=== PATIENT | female | born 1960 | race Caucasian/White ===

== ENCOUNTER 2019-06-04 10:34 | Outpatient (RCR) | payer OTHER, SELFPAY ==
--- NOTE | 2019-06-03 15:18 | PCCPR ---
Patient has NOT traveled outside of the [place] or had not had contact with someone who is ill that has traveled outside of the [place] in the past 21 days. She or anyone close to her has NOT traveled to an area of the [place] that is experiencing known transmission of the coronavirus.
[2019-06-04 11:59] VITALS: PULSE 84
--- NOTE | 2019-06-12 09:59 | PCCPR ---
Program is temporarily suspended due to COVID outbreak.
--- NOTE | 2019-06-26 11:55 | PCCPR ---
Left voicemail-checking in with patient.
--- NOTE | 2019-07-03 14:39 | PCCPR ---
Called to check in with patient. voicemail left. will follow weekly.
--- NOTE | 2019-07-10 13:45 | PCCPR ---
Weekly update call-Left message.
--- NOTE | 2019-07-17 15:24 | PCCPR ---
Weekly update call-informed patient of continued closure through the month of July due to the extension of the [facility] order. No questions at this time.
--- NOTE | 2019-09-13 13:46 | PCCPR ---
Francine notified two weeks ago regarding opening of Cardiac rehab on September 22. Left message to return our call if she would like to resume the program. No call back received, Francine discharged from program.
== END 2019-06-04 23:59 | disposition home or self-care (01) ==
LOC: ANHCPREHAB 10:34
PROVIDERS: PCP Family Medicine; Visit Provider Internal Medicine Cardiovascular Disease
DX: Z95.5 Presence of coronary angioplasty implant and graft (principal)
CPT/HCPCS: 93798

== ENCOUNTER 2019-12-06 15:21 | Emergency (ER) | payer OTHER, SELFPAY ==
--- NOTE | 2019-12-06 15:29 | ED.SKABFB ---
HPI - Skin/Abscess/Foreign Bdy General Chief complaint: Burn/Smoke Inhalation Stated complaint: BURN TO L HAND Source: patient and RN notes reviewed Limitations: no limitations History of Present Illness HPI narrative: The right-handed right hand patient, on several meds, presents with wound check of burn. The patient presents with about 1% or palmar sized, sunburn-like on the extensor aspect of her right hand --that occurred with coffee 3 days ago , on Monday. There was no blistering, but pain worsened today when she scuffed it against a folder, resulting in some minimal skin loss. Symptoms are mild, worse with palpation, only temporarily relieved with her use of aloe, skin creams. Her immunizations are reported up-to-date, and reports tetanus allergy. Related Data Home Medications Medication Instructions Recorded Confirmed albuterol sulfate 90 mcg/actuation 1 puff INHALATION Q4H PRN 03/14/19 09/25/19 aerosol inhaler metoprolol tartrate [Lopressor] 50 mg PO Q12H 04/04/19 09/25/19 rosuvastatin [Crestor] 20 mg PO DAILY 04/04/19 09/25/19 budesonide-formoterol [Symbicort] 2 puff INHALATION Q12H 06/04/19 09/25/19 lisinopril 40 mg PO DAILY 06/04/19 09/25/19 nitroglycerin [Nitrostat] 0.4 mg SUBLINGUAL ONCE PRN 06/04/19 09/25/19 topiramate [Topamax] 50 mg PO DAILY 06/04/19 09/25/19 Allergies Allergy/AdvReac Type Severity Reaction Status Date / Time carbamazepine Allergy Unknown Unknown Verified 05/21/19 17:20 Tetanus Vaccines and Toxoid Allergy Unknown Unknown Verified 05/21/19 17:20 tuberculin, purified protein Allergy Unknown Unknown Verified 05/21/19 17:20 deriva TETANUS TOXOID,FLUID Allergy Unknown Unknown Uncoded 05/21/19 17:20 Review of Systems Review of Systems: Narrative: General/Constitutional: No weight loss,fever Eyes: N0: Redness,discharge Ears/Nose/Throat: No: Epistaxis,ear discharge Respiratory: Denies: Hemoptysis Gastrointestinal: No Vomiting, Bleeding-rectal Skin: No Lumps, eruption Neurologic: No Focal Weakness,Sz Hematologic: Denies: Petechiae/Purpura Psychiatric: No: Suicida ideationl All Other Systems: Reviewed and Negative [facility] Past Medical History Medical History (Updated 12/06/19 @ 16:51 by Greg Khalil MD) CAD (coronary artery disease) Chest pain Essential hypertension Hyperlipemia RUQ pain Type 2 diabetes mellitus with hyperglycemia Wellness examination Surgical History Surgical History (Updated 09/25/19 @ 10:38 by Jennifer Park, PA-C) S/P arterial stent S/P cholecystectomy Family History Family History (Updated 06/04/19 @ 11:03 by Oliva Rene, SONDRA) Sibling Patient's sister is in good health Family history of type 2 diabetes mellitus Acute myocardial infarction Sibling Family history of type 2 diabetes mellitus Sibling Family history of type 2 diabetes mellitus Sibling Family history of type 2 diabetes mellitus Sibling Family history of type 2 diabetes mellitus Coronary artery disease involving coronary bypass graft Mother Family history of type 2 diabetes mellitus Acute myocardial infarction Coronary artery disease involving coronary bypass graft Cerebrovascular accident Hypertension Father Liver cancer Lupus Hypertension Social History Social History Smoking packs per day: 1 Smoking cigarettes per day: 20.0 Years smoked: 39 Smoking pack-years: 39.00 Smoking status: Current every day smoker Tobacco type: cigarettes Second hand tobacco smoke exposure: No Alcohol intake: never Substance use: never Substance use type: does not use Gender identity (if verbalized by the patient): Female Comments At time of signature, agree with nursing past medical, surgical, social and family history. There is no relevant family history pertinent to the presenting complaint Exam Narrative: Exam Narrative: General Appearance: Well appearing,, Conjunctiva cl
[2019-12-06 15:31] VITALS: BP 146/79; PULSE 99; RESP 20; TEMP 36.6; O2SAT 99
== END 2019-12-06 15:46 | disposition home or self-care (01) ==
PROVIDERS: Emergency Provider Emergency Medicine; PCP Family Medicine
DX: T23.162A Burn of first degree of back of left hand, initial encounter (principal); X10.0XXA Contact with hot drinks, initial encounter; F17.210 Nicotine dependence, cigarettes, uncomplicated; I25.10 Atherosclerotic heart disease of native coronary artery without angina pectoris; I10 Essential (primary) hypertension; E78.5 Hyperlipidemia, unspecified; E11.9 Type 2 diabetes mellitus without complications; Z95.5 Presence of coronary angioplasty implant and graft
CPT/HCPCS: 99213; G0463

== ENCOUNTER → 2019-12-31 15:08 | Outpatient (CLI) | payer OTHER, SELFPAY ==
--- NOTE | ~2019-12-31 | XR_ITS ---
EXAMINATION: [id number] INDICATION: Bilateral rib pain, pleurodynia TECHNIQUE: A frontal view of the chest and 3 views of the bilateral ribs were obtained. COMPARISON: 05/23/2017 FINDINGS: The lungs are free of acute opacities. There is no pleural effusion or pneumothorax. The ca rdiomediastinal silhouette is normal. No displaced rib fracture is identified. There is mild osteoart hritis of the shoulders. IMPRESSION: 1. No acute cardiopulmonary abnormality or evidence of displaced rib fracture. Reviewed, dictated and finalized at location A.
== END ==
PROVIDERS: PCP Family Medicine; Visit Provider Physician Assistant
DX: R07.81 Pleurodynia (principal)
CPT/HCPCS: 71111

== ENCOUNTER 2020-01-28 14:09 | Outpatient (CLI) | payer OTHER, SELFPAY ==
--- NOTE | ~2020-01-28 | US_ITS ---
EXAMINATION: US carotid duplex BI DATE: 01/28/2020 14:49 INDICATION: Right carotid bruit. TECHNIQUE: Grayscale, color Doppler, and pulsed Doppler images of the cervical carotid arteries were obtained. The degree of vessel stenosis is placed in one of the following categories: normal, <50%, 5 0-69%, >=70% but less than near-occlusion, near-occlusion, or total occlusion. Note that percent sten osis relative to normal distal artery lumen diameter is indirectly measured from velocity measurement s as described by Nic, et al. Radiology 2003; 229:340-346. COMPARISON: None. FINDINGS: RIGHT: The right common carotid artery (CCA) peak systolic velocity (PSV) is 81 cm/s. The right internal car otid artery (ICA) PSV is 78 cm/s. The right ICA end-diastolic velocity (EDV) is 35 cm/s. The right IC A/CCA PSV ratio is 1.0. Grayscale and color Doppler images yield an estimate of <50% diameter reducti on from plaque in the ICA. There is antegrade flow in the right vertebral artery. LEFT: The left CCA PSV is 96 cm/s. The left ICA PSV is 109 cm/s. The left ICA EDV is 46 cm/s. The left ICA/ CCA PSV ratio is 1.1. Grayscale and color Doppler images yield an estimate of <50% diameter reduction from plaque in the ICA. There is antegrade flow in the left vertebral artery. IMPRESSION: 1. <50% stenosis in the right internal carotid artery. 2. <50% stenosis in the left internal carotid artery. Reviewed, dictated and finalized at location B. MAN
== END 2020-01-28 14:10 | disposition home or self-care (01) ==
PROVIDERS: PCP Family Medicine; Visit Provider Internal Medicine Cardiovascular Disease
DX: I65.23 Occlusion and stenosis of bilateral carotid arteries (principal)
CPT/HCPCS: 93880

== ENCOUNTER 2020-02-28 08:07 | Outpatient (CLI) | payer OTHER, SELFPAY ==
--- NOTE | 2020-03-16 12:34 | WPDHOMESLEEP ---
Sleep Study - Home Unattended Date of Study: 02/28/20 Ordering Provider: Greg Nichols MD Interpreting Physician: Ritika Desouza MD Home Sleep Study Type: Apnea Link Air Height: 1.73 m Weight: 101.151 kg Body Mass Index: 33.9 Neck Circumference (inches): 14.5 Morse: 6 Reason for Sleep Study Tired all day, poor sleep Sleep History Francine Carson is a 59 year old female with no history of snoring however she does frequently have trouble sleeping with a cold. She occasionally awakens at night with heartburn, belching or coughing. She does not awaken from sleep feeling short of breath. She does not gasp for breath at night and does not have breathing problems at night reported to her by others. She occasionally sweats excessively at night. She frequently notices her heart pounding or beating irregularly at night. She does not fall asleep during the day, involuntarily, while driving, or during physical effort. She does not have loss of muscle tone was strong emotion. She rarely has daytime difficulties due to excessive sleepiness. She is a school nurse. She does not feel paralyzed on waking or falling asleep and does not have vivid dreamlike scenes upon awakening or falling asleep. She is not afraid to go to sleep. She does not wake up remembering having dreams. She denies having racing thoughts. She rarely feels sad or depressed, rarely has anxiety. She occasionally has muscular tension. She does not notice part her body jerking, she does not kick at night does not have crawling aching feelings in her legs. She occasionally has leg pain at night. She does not have morning jaw pain and does not grind her teeth during sleep. She occasionally is bothered by pain during the day and occasionally is awakened by pain at night. She rarely wakes up feeling stiff in the morning. She does not wake up with sore or achy muscles. She denies waking up with pain in the neck and spine. She has dizziness, fatigue, headaches, and palpitations. Normal bedtime is 8:30 p.m. falling asleep within 15-20 minutes. She typically wakes up 2 times at night long enough to urinate and then goes back to sleep. Sometimes she has leg cramps. If she has leg cramps she is awake for 20 minutes. She wakes the morning at 5:00 a.m.. On weekends she stays awake later until 10:00 p.m. and wakes in the morning at 8:00 a.m.. She estimates 7 hours of sleep at night. She denies taking naps. A short nap is not refreshing. Rarely does she wake up feeling refreshed in the morning. Habits: She smokes cigarettes 1/2 pack per day. Caffeine 2 cups of coffee per day. No alcohol or recreational drugs. [facility] Past Medical History Medical History (Updated 03/16/20 @ 12:46 by Ritika Desouza MD) CAD (coronary artery disease) Chest pain Diastolic heart failure Essential hypertension Hyperlipemia Hypothyroidism PAF (paroxysmal atrial fibrillation) RUQ pain Tobacco use disorder Type 2 diabetes mellitus with hyperglycemia Wellness examination Surgical History Surgical History (Updated 03/16/20 @ 12:43 by Ritika Desouza MD) S/P arterial stent S/P cholecystectomy Status post hysterectomy Status post rotator cuff repair Family History Family History Sibling Patient's sister is in good health Family history of type 2 diabetes mellitus Acute myocardial infarction Sibling Family history of type 2 diabetes mellitus Sibling Family history of type 2 diabetes mellitus Sibling Family history of type 2 diabetes mellitus Sibling Family history of type 2 diabetes mellitus Coronary artery disease involving coronary bypass graft Mother Family history of type 2 diabetes mellitus Acute myocardial infarction Coronary artery disease involving coronary bypass graft Cerebrovascular accident Hypertension Father Liver cancer Lupus Hypertension Social History Social History (Reviewed 03/16/20 @ 12:41
[2020-03-16 12:50] VITALS: BMI 33.9
== END 2020-02-28 08:08 | disposition home or self-care (01) ==
LOC: ANHCSM 08:07
PROVIDERS: PCP Family Medicine; Visit Provider Internal Medicine Cardiovascular Disease
DX: G47.10 Hypersomnia, unspecified (principal); G47.33 Obstructive sleep apnea (adult) (pediatric)
CPT/HCPCS: 95806

== ENCOUNTER 2020-03-24 06:55 | Outpatient (NON) | payer OTHER, SELFPAY ==
[2020-03-24 19:42] LABS: SARS-CoV-2 RNA PCR Negative
== END 2020-03-24 06:56 ==
LOC: ANHCOVIDDT 06:56
PROVIDERS: PCP Family Medicine; Visit Provider Nurse Practitioner Family
DX: R05 Cough (principal); Z20.822 Contact with and (suspected) exposure to COVID-19
CPT/HCPCS: C9803; U0003

== ENCOUNTER → 2020-06-24 07:13 | Outpatient (CLI) | payer OTHER, SELFPAY ==
--- NOTE | ~2020-06-24 | MR_ITS ---
EXAMINATION: MR hip LT wo con DATE: 06/24/2020 08:02 INDICATION: Left hip pain TECHNIQUE: Magnetic resonance imaging (MRI) of the left hip was performed without intravenous contra st. Sequences included full-field axial PD-weighted FS FSE and T1-weighted FSE, coronal of the pelvis with PD-weighted FS FSE, small field of view of the left hip with axial PD-weighted FS FSE, sagitta l PD-weighted FS FSE and coronal PD weighted FS FSE. Additional radial T1-weighted FGR oriented ortho gonal to the acetabular rim were obtained for evaluation of the labrum. COMPARISON: None FINDINGS: Bones/labrum/cartilage: Alignment is normal. No fracture, avascular necrosis or pathologic marrow replacing process. Mild os teoarthritis the left hip with nonuniform joint space narrowing resulting from mild partial-thickness cartilage loss with smooth chondral surface and without degenerative subchondral changes. There is a tear at the base of the superior glenoid labrum extending from the 1:00 position anteriorly to the 1 0:30 position posteriorly. Moderate lower lumbar spondylosis. Fluid: Symmetric physiologic amount of fluid within both hip joints. Soft tissues: Normal and symmetric muscle bulk and signal in the pelvis and visualized proximal thighs. Mild tendin opathy at without discrete tears at the ischial tuberosity origins of the bilateral hamstring tendons . Small amount fluid consistent with mild left and minimal right ischial bursitis. Bilateral iliopsoa s tendons are normal. Small to moderate-sized fluid collection overlying the left greater trochanter consistent with modera te trochanteric bursitis. There is heterotopic ossification along the anterior and lateral margins of the greater trochanter along the footplates of the left gluteus minimus and gluteus medius tendons. There is moderate tendinopathy of both the gluteus medius and minimus tendons. Partial tear involving the posterior aspect of the gluteus minimus tendon with additional heterotopic ossification along th e tear margin which is retracted approximately 1.5 similar proximally from the footplate. The tear ex tends to involve the anterior two thirds of the lateral facet footplate of the gluteus medias tendon which appears attenuated. There is no well-defined gluteus medius tear plane however a portion of the torn tendon is retracted approximately 2.5 cm in the footplate. The posterior portion of the gluteus medias tendon attached to the posterior superior facet of the greater tuberosity remains intact with mild tendinopathy. Similar though less severe findings are seen at the right greater trochanter with more limited evalua tion due to the larger field of view of imaging. This includes similar heterotopic ossification at th e anterior facet of the right greater trochanter with mild gluteus minimus bursitis and moderate tend inopathy and likely mild partial tear of the right gluteus minimus tendon. Mild tendinopathy but with out discrete tear of the right gluteus medias tendon. The uterus is not identified and has likely bee n surgically resected. Limited evaluation of visceral organs of the pelvis is otherwise unremarkable including a normal appendix. No pathologically enlarged pelvic/inguinal lymphadenopathy. IMPRESSION: 1. Moderate left trochanteric bursitis with moderate tendinopathy and partial tears of the left glute us medius medius and minimus tendons with heterotopic ossicles along the greater trochanter pre-exist ing chronic enthesopathy. 2. Similar though significantly less advanced findings at the right hip which is not diagnostically e valuated on the larger field of view images. 3. Mild left hip osteoarthritis with tear of the superior glenoid labrum. Reviewed, dictated and finalized at location B.
== END ==
PROVIDERS: PCP Family Medicine; Visit Provider Physician Assistant
DX: M16.12 Unilateral primary osteoarthritis, left hip (principal); M70.62 Trochanteric bursitis, left hip
CPT/HCPCS: 73721

== ENCOUNTER 2020-10-06 15:14 | Outpatient (CLI) | payer OTHER, SELFPAY ==
--- NOTE | ~2020-10-06 | MM_ITS ---
EXAMINATION: MM screening елена BI w erika HISTORY: Screening TECHNIQUE: Craniocaudal and mediolateral oblique 3-D tomosynthesis images were obtained and synthetic 2-D images were generated. CAD analysis was submitted and interpreted. COMPARISON: No prior mammogram is available for comparison at this institution. BREAST PARENCHYMAL COMPOSITION: The breasts are almost entirely fatty. FINDINGS: There is no evidence of suspicious mass, calcification, or architectural distortion to sugg est malignancy in either breast. There has been no suspicious interval change. IMPRESSION: 1. No mammographic evidence of malignancy. 2. Recommend routine screening mammography in one year. BI-RADS Category 1: Negative Reviewed, dictated and finalized at location A.
== END 2020-10-06 15:15 | disposition home or self-care (01) ==
LOC: ANHIMG 15:17
PROVIDERS: PCP Family Medicine; Visit Provider Family Medicine
DX: Z12.31 Encounter for screening mammogram for malignant neoplasm of breast (principal)
CPT/HCPCS: 77063; 77067

== ENCOUNTER 2020-12-31 02:12 | Day surgery (SDC) | payer OTHER, SELFPAY ==
[2020-12-30 14:27] VITALS: BMI 33.8
[2020-12-31] VITALS (9 sets, daily range): BP systolic 130–157; BP diastolic 56–97; PULSE 75–86; RESP 13–22; TEMP 36.1; O2SAT 94–97; BMI 33.8
[2020-12-31 08:00] LABS: Basophils Percent Auto 0.6 % (0.2-1.2); Eosinophils Absolute Auto 0.4 K/mm3 (0-0.3); Eosinophils Percent Auto 5.2 % (0-4.4); Hemoglobin 13.7 g/dL (12.0-15.0); Immature Granulocyte Absolute 0.01 K/mm3 (0.00-0.031); Immature Granulocyte Percent A 0.1 % (0-0.5); Lymphocytes Absolute Auto 2.64 K/mm3 (0.9-3.2); Lymphocytes Percent Auto 37.1 % (18.3-44.2); Mean Corpuscular HGB Conc 32.6 g/dl (32-36); Mean Corpuscular Hemoglobin 31.1 pg (26-34); Mean Corpuscular Volume 95.2 fl (80-100); Mean Platelet Volume 10.3 fl (7.4-10.4); Monocytes Absolute Auto 0.3 K/mm3 (0.1-0.6); Monocytes Percent Auto 4.4 % (2.6-8.5); Neutrophils Absolute Auto 3.7 K/mm3 (1.3-6.7); Neutrophils Percent Auto 52.6 % (45.5-73.1); Platelet Count Result 178 k/mm3 (150-375); Red Blood Count 4.41 M/mm3 (4.2-5.4); Red Cell Distribution Width 14.5 % (11.5-14.5); White Blood Count 7.1 K/mm3 (4.5-10.0)
[2020-12-31 08:09] LABS: Anion Gap 9 mmol/L (8-16); Blood Urea Nitrogen 9 mg/dL (7-17); Calcium 9.7 mg/dL (8.4-10.2); Carbon Dioxide 28 mmol/L (22-30); Chloride 107 mmol/L (98-107); Estimated CRCL calculation 66 ml/min; Estimated Glomerular Filt Rate 57; Glucose 122 mg/dL (65-110); Potassium 4.5 mmol/L (3.4-5.0); Sodium 144 mmol/L (137-145)
[2020-12-31 08:11] LABS: INR 0.9; Prothrombin Time 12.1 Seconds (11.1-14.7)
--- NOTE | 2020-12-31 09:34 | WPDHPUPDATE1 ---
History and Physical Update Update Date/Time: 12/31/20 09:34 History and Physical has been reviewed, including an updated exam of the patient. There are NO changes in the patient's condition. Risks, benefits, and alternatives have been discussed and questions answered. Patient agrees to proceed with procedure.
--- NOTE | 2020-12-31 09:34 | WPDMODSED ---
Moderate Sedation Note-Pt Data Patient Data Allergies Allergy/AdvReac Type Severity Reaction Status Date / Time carbamazepine Allergy Unknown Unknown Verified 12/30/20 14:10 Tetanus Vaccines and Toxoid Allergy Unknown Unknown Verified 12/30/20 14:10 tuberculin, purified protein Allergy Unknown Unknown Verified 12/30/20 14:10 deriva TETANUS TOXOID,FLUID Allergy Unknown Unknown Uncoded 12/30/20 14:10 Home Medications Medication Instructions Recorded Confirmed Type albuterol sulfate 90 mcg/actuation 1 puff INHALATION Q4H PRN 03/14/19 12/30/20 History aerosol inhaler metoprolol tartrate [Lopressor] 50 mg PO Q12H 04/04/19 12/30/20 History rosuvastatin [Crestor] 20 mg PO DAILY 04/04/19 12/30/20 History Xarelto 20 mg PO DAILY #0 tablet 04/05/19 12/30/20 Rx clopidogrel 75 mg tablet 75 mg PO DAILY #30 tablet 04/18/19 12/30/20 Rx budesonide-formoterol [Symbicort] 2 puff INHALATION Q12H 06/04/19 12/30/20 History lisinopril 40 mg PO DAILY 06/04/19 12/30/20 History nitroglycerin [Nitrostat] 0.4 mg SUBLINGUAL ONCE PRN 06/04/19 12/30/20 History topiramate [Topamax] 50 mg PO DAILY 06/04/19 12/30/20 History ranolazine 1,000 mg 1,000 mg PO Q12H 05/19/20 12/30/20 History tablet,extended release,12 hr hydrocodone 5 mg-acetaminophen 325 1 tablet PO Q8H PRN #30 tablet 06/05/20 12/30/20 Rx mg tablet dulaglutide 3 mg/0.5 mL 3 mg SUBCUT WEEKLY #2 ml 09/22/20 12/30/20 Rx subcutaneous pen injector metformin 500 mg tablet 500 mg PO BID #60 tablet 11/30/20 12/30/20 Rx Current Medications: Active Medications Sodium Chloride (Normal Saline Iv) 500 mls @ 100 mls/hr IV CONT .Q5H SERJIO Sedation/Anesthesia: No previous sedation/anesthesia problems (including family history). [facility] Past Medical History Medical History CAD (coronary artery disease) Chest pain Diastolic heart failure Essential hypertension Hyperlipemia Hypertension with heart disease Hypothyroidism PAF (paroxysmal atrial fibrillation) RUQ pain Tobacco use disorder Type 2 diabetes mellitus with hyperglycemia Wellness examination Surgical History Surgical History S/P arterial stent S/P cholecystectomy Status post hysterectomy Status post rotator cuff repair Family History Family History Sibling Patient's sister is in good health Family history of type 2 diabetes mellitus Acute myocardial infarction Sibling Family history of type 2 diabetes mellitus Sibling Family history of type 2 diabetes mellitus Sibling Family history of type 2 diabetes mellitus Sibling Family history of type 2 diabetes mellitus Coronary artery disease involving coronary bypass graft Mother Family history of type 2 diabetes mellitus Acute myocardial infarction Coronary artery disease involving coronary bypass graft Cerebrovascular accident Hypertension Father Liver cancer Lupus Hypertension Social History Social History Smoking packs per day: 0.5 Smoking cigarettes per day: 10.0 Years smoked: 39 Smoking pack-years: 19.50 Smoking status: Current every day smoker Tobacco type: cigarettes Second hand tobacco smoke exposure: No Alcohol intake: never Substance use: never Substance use type: does not use Living arrangements: alone Additional living arrangements comments: significant other Gender identity (if verbalized by the patient): Female Sexual Orientation (if Verbalized by the Patient): Straight or Heterosexual Spiritual care concerns: No Mod Sed Physical Exam Physical Exam Pre Procedural Exam: Normal: Appearance, Eyes, Ears, Nose, Neck, Throat, Airway, Lungs, Heart Size, Heart Rate, Heart Rhythm, Neuro Exam, Abdomen, Liver, Kidneys, Spleen, Breasts, Genitalia, Extremities and Skin Hours since solid foods: 8 Hours si
--- NOTE | 2020-12-31 09:34 | WPDCARDPROC ---
Cardiac Cath Procedure Note Date of procedure:: 12/31/20 Performing physician:: Dulce Santos MD Date of service 12/31/2020 Indication:: recurrent chest pain despite negative stress test Brief clinical history:: this 60-year-old female with past history of COPD, hypertension, diabetes, hyperlipidemia and previous stent to the RCA 2020. She was referred to catheterization today by Dr. myrick due to recurrent episodes of chest pain. She underwent stress test that was negative for ischemia. Procedure Procedure performed:: 1-Moderate sedation that started at 9:11 a.m.and ended at 9:27 a.m. total duration 16 minutes using 2mg of Versed and 50mcg fentanyl. The registered nurse was Jamia Lund. 2-Selective left and right coronary angiogram. 3-Left heart catheterization with measurement of LVEDP and measurement of gradient across aortic valve. 4- LV angiogram. 4-Right common femoral arterial angiogram. 5-Deployment of 6 Italian Angio-Seal. Sedation/Medication given:: Moderate sedation. Access site:: Right common femoral artery. Estimated blood loss:: 10cc Procedure note:: After informed consent patient was brought in to catheterization laboratory technician with the was draped and prepped in usual manner. Moderate sedation was given and the right groin was infiltrated using 1% lidocaine. Five Italian sheath was obtained using micropuncture needle and the modified Seldinger technique. Selective left coronary angiogram was done using JL4 catheter with the tip of the catheter placed in the left main coronary artery. Selective right coronary angiogram was done using JR4 catheter with the tip of the catheter placed to the right coronary artery. After that 5 Italian pigtail catheter was advanced across the aortic valve into the left ventricle with measurement of LVEDP and measurement of gradient across aortic valve. LV angiogram was done as well.Right common femoral arterial angiogram was done. Findings:: 1- left coronary artery is a large artery that divides into large LAD, large circumflex artery. Left main is Free of disease. 2- left anterior descending artery is a large artery that runs and wraps around the apex. It is very tortuous artery especially after it takes off from the left main. Has minimal irregularities. Large diagonal branch has minimal irregularities. 3- leftcircumflex artery is a large artery , tortuous. Minimal irregularities. Large OM1 with minimal irregularities. 4- right coronary artery is Large artery and dominant. Patent stent proximally. Small with 30% stenosis in the mid segment. 5- LVEDP was 15 mm mercuryand no gradient across aortic valve. 5- LV angiogram shows normal LV systolic function with no wall motion abnormalities. Estimated ejection fraction 65%. 6- opening arterial pressure was 140/80 and closing pressure was 130/70 7- right femoral artery angiogram shows no significant disease in the right common femoral artery. Conclusion:: patent stent in the RCA. - nonocclusive CAD as described above. Assessment and Plan Additional Plan 1- continue risk factor modification for CAD. 2- continue Plavix and Eliquis. 3- aggressive risk factor modification for CAD.
--- NOTE | 2020-12-31 13:08 | SUR.PHASEII ---
All discharge instructions reviewed with patient. All questions answered by RN. Per verbal order from Dr. Santos, patient to resume Xarelto tomorrow- patient informed and verbalizes understanding. Patient also received return to work (01/04/2021) form from Gela Jones NP. Patient escorted to vehicle via WC by staff, where she was picked up by Hola, her significant other.
== END 2020-12-31 13:05 | disposition home or self-care (01) ==
PROVIDERS: PCP Family Medicine; Visit Provider Internal Medicine Cardiovascular Disease
PROC: 4A023N7 Measurement of Cardiac Sampling and Pressure, Left Heart, Percutaneous Approach (ICD-10-PCS; CPT 93452; principal; 2020-12-31 09:00)
DX: I25.10 Atherosclerotic heart disease of native coronary artery without angina pectoris (principal); R07.9 Chest pain, unspecified; I11.0 Hypertensive heart disease with heart failure; I50.30 Unspecified diastolic (congestive) heart failure; I48.0 Paroxysmal atrial fibrillation; E11.9 Type 2 diabetes mellitus without complications; E78.5 Hyperlipidemia, unspecified; E03.9 Hypothyroidism, unspecified; Z95.5 Presence of coronary angioplasty implant and graft; F17.210 Nicotine dependence, cigarettes, uncomplicated; Z79.51 Long term (current) use of inhaled steroids; Z79.01 Long term (current) use of anticoagulants; Z79.02 Long term (current) use of antithrombotics/antiplatelets; Z79.899 Other long term (current) drug therapy; Z79.84 Long term (current) use of oral hypoglycemic drugs
CPT/HCPCS: 36415; 80048; 85025; 85610; 93458; A9270; C1760; C1887; C1894; G0269; J1644; J2250; J3010; J7040

== ENCOUNTER 2021-01-21 12:49 | Outpatient (CLI) | payer OTHER, SELFPAY ==
--- NOTE | ~2021-01-21 | XR_ITS ---
XR chest 2V DATE: 01/21/2021 13:16 INDICATION: Cough. Acute upper respiratory infection. TECHNIQUE: PA and lateral views COMPARISON: 05/23/2017 two-view chest FINDINGS: Normal heart size. Aortic arch calcification. No hilar or mediastinal enlargement. The lungs are clear of infiltrate or consolidation. No pleural effusion or pulmonary vascular congest ion or pneumothorax. Surgical clips overlie the upper abdomen on lateral view, likely due to cholecystectomy. Diffuse osteopenia. There is degenerative spurring and mild scoliosis of the thoracic spine. IMPRESSION: No active cardiopulmonary disease Reviewed, dictated and finalized at location A.
== END 2021-01-21 12:50 | disposition home or self-care (01) ==
LOC: ANHIMG 12:57
PROVIDERS: PCP Family Medicine; Visit Provider Physician Assistant
DX: J06.9 Acute upper respiratory infection, unspecified (principal)
CPT/HCPCS: 71046

== ENCOUNTER 2021-06-23 12:10 | Observation (INO) | payer OTHER, SELFPAY ==
[2021-06-23] VITALS (15 sets, daily range): BP systolic 93–166; BP diastolic 58–86; PULSE 79–146; RESP 18–21; TEMP 36.3–36.9; O2SAT 97–100; BMI 33.3; BMI 34.4
--- NOTE | ~2021-06-23 | US_ITS ---
EXAMINATION: US carotid duplex BI EXAM DATE: 06/24/2021 11:57 INDICATION: Syncope. TECHNIQUE: Grayscale, color and pulsed Doppler images of the cervical carotid arteries were obtained . The degree of vessel stenosis is placed in one of the following categories: normal, <50% stenosis, 50-69% stenosis, >=70% stenosis but less than near-occlusion, near-occlusion, or occlusion. Note that percent stenosis relative to normal distal artery lumen diameter is indirectly measured from velocit y measurements as described by Nic, et al. Radiology 2003; 229:340-346. Comparison is made to prior examination from 01/28/2020. FINDINGS: RIGHT SIDE: Right common carotid artery peak systolic velocity (PSV in cm/s): 52 Right bulb/internal carotid artery peak systolic velocity (PSV in cm/s): 66 Right internal carotid artery end diastolic velocity (EDV in cm/s): 28 Right ICA/CCA peak systolic ratio: 1.3 Right external carotid artery peak systolic velocity (PSV in cm/s): 93 Right vertebral artery antegrade flow: yes There is mild to moderate carotid bulb plaque. Velocity and Doppler waveforms in the common and internal carotid arteries is normal. LEFT SIDE: Left common carotid artery peak systolic velocity (PSV in cm/s): 58 Left bulb/internal carotid artery peak systolic velocity (PSV in cm/s): 68 Left internal carotid artery end diastolic velocity (EDV in cm/s): 31 Left ICA/CCA peak systolic ratio: 1.2 Left external carotid artery peak systolic velocity (PSV in cm/s): 69 Left vertebral artery antegrade flow: yes There is mild to moderate carotid bulb plaque. Velocity and Doppler waveforms in the common and internal carotid arteries is normal. IMPRESSION: 1. Less than 50 percent stenosis in the right internal carotid artery. 2. Less than 50 percent stenosis in the left internal carotid artery. Reviewed, dictated and finalized at location A.
--- NOTE | 2021-06-23 12:18 | ECG_ITS ---
Measurements Intervals [place] Rate: 127 P: DE: 0 QRS: -6 QRSD: 94 T: 55 QT: 317 QTc: 461 Interpretive Statements ATRIAL FIBRILLATION WITH RAPID VENTRICULAR RESPONSE WITH ABERRANT CONDUCTION OR VENTRICULAR PREMATURE COMPLEXES MINIMAL VOLTAGE CRITERIA FOR LVH, CONSIDER NORMAL VARIANT [MEETS CRITERIA IN ONE OF: R(aVL), S(V1), R(V5), R(V5/V6)+S(V1)] NONSPECIFIC ST & T-WAVE ABNORMALITY COMPARED TO ECG 04/04/2019 17:30:39 ATRIAL FIBRILLATION NOW PRESENT Electronically Signed On 06-23-2021 14:25:49 CDT by Anju Lozano M.D.
[2021-06-23] MEDS: dilTIAZem HCl INJ 25 MG/5 ML VIAL 10 MG IV PUSH (12:42)
[2021-06-23] MEDS: SODIUM CHLORIDE 0.9% IV 1,000 ML 150 ML IV CONT (12:42)
[2021-06-23 12:50] LABS: Basophils Percent Auto 0.3 % (0.2-1.2); Eosinophils Absolute Auto 0.4 K/mm3 (0-0.3); Eosinophils Percent Auto 4.3 % (0-4.4); Hematocrit 40.7 % (37.0-47.0); Hemoglobin 13.5 g/dL (12.0-15.0); Immature Granulocyte Absolute 0.03 K/mm3 (0.00-0.031); Immature Granulocyte Percent A 0.3 % (0-0.5); Lymphocytes Absolute Auto 4.01 K/mm3 (0.9-3.2); Lymphocytes Percent Auto 42.2 % (18.3-44.2); Mean Corpuscular HGB Conc 33.2 g/dl (32-36); Mean Corpuscular Hemoglobin 31.8 pg (26-34); Mean Corpuscular Volume 95.8 fl (80-100); Mean Platelet Volume 10.3 fl (7.4-10.4); Monocytes Absolute Auto 0.5 K/mm3 (0.1-0.6); Monocytes Percent Auto 5.6 % (2.6-8.5); Neutrophils Absolute Auto 4.5 K/mm3 (1.3-6.7); Neutrophils Percent Auto 47.3 % (45.5-73.1); Platelet Count Result 192 k/mm3 (150-375); Red Blood Count 4.25 M/mm3 (4.2-5.4); Red Cell Distribution Width 13.6 % (11.5-14.5); White Blood Count 9.5 K/mm3 (4.5-10.0)
[2021-06-23 13:02] LABS: Alanine Aminotransferase 17 U/L (4-35); Albumin Level 4.5 g/dL (3.5-5.1); Alkaline Phosphatase 77 U/L (38-126); Anion Gap 10 mmol/L (8-16); Aspartate Amino Transferase 24 U/L (14-36); Bilirubin,Total 0.4 mg/dL (0.2-1.3); Blood Urea Nitrogen 11 mg/dL (7-17); Calcium 9.2 mg/dL (8.4-10.2); Carbon Dioxide 21 mmol/L (22-30); Chloride 110 mmol/L (98-107); Estimated CRCL calculation 65 ml/min; Estimated Glomerular Filt Rate 56; Glucose 94 mg/dL (65-110); Potassium 4.3 mmol/L (3.4-5.0); Sodium 141 mmol/L (137-145)
--- NOTE | 2021-06-23 13:41 | ED.GENADULT ---
HPI - General Adult General Chief complaint: Dizziness Stated complaint: afib Time Seen by Provider: 06/23/21 12:15 Source: patient Mode of arrival: ambulatory Limitations: no limitations History of Present Illness HPI narrative: 61-year-old with a history of A. fib on Xarelto, hyperlipidemia, diabetes here with complaints of dizziness since this morning. Patient states she been to Dr. Nichols's office was found to be having high heart rate and low blood pressure was later referred to the ER. Patient presently denies any chest pain or shortness of breath. No history of nausea or vomiting. Onset (ago): day(s) (1) Exacerbating factors: none Associated symptoms: denies other symptoms Related Data Home Medications Medication Instructions Recorded Confirmed albuterol sulfate 90 mcg/actuation 1 puff INHALATION Q4H PRN 03/14/19 06/16/21 aerosol inhaler rosuvastatin [Crestor] 20 mg PO DAILY 04/04/19 06/16/21 budesonide-formoterol [Symbicort] 2 puff INHALATION Q12H 06/04/19 06/16/21 lisinopril 40 mg PO DAILY 06/04/19 06/16/21 nitroglycerin [Nitrostat] 0.4 mg SUBLINGUAL ONCE PRN 06/04/19 06/16/21 topiramate [Topamax] 50 mg PO DAILY 06/04/19 06/16/21 furosemide 20 mg tablet 20 mg PO QAM 01/13/21 06/16/21 metoprolol tartrate 50 mg tablet 150 mg PO Q12H tablet 01/13/21 06/16/21 ranolazine 1,000 mg 2,000 mg PO Q12H tablet 01/13/21 06/16/21 tablet,extended release,12 hr Allergies Allergy/AdvReac Type Severity Reaction Status Date / Time carbamazepine Allergy Unknown Unknown Verified 06/23/21 12:25 Tetanus Vaccines and Toxoid Allergy Unknown Unknown Verified 06/23/21 12:25 tuberculin, purified protein Allergy Unknown Unknown Verified 06/23/21 12:25 deriva TETANUS TOXOID,FLUID Allergy Unknown Unknown Uncoded 06/23/21 12:25 Review of Systems Review of Systems: All systems reviewed & are unremarkable except as noted in HPI and below Constitutional: Constitutional: Reports no additional constitutional complaints Eyes: Eyes: Reports no additional eye complaints ENT: Reports system reviewed and no additional complaints, except as documented Cardiovascular: Cardiovascular: Reports as per HPI Respiratory: Respiratory: Reports no additional respiratory complaints Gastrointestinal: Gastrointestinal: Reports no additional gastrointestinal complaints Musculoskeletal: Musculoskeletal: Reports no additional musculoskeletal complaints Integumentary/Breasts: Skin/Breast: Reports system reviewed and no additional complaints, except as docu Neurologic: Reports system reviewed and no additional complaints, except as documented PMFSH Past Medical History Medical History CAD (coronary artery disease) Chest pain Controlled diabetes mellitus Diastolic heart failure Essential hypertension Hyperlipemia Hypertension with heart disease Hypothyroidism PAF (paroxysmal atrial fibrillation) RUQ pain Tobacco use disorder Type 2 diabetes mellitus with hyperglycemia Wellness examination Surgical History Surgical History S/P arterial stent S/P cholecystectomy Status post hysterectomy Status post rotator cuff repair Family History Family History Sibling Patient's sister is in good health Family history of type 2 diabetes mellitus Acute myocardial infarction Sibling Family history of type 2 diabetes mellitus Sibling Family history of type 2 diabetes mellitus Sibling Family history of type 2 diabetes mellitus Sibling Family history of type 2 diabetes mellitus Coronary artery disease involving coronary bypass graft Mother Family history of type 2 diabetes mellitus Acute myocardial infarction Coronary artery disease involving coronary bypass graft Cerebrovascular accident Hypertension Father Liver cancer Lupus Hypertension Social History Social History (R
[2021-06-23] MEDS: dilTIAZem 100 MG/100 ML 100 MG/100 ML BAG IV CONT (13:42)
[2021-06-23 15:02] LABS: Glucose Point of Care 95 mg/dl (65-105)
--- NOTE | 2021-06-23 15:02 | ADMGEN ---
This patient, Francine Carson, was admitted to IMU Room 203-01. Patient/family oriented to hospital policies and general routines including ID bracelet, bed and alarms, visiting hours, pain management, procedures, bathroom and other care routines, personal items, smoking policy, room service/diet, and visiting hours. Information on how to activate the Rapid Response Team has been discussed. Patient/Family are encouraged to report perceived risks to care and to ask questions if they do not understand what they are told or what they should do.
[2021-06-23 17:03] LABS: Troponin I < 0.012 ng/mL (0.000-0.034)
--- NOTE | 2021-06-23 17:10 | PM.CNCAR ---
Assessment and Plan Assessment and plan (1) PAF (paroxysmal atrial fibrillation): Code(s): I48.0 - Paroxysmal atrial fibrillation Status: Acute Assessment and Plan: History of PAF which has been asymptomatic for several years. However her Smart Watch tells her she is in a tachycardia couple times a week, so she may have more PAF than we are aware of. Found to have AFib RVR today despite taking metoprolol 150 mg b.i.d., with no sensation of palpitations, and subsequently has converted to sinus rhythm on a Cardizem drip. Discontinue Cardizem drip, continue metoprolol 150 mg b.i.d. and Xarelto Discussed w/ Dr. Nichols; will try Multaq to help pt maintain NSR. Hopefully discharge tomorrow. (2) Low blood pressure: Code(s): I95.9 - Hypotension, unspecified Status: Acute Assessment and Plan: Intermittent problems with dizziness and low blood pressure recently. May be unrelated to AFib, at least part of the time Will discontinue lisinopril completely and follow blood pressure as an outpatient. (3) CAD (coronary artery disease): Code(s): I25.10 - Atherosclerotic heart disease of [place] coronary artery without angina pectoris Status: Acute Assessment and Plan: History of CAD an RCA stent Microvascular angina seems improved on isosorbide. (4) Essential hypertension: Code(s): I10 - Essential (primary) hypertension Status: Acute Assessment and Plan: Somewhat labile blood pressure, history of hypertension History of Present Illness History of Present Illness Consult date/time: 06/23/21 17:10 Requesting physician: Arie Magdaleno MD Consult reason: atrial fibrillation Reason For Visit: Afib with RVR Narrative: Francine Carson is a 61-year-old female whom we are asked to see at the request of Dr. Moreau for advice and opinion regarding her AFib RVR. The patient is followed by Dr. Nichols for her history of paroxysmal atrial fibrillation (anticoagulated with Xarelto), coronary artery disease, chronic diastolic heart failure, hyperlipidemia and hypertension. She also has a history of sleep apnea on CPAP and diabetes as well as tobacco use. She has not had any atrial fibrillation for a long time and was last seen by Dr. Nichols in 06/21/2021 complaining of intermittent dizziness. She was in sinus rhythm. At that visit she w/o lightheadedness and her SBP was 98, so her lisinopril was decreased fr 20 mg to 10 mg daily. She has continued to feel lightheaded and has systolic blood pressures in the 90s at times. The patient did not feel well with dizziness today and came to Dr. Nichols's office, found to have AFib RVR HR 140's with low blood pressure and referred to the emergency room. She denied any sensation of palpitations, chest discomfort or shortness of breath. She was started on a Cardizem drip and has converted to NSR.BP has been variable, from 93 to 166 systolic. Interestingly, her Apple Watch tells her that her HR is in the 130's about twice a week; she feels fine when this occurs. She had a right coronary stent in 2019. She continues to have intermittent chest pain which is thought to be due to microvascular angina. She had another cardiac catheterization around December 2020 which showed no obstructive coronary disease, EF 65%. . Review of Systems Constitutional: Constitutional: Reports weakness Eyes: Eyes: Reports no additional eye complaints Cardiovascular: Cardiovascular: Reports chest pain (CP/angina has improved since isosorbide started) Respiratory: Respiratory: Denies cough and Denies dyspnea Gastrointestinal: Gastrointestinal: Denies abdominal pain Genitourinary: Genitourinary: Denies hematuria Musculoskeletal: Musculoskeletal: Reports arthralgias Integumentary/Breasts: Skin/Breast: Denies rash Neurologic: Reports system reviewed and no additional complaints, except as documented Psychiatric: Psychiatric: Reports no additional psychiatri
[2021-06-23 17:24] LABS: Glucose Point of Care 107 mg/dl (65-105)
--- NOTE | 2021-06-23 18:30 | PM.IMHP ---
H&P: HPI History of Present Illness Date/Time: 06/23/21 18:30 Chief Complaint: Dizziness, AFib/RVR. Narrative: This is a 61-year-old female smoker with paroxysmal atrial fibrillation on anticoagulation, coronary artery disease with history of stent to the RCA, type 2 diabetes mellitus, chronic obstructive pulmonary disease, hypertension, hyperlipidemia, diastolic congestive heart failure, sleep apnea, and hypothyroidism who presented to the emergency department for evaluation of dizziness and AFib/RVR. She is a patient of Dr. Nichols and saw him in the office in April at which time she mentioned ongoing intermittent chest pain despite taking Ranexa and she was started on isosorbide with some improvement. She saw him in the office again on 06/21/2021 complaining of intermittent dizziness and lightheadedness at which time her blood pressure was in the high 90s systolic prompting her lisinopril dose to be decreased in half from 20 to 10 mg daily. Unfortunately she continues to have intermittent episodes of lightheadedness and this morning at work she had a near syncopal episode. She returned to the office at which time her blood pressures were soft and she was found to be in atrial fibrillation with rapid ventricular response, of what she really is asymptomatic. She has since been started on a Cardizem drip and admitted to the IMU. At the time my evaluation she is back in a sinus rhythm and is feeling okay, with no complaints. She denies chest pain, shortness breast, palpitations, and pleuritic pain. She is not feeling lightheaded or dizzy at this time. No recent illnesses. She denies fever, chills, and sweats. No cold or flu symptoms. Review of Systems Review of Systems: Twelve systems were reviewed and are negative except for as per HPI. [facility]LY [facility] Past Medical History Medical History (Updated 06/23/21 @ 21:20 by Zita Miller PA-C) Chest pain Chronic anticoagulation Controlled diabetes mellitus Coronary artery disease Status post right coronary artery stent in 2019. Left heart catheterization in December 2020 showed a patent stent with nonocclusive 30% stenosis of the mid RCA. Diastolic heart failure Essential hypertension Hyperlipemia Hypertension Hypothyroidism Obstructive sleep apnea on CPAP Paroxysmal atrial fibrillation Tobacco use disorder Type 2 diabetes mellitus Surgical History Surgical History (Updated 06/23/21 @ 21:15 by Zita Miller PA-C) History of cholecystectomy History of heart artery stent (2019) Right coronary artery. Status post hysterectomy Status post rotator cuff repair Family History Family History Sibling Patient's sister is in good health Family history of type 2 diabetes mellitus Acute myocardial infarction Sibling Family history of type 2 diabetes mellitus Sibling Family history of type 2 diabetes mellitus Sibling Family history of type 2 diabetes mellitus Sibling Family history of type 2 diabetes mellitus Coronary artery disease involving coronary bypass graft Mother Family history of type 2 diabetes mellitus Acute myocardial infarction Coronary artery disease involving coronary bypass graft Cerebrovascular accident Hypertension Father Liver cancer Lupus Hypertension Social History Social History (Updated 06/23/21 @ 21:16 by iZta Miller PA-C) Social History: Surrogate decision maker: Hola Ortiz, significant other. Code status: Full code. Smoking packs per day: 0.5 Smoking cigarettes per day: 10.0 Years smoked: 40 Smoking pack-years: 20.00 Smoking status: Current every day smoker Tobacco type: cigarettes Second hand tobacco smoke exposure: No Alcohol intake: former Substance use: never Substance use type: does not use Spiritual care concerns: No Meds Home Medications and Allergies Home Medications Medication Instructions Recorded Confirmed Type albuterol foley
[2021-06-23 20:05] LABS: Troponin I < 0.012 ng/mL (0.000-0.034)
[2021-06-23 20:26] LABS: Glucose Point of Care 161 mg/dl (65-105)
[2021-06-23] MEDS: METOPROLOL TARTRATE 50 MG TAB 150 MG PO (21:00)
[2021-06-23] MEDS: RANOLAZINE 500 MG TAB.ER.12H 2000 MG PO (23:03)
[2021-06-24] VITALS (11 sets, daily range): BP systolic 107–134; BP diastolic 49–72; PULSE 75–87; RESP 15–22; TEMP 36.4–36.6; O2SAT 96–97
[2021-06-24 05:09] LABS: Hemoglobin A1C 6.2 % (<5.7)
[2021-06-24 05:17] LABS: Anion Gap 8 mmol/L (8-16); Blood Urea Nitrogen 8 mg/dL (7-17); Calcium 8.7 mg/dL (8.4-10.2); Carbon Dioxide 23 mmol/L (22-30); Chloride 109 mmol/L (98-107); Estimated CRCL calculation 60 ml/min; Estimated Glomerular Filt Rate 50; Glucose 114 mg/dL (65-110); Magnesium 2.1 mg/dL (1.6-2.3); Potassium 4.3 mmol/L (3.4-5.0); Sodium 140 mmol/L (137-145)
[2021-06-24] MEDS: FLUTICASONE/SALMETEROL 45-21 MCG INHALER 1 PUFF 2 PUFF INHALATION (07:58)
[2021-06-24] MEDS: TOPIRAMATE 25 MG TABLET 50 MG PO (09:01)
[2021-06-24] MEDS: metFORMIN HCL 500 MG TABLET PO (09:01)
[2021-06-24] MEDS: ROSUVASTATIN 10 MG TABLET 20 MG PO (09:01)
[2021-06-24] MEDS: CLOPIDOGREL BISULFATE 75 MG TABLET PO (09:01)
[2021-06-24] MEDS: FUROSEMIDE 20 MG TABLET PO (09:02)
[2021-06-24] MEDS: DRONEDARONE HCL 400 MG TABLET PO (09:02)
[2021-06-24] MEDS: ISOSORBIDE MONONITRATE 30 MG TAB.ER.24H PO (09:02)
[2021-06-24] MEDS: RANOLAZINE 500 MG TAB.ER.12H 2000 MG PO (09:02)
[2021-06-24] MEDS: METOPROLOL TARTRATE 50 MG TAB 150 MG PO (09:02)
--- NOTE | 2021-06-24 09:06 | PM.PNCARD ---
Progress Note: A&P Assessment and Plan (1) PAF (paroxysmal atrial fibrillation): Code(s): I48.0 - Paroxysmal atrial fibrillation Status: Acute Assessment and Plan: History of PAF which has been asymptomatic for several years. However her Smart Watch tells her she is in a tachycardia couple times a week, so she may have more PAF than we are aware of. Found to have AFib RVR in the ED despite taking metoprolol 150 mg b.i.d., with no sensation of palpitations, subsequently converted to sinus rhythm on a Cardizem drip. Continue metoprolol 150 mg b.i.d. and Xarelto Discussed w/ Dr. Nichols; will try Multaq to help pt maintain NSR. Gave her a copay card for this. OK for discharge home today from a cardiac standpoint (2) Low blood pressure: Code(s): I95.9 - Hypotension, unspecified Status: Acute Assessment and Plan: Intermittent problems with dizziness and low blood pressure recently. May be unrelated to AFib, at least part of the time Will discontinue lisinopril completely and follow blood pressure as an outpatient. (3) CAD (coronary artery disease): Code(s): I25.10 - Atherosclerotic heart disease of [place] coronary artery without angina pectoris Status: Acute Assessment and Plan: History of CAD an RCA stent Microvascular angina seems improved on isosorbide. (4) Essential hypertension: Code(s): I10 - Essential (primary) hypertension Status: Acute Assessment and Plan: Somewhat labile blood pressure, history of hypertension Subjective Date/time seen: 06/24/21 09:06 cardiology follow-up for atrial fibrillation Feeling better today. Remains in sinus rhythm. No palpitations, chest pain, or worsening shortness of breath. Review of Systems Constitutional: Constitutional: Reports weakness Eyes: Eyes: Reports no additional eye complaints Cardiovascular: Cardiovascular: Reports chest pain (CP/angina has improved since isosorbide started) and Denies dyspnea Respiratory: Respiratory: Denies cough and Denies dyspnea Gastrointestinal: Gastrointestinal: Denies abdominal pain Genitourinary: Genitourinary: Denies hematuria Musculoskeletal: Musculoskeletal: Reports arthralgias Integumentary/Breasts: Skin/Breast: Denies rash Neurologic: Reports system reviewed and no additional complaints, except as documented and Reports weakness Psychiatric: Psychiatric: Reports no additional psychiatric complaints Exam Const: General: comfortable and no acute distress HENMT: General nose exam: no epistaxis Eyes: EOM: EOMs intact bilaterally Neck: Neck: supple and no JVD Thyroid: thyroid normal Carotids: no bruits Lymphatic: lymphadenopathy not noted Resp: Effort & Inspection: normal respiratory effort Auscultation: clear to auscultation bilaterally Cardio: Rate: regular rate Rhythm: regular rhythm Heart sounds: Murmur heart sound present (1/6 EARLE LSB) Skin: General skin exam: normal color and no rashes or lesions noted Neuro: Cognition (Neuro): normal cognition Speech: normal speech Motor exam (neuro): Normal motor muscle tone present throughout Extrem: General: edema (trace) and no pedal edema Other: decreased pedal pusles Psych: Mental Status: mental status grossly normal Affect: normal affect Objective Data Vital Signs Vital Signs: Vital Signs - 24 hr 06/23/21 12:21 06/23/21 12:28 06/23/21 12:30 Temperature 36.9 C Pulse Rate 117 H 125 H 124 H Respiratory Rate 18 Blood Pressure 166/86 H 117/77 118/63 Pulse Oximetry 100 06/23/21 12:31 06/23/21 13:42 06/23/21 13:43 Temperature Pulse Rate 146 H 113 H 129 H Respiratory Rate 21 H Blood Pressure 93/73 L 106/66 107/66 Pulse Oximetry 100 06/23/21 14:21 06/23/21 14:45 06/23/21 15:13 Temperature 36.7 C 36.7 C Pulse Rate 107 H 106 H 106 H Respiratory Rate 18 18 Blood Pressure 133/67 122/58 L 122/58 L Pulse Oximetry 99 99 06/23/21 16:00 06/23/21 18:
--- NOTE | 2021-06-24 09:55 | PM.DS ---
DS: Admitting Diagnosis Discharge Date 06/24/21 0955 Admitting Diagnosis Near-syncope/A fib DS: Discharge Diagnosis Discharge Diagnosis (1) Atrial fibrillation with RVR: Code(s): I48.91 - Unspecified atrial fibrillation Status: Acute Assessment and Plan: She is asymptomatic with her AFib thus it is impossible to say how long or how often she is in this rhythm. At this time she has converted to a normal sinus rhythm and the Cardizem drip will be discontinued. Resume metoprolol. Cardiology has been consulted for further recommendations. (2) Chronic anticoagulation: Code(s): Z79.01 - [place] (current) use of anticoagulants Status: Acute Assessment and Plan: Continue Xarelto for stroke prophylaxis. (3) Near syncope: Code(s): R55 - Syncope and collapse Status: Acute Assessment and Plan: Most likely related to lower blood pressures as detailed above. Initiate fall precautions. (4) Low blood pressure: Code(s): I95.9 - Hypotension, unspecified Status: Acute Assessment and Plan: This seems to have become more of a problem since she was started on isosorbide at the end of April due to ongoing angina. It seems to be helping thus I would consider decreasing or discontinuing 1 of her other antihypertensives. Will defer to Cardiology. (5) Coronary artery disease: Code(s): I25.10 - Atherosclerotic heart disease of [place] coronary artery without angina pectoris Status: Acute Assessment and Plan: Status post stent to the RCA in 2019. Left heart catheterization in December 2020 showed nonobstructing disease. Continue dual antiplatelet therapy, beta-nigel, ranolazine, and isosorbide. (6) Essential hypertension: Code(s): I10 - Essential (primary) hypertension Status: Acute Assessment and Plan: As above blood pressures have been running soft and we are going to the to make adjustments in her medications. Cardiology input is appreciated. (7) Obstructive sleep apnea on CPAP: Code(s): G47.33 - Obstructive sleep apnea (adult) (pediatric); Z99.89 - Dependence on other enabling machines and devices Status: Acute Assessment and Plan: CPAP will be available for the patient to use while hospitalized. (8) Tobacco use disorder: Code(s): F17.200 - Nicotine dependence, unspecified, uncomplicated Status: Acute Assessment and Plan: Smoking cessation is imperative and is encouraged. She declines the need for nicotine patch at this time. (9) Type 2 diabetes mellitus: Code(s): E11.9 - Type 2 diabetes mellitus without complications Status: Acute Assessment and Plan: Initiate sliding scale insulin, Accu-Cheks, and hypoglycemic protocol. Check A1c. DS: Summary Hospital Course Hospital Course: Patient is 61-year-old female with a past medical history of atrial fibrillation, coronary artery disease, type 2 diabetes, COPD, hypertension, hyperlipidemia, congestive heart failure sleep apnea, who came to the emergency room for dizziness. Upon arrival to the ED she was noted to be in AFib RVR. Patient was started on a Cardizem drip. Cardiology was consulted as the patient has been to the office x2 with complaints of hypotension, dizziness, lightheadedness. Patient denies any chest pain or palpitations. However patient does say that she can feel PVCs. Patient stated whenever she does feel like she is going to pass out that is like the lights are dimming and going out. Carotid Dopplers were performed and showed less than 50% stenosis bilateral carotid. Cardiology has seen the patient and has started the patient on Multaq. Patient currently is in sinus rhythm with a rate controlled of 80s to 90s. She did state that the dizziness has get an onset of 4 weeks. Patient stated that it is not like she is standing and gets dizzy it is that she is standing for a while and gets d
--- NOTE | 2021-06-24 10:04 | ECG_ITS ---
Measurements Intervals [place] Rate: 78 P: 9 [place]: 197 QRS: 1 QRSD: 94 T: 31 QT: 413 QTc: 472 Interpretive Statements SINUS RHYTHM COMPARED TO ECG 06/23/2021 12:22:47 SINUS RHYTHM NOW PRESENT Electronically Signed On 06-24-2021 18:56:00 CDT by Anju Lozano M.D.
== END 2021-06-24 13:47 | disposition home or self-care (01) ==
LOC: ANHED 13:47 → ANHIMU 14:57
PROVIDERS: Physician Assistant; Admitting Provider Internal Medicine; Emergency Provider Family Medicine; PCP Family Medicine; Visit Provider Nurse Practitioner
DX: I48.0 Paroxysmal atrial fibrillation (principal); I95.9 Hypotension, unspecified; R55 Syncope and collapse; I25.10 Atherosclerotic heart disease of native coronary artery without angina pectoris; I11.0 Hypertensive heart disease with heart failure; I50.30 Unspecified diastolic (congestive) heart failure; I65.23 Occlusion and stenosis of bilateral carotid arteries; E78.5 Hyperlipidemia, unspecified; E03.9 Hypothyroidism, unspecified; G47.33 Obstructive sleep apnea (adult) (pediatric); E11.9 Type 2 diabetes mellitus without complications; F17.210 Nicotine dependence, cigarettes, uncomplicated; Z79.51 Long term (current) use of inhaled steroids; Z79.01 Long term (current) use of anticoagulants; Z79.02 Long term (current) use of antithrombotics/antiplatelets; Z79.84 Long term (current) use of oral hypoglycemic drugs; Z79.899 Other long term (current) drug therapy; Z95.5 Presence of coronary angioplasty implant and graft
CPT/HCPCS: 36415; 80048; 80053; 82948; 83036; 83735; 84443; 84484; 85025; 93005; 93880; 94640; 96374; 96376; 99285; A9270; G0378; J7030

== ENCOUNTER → 2021-11-08 12:44 | Outpatient (CLI) | payer OTHER, SELFPAY ==
--- NOTE | ~2021-11-08 | CT_ITS ---
EXAMINATION: CT lung screening DATE: 11/08/2021 13:18 INDICATION: lung cancer screening TECHNIQUE: Computed tomography (CT) of the chest was performed without intravenous contrast. Addition al 3D reconstructions utilizing coronal maximum intensity projection (MIP) were performed. Matter dos e [place] The dose-length product was 287.03 mGy-cm. COMPARISON: None FINDINGS: 2 mm nodules at the junction of the left upper lobe and lingula on series 4, image 50 and in the righ t lower lobe on image 59. No other suspicious pulmonary nodules, pneumonia, pulmonary edema or pleura l effusion. Heart size is normal. Atherosclerotic coronary artery calcifications. No pericardial effu norman. Thoracic aorta is normal in caliber. No pathologically enlarged thoracic lymphadenopathy. Faby cystectomy clips the gallbladder fossa. 2.2 cm low-attenuation left adrenal adenoma. Mild to moderate thoracic spondylosis with chronic mild anterior wedging at T6. IMPRESSION: 1. Lung-RADS category 2: Benign appearance or behavior. Continue annual screening with noncontrast lo w-dose chest CT in 12 months. Reviewed, dictated and finalized at location A. IMPRESSION: 1. Lung-RADS category 2: Benign appearance or behavior. Continue annual screeni ng with noncontrast low-dose chest CT in 12 months.
== END ==
PROVIDERS: PCP Family Medicine; Visit Provider Family Medicine
DX: Z12.2 Encounter for screening for malignant neoplasm of respiratory organs (principal); Z87.891 Personal history of nicotine dependence; R10.9 Unspecified abdominal pain
CPT/HCPCS: 71271

== ENCOUNTER 2022-03-08 10:53 | Outpatient (CLI) | payer OTHER, SELFPAY ==
[2022-03-08 12:06] LABS: Influenza A QL RT-PCR Positive (Negative); Influenza B QL RT-PCR Negative (Negative); SARS-CoV-2 RNA PCR Negative
== END 2022-03-08 10:54 | disposition home or self-care (01) ==
LOC: ANHLAB 10:55
PROVIDERS: PCP Family Medicine; Visit Provider Physician Assistant
DX: R50.9 Fever, unspecified (principal); Z20.822 Contact with and (suspected) exposure to COVID-19
CPT/HCPCS: 87636

== ENCOUNTER 2022-03-15 09:45 | Emergency (ER) | payer OTHER, SELFPAY ==
[2022-03-15 09:52] VITALS: BP 152/74; PULSE 85; RESP 20; TEMP 36.8; O2SAT 98
--- NOTE | 2022-03-15 10:46 | ED.URI ---
HPI - URI/Sore Throat General Chief Complaint: Upper Respiratory Infection Stated Complaint: cold flu Time Seen by Provider: 03/15/22 10:57 Source: patient and RN notes reviewed Mode of arrival: ambulatory Limitations: no limitations History of Present Illness HPI Narrative: 61-year-old female with history of COPD, type 2 diabetes, heart failure, coronary artery disease presents with concern for ongoing symptoms after influenza. She reports 1 week history of cough, wheezing, sinus congestion and drainage, fatigue and chills. Reports she was diagnosed with the flu a week ago. Reports she finished Tamiflu without relief of her symptoms. MD elicited complaint: cough Related Data Home Medications Medication Instructions Recorded Confirmed rosuvastatin 20 mg tablet (Crestor) 20 mg PO DAILY 04/04/19 03/11/22 budesonide-formoterol HFA 80 2 puff inhalation Q12H 06/04/19 03/11/22 mcg-4.5 mcg/actuation aerosol inhaler (Symbicort) lisinopril 20 mg tablet 40 mg PO DAILY 06/04/19 03/11/22 nitroglycerin 0.4 mg sublingual 0.4 mg sublingual ONCE PRN Chest 06/04/19 03/11/22 tablet (Nitrostat) Pain furosemide 20 mg tablet (Lasix) 20 mg PO QAM 01/13/21 03/11/22 ranolazine 1,000 mg 2,000 mg PO Q12H 01/13/21 03/11/22 tablet,extended release,12 hr metoprolol tartrate 50 mg tablet 100 mg PO Q12H 02/23/22 03/11/22 (Lopressor) Allergies Allergy/AdvReac Type Severity Reaction Status Date / Time carbamazepine Allergy Unknown Unknown Verified 03/08/22 10:04 Tetanus Vaccines and Toxoid Allergy Unknown Unknown Verified 03/08/22 10:04 tuberculin, purified protein Allergy Unknown Unknown Verified 03/08/22 10:04 deriva TETANUS TOXOID,FLUID Allergy Unknown Unknown Uncoded 03/08/22 10:04 Review of Systems Review of Systems: CONSTITUTIONAL: Reports malaise, chills EYES: Denies visual changes, redness, or discharge. ENT: Reports rhinorrhea, congestion, sinus pain. Denies otalgia and sore throat. CARDIOVASCULAR: Denies chest pain, palpitations, or edema. RESPIRATORY: Reports cough exertional dyspnea. GASTROINTESTINAL: Denies abdominal pain, nausea, vomiting, diarrhea SKIN: Denies rash or itching. MUSCULOSKELETAL: Reports myalgia. NEUROLOGIC: Denies headache. All systems reviewed & are unremarkable except as noted in HPI and below PMFSH Past Medical History Medical History Chest pain Chronic anticoagulation Controlled diabetes mellitus Coronary artery disease Status post right coronary artery stent in 2019. Left heart catheterization in December 2020 showed a patent stent with nonocclusive 30% stenosis of the mid RCA. Diastolic heart failure Essential hypertension Hyperlipemia Hypertension Hypothyroidism Obstructive sleep apnea on CPAP Paroxysmal atrial fibrillation Tobacco use disorder Type 2 diabetes mellitus Surgical History Surgical History History of cholecystectomy History of heart artery stent (2019) Right coronary artery. Status post hysterectomy Status post rotator cuff repair Family History Family History Sibling Patient's sister is in good health Family history of type 2 diabetes mellitus Acute myocardial infarction Sibling Family history of type 2 diabetes mellitus Sibling Family history of type 2 diabetes mellitus Sibling Family history of type 2 diabetes mellitus Sibling Family history of type 2 diabetes mellitus Coronary artery disease involving coronary bypass graft Mother Family history of type 2 diabetes mellitus Acute myocardial infarction Coronary artery disease involving coronary bypass graft Cerebrovascular accident Hypertension Father Liver cancer Lupus Hypertension Social History Social History Social History: Surrogate decision maker: Hola Ortiz, significant
== END 2022-03-15 11:08 | disposition home or self-care (01) ==
PROVIDERS: Emergency Provider Nurse Practitioner; PCP Family Medicine
DX: J32.9 Chronic sinusitis, unspecified (principal); J40 Bronchitis, not specified as acute or chronic; F17.210 Nicotine dependence, cigarettes, uncomplicated; E11.9 Type 2 diabetes mellitus without complications; I25.10 Atherosclerotic heart disease of native coronary artery without angina pectoris; Z95.5 Presence of coronary angioplasty implant and graft; I11.0 Hypertensive heart disease with heart failure; I50.30 Unspecified diastolic (congestive) heart failure; E78.5 Hyperlipidemia, unspecified; E03.9 Hypothyroidism, unspecified; G47.33 Obstructive sleep apnea (adult) (pediatric); I48.0 Paroxysmal atrial fibrillation
CPT/HCPCS: 99213; G0463

== ENCOUNTER 2022-12-26 14:43 | Outpatient (CLI) | payer OTHER, SELFPAY ==
--- NOTE | ~2022-12-26 | MM_ITS ---
EXAMINATION: MM screening елена BI w erika HISTORY: Screening mammogram TECHNIQUE: Craniocaudal and mediolateral oblique 3-D tomosynthesis images were obtained and synthetic 2-D images were generated. CAD analysis was submitted and interpreted. COMPARISON: 10/06/2020 bilateral screening mammogram BREAST PARENCHYMAL COMPOSITION: The breasts are almost entirely fatty. FINDINGS: There is no evidence of suspicious mass, calcification, or architectural distortion to sugg est malignancy in either breast. There has been no suspicious interval change. IMPRESSION: 1. No mammographic evidence of malignancy. 2. Recommend routine screening mammography in one year. BI-RADS Category 1: Negative Reviewed, dictated and finalized at location A.
== END 2022-12-26 14:44 | disposition home or self-care (01) ==
LOC: ANHIMG 14:46
PROVIDERS: PCP Family Medicine; Visit Provider Family Medicine
DX: Z12.31 Encounter for screening mammogram for malignant neoplasm of breast (principal)
CPT/HCPCS: 77063; 77067

== ENCOUNTER 2022-12-29 14:40 | Outpatient (CLI) | payer OTHER, SELFPAY ==
--- NOTE | ~2022-12-29 | CT_ITS ---
EXAMINATION: CT lung screening DATE: 12/29/2022 14:56 INDICATION: Personal history of nicotine dependence TECHNIQUE: Computed tomography (CT) of the chest was performed without intravenous contrast. The dose -length product was 275.60 mGy-cm. Automated exposure control and iterative reconstruction technique were employed. COMPARISON: 11/08/2021 FINDINGS: No significant pleural or pericardial effusion. Heart size normal. There is mild mediastina l lymphadenopathy, likely reactive. There is atherosclerosis of the aorta and coronary arteries. Stab le 2.2 cm left adrenal adenoma. Status post cholecystectomy. Mild emphysema. 2 mm right lower lobe no dule, image 62. There are a few additional bilateral pulmonary nodules measuring 2 mm or less, unchan ged from prior study. No new pulmonary nodules or masses. No endobronchial lesions. No focal airspace disease. No consolidation. No pneumothorax. Moderate thoracic spondylosis. IMPRESSION: 1. Lung-RADS category 2: Benign appearance or behavior. Continue annual screening with noncontrast lo w-dose chest CT in 12 months. Reviewed, dictated and finalized at location A. IMPRESSION: 1. Lung-RADS category 2: Benign appearance or behavior. Continue annual screeni ng with noncontrast low-dose chest CT in 12 months.
== END 2022-12-29 14:41 | disposition home or self-care (01) ==
PROVIDERS: PCP Family Medicine; Visit Provider Family Medicine
DX: Z12.2 Encounter for screening for malignant neoplasm of respiratory organs (principal); Z87.891 Personal history of nicotine dependence
CPT/HCPCS: 71271

== ENCOUNTER 2023-02-11 09:11 | Emergency (ER) | payer OTHER, SELFPAY ==
--- NOTE | ~2023-02-11 | XR_ITS ---
EXAMINATION: XR ribs RT 2V w CXR 2V INDICATION: Right chest pain TECHNIQUE: PA and lateral views of the chest and 3 views of the right ribs were obtained. COMPARISON: 01/21/2021 FINDINGS: The lungs are free of acute opacities. No pleural effusion or pneumothorax. The cardiomedia stinal silhouette is normal. There is moderate thoracic spondylosis. There are possible nondisplaced anterolateral fractures of the right eighth and ninth ribs. Surgical clips in the right upper quadran t are likely from prior cholecystectomy. IMPRESSION: 1. No acute cardiopulmonary abnormality. 2. Possible nondisplaced anterolateral fractures of the right eighth and ninth ribs. Reviewed, dictated and finalized at location A. [employer]
[2023-02-11 09:16] VITALS: BP 191/100; PULSE 72; RESP 16; TEMP 36.3; O2SAT 99
--- NOTE | 2023-02-11 09:16 | ED.GENADULT ---
HPI - General Adult General Chief complaint: Fall Stated complaint: Fall Injury/Right Rib Pain Source: patient and RN notes reviewed History of Present Illness HPI narrative: 62 yo F presents to urgent care with complaints of right sided rib pain. 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 Reports increased pain with deep inhalation, movement, or coughing. Pt denies any head injury, LOC, neck pain, spinal pain, abdominal pain, increased SOB, or vomiting. Pt states she was having some right upper chest pain with movement and palpation but not as much as her rib pain. Pt has not had any medication today. Pt was placed on amoxicillin and prednisone 4 days ago for a COPD exacerbation. Related Data Home Medications Medication Instructions Recorded Confirmed rosuvastatin 20 mg tablet (Crestor) 20 mg PO DAILY 04/04/19 02/11/23 budesonide-formoterol HFA 80 2 puff inhalation Q12H 06/04/19 02/11/23 mcg-4.5 mcg/actuation aerosol inhaler (Symbicort) lisinopril 20 mg tablet 40 mg PO DAILY 06/04/19 02/11/23 nitroglycerin 0.4 mg sublingual 0.4 mg sublingual ONCE PRN Chest 06/04/19 02/11/23 tablet (Nitrostat) Pain furosemide 20 mg tablet (Lasix) 20 mg PO QAM 01/13/21 02/11/23 metoprolol tartrate 50 mg tablet 100 mg PO Q12H 02/23/22 02/11/23 (Lopressor) pantoprazole 40 mg tablet,delayed 40 mg PO QAM 08/04/22 02/11/23 release ranolazine 1,000 mg 1,000 mg PO Q12H 08/04/22 02/11/23 tablet,extended release,12 hr topiramate 50 mg capsule,extended 50 mg PO DAILY 08/04/22 02/11/23 release 24 hr Allergies Allergy/AdvReac Type Severity Reaction Status Date / Time carbamazepine Allergy Unknown Unknown Verified 02/11/23 09:24 Tetanus Vaccines and Toxoid Allergy Unknown Unknown Verified 02/11/23 09:24 tuberculin, purified protein Allergy Unknown Unknown Verified 02/11/23 09:24 deriva TETANUS TOXOID,FLUID Allergy Unknown Unknown Uncoded 02/07/23 16:09 Review of Systems Review of Systems: CONSTITUTIONAL: Denies fever, chills, or sweats. EYES: Denies visual changes, redness, or discharge. ENT: Denies otalgia and sore throat CARDIOVASCULAR: Denies chest pain, palpitations, or edema. RESPIRATORY: Denies cough or dyspnea. GASTROINTESTINAL: Denies abdominal pain, nausea, vomiting, or diarrhea. GENITOURINARY: Denies dysuria or hematuria. SKIN: Denies rash or itching. NEUROLOGIC: Denies headache, numbness, or weakness. Pertinent positives per HPI. [facility] Past Medical History Medical History Chest pain Chronic anticoagulation Controlled diabetes mellitus Coronary artery disease Status post right coronary artery stent in 2019. Left heart catheterization in December 2020 showed a patent stent with nonocclusive 30% stenosis of the mid RCA. Diastolic heart failure Essential hypertension Hyperlipemia Hypertension Hypothyroidism Obstructive sleep apnea on CPAP Paroxysmal atrial fibrillation Tobacco use disorder Type 2 diabetes mellitus Surgical History Surgical History History of cholecystectomy History of heart artery stent (2019) Right coronary artery. S/P ablation of atrial fibrillation Status post hysterectomy Status post rotator cuff repair Family History Family History Sibling Patient's sister is in good health Family history of type 2 diabetes mellitus Acute myocardial infarction Sibling Family history of type 2 diabetes mellitus Sibling Family history of type 2 diabetes mellitus Sibling Family history of type 2 diabetes mellitus Sibling Family history of type 2 diabetes mellitus Coronary artery disease involving coronary bypass graft Mother Family history of type 2 diabetes mellitus Acute myocardial infarction Coronary artery disease involving coronary
== END 2023-02-11 10:07 | disposition home or self-care (01) ==
PROVIDERS: Emergency Provider Nurse Practitioner Family; PCP Family Medicine
DX: S22.41XA Multiple fractures of ribs, right side, initial encounter for closed fracture (principal); E11.9 Type 2 diabetes mellitus without complications; I25.10 Atherosclerotic heart disease of native coronary artery without angina pectoris; I11.0 Hypertensive heart disease with heart failure; I50.30 Unspecified diastolic (congestive) heart failure; E03.9 Hypothyroidism, unspecified; I48.0 Paroxysmal atrial fibrillation; Z79.899 Other long term (current) drug therapy; Z87.891 Personal history of nicotine dependence; W01.0XXA Fall on same level from slipping, tripping and stumbling without subsequent striking against object, initial encounter
CPT/HCPCS: 71046; 71100; 99213; G0463

== ENCOUNTER 2023-02-22 13:55 | Outpatient (CLI) | payer OTHER, SELFPAY ==
--- NOTE | ~2023-02-22 | XR_ITS ---
XR chest 2V 02/22/2023 14:06 Indication: Status post fall. Possible right rib fractures. Procedure: 2 views of the chest Comparison: Comparison to multiple prior studies sequentially, with oldest reviewed study dated 09/06. Findings: Small right pleural effusion. Lingular atelectasis. No focal pneumonia, edema or pneumothor ax. Heart size normal. Impression: 1: Small right pleural effusion. 2: Lingular atelectasis. Reviewed, dictated and finalized at location B. [employer] Impression: 1: Small right pleural effusion. 2: Lingular atelectasis.
== END 2023-02-22 13:56 | disposition home or self-care (01) ==
PROVIDERS: PCP Family Medicine; Visit Provider Physician Assistant Medical
DX: R07.81 Pleurodynia (principal); J90 Pleural effusion, not elsewhere classified; J98.11 Atelectasis
CPT/HCPCS: 71046

== ENCOUNTER 2023-09-04 14:33 | Emergency (ER) | payer BC, SELFPAY ==
--- NOTE | ~2023-09-04 | XR_ITS ---
EXAM: XR facial bones min 3V DATE: 09/04/2023 15:30 HISTORY: fall; pain . COMPARISON: None available. FINDINGS: Decreased mineralization. No fracture or dislocation. No lytic or blastic lesion. Intact, symmetric orbits. Aerated spaces are clear. No abnormal intracranial calcification. No erosion or per iosteal change. Soft tissues within normal limits. IMPRESSION: No acute osseous finding in the facial bones. Reviewed, dictated and finalized at location K.
--- NOTE | ~2023-09-04 | XR_ITS ---
EXAM: XR hand LT min 3V DATE: 09/04/2023 15:29 HISTORY: fall; pain thenar area . COMPARISON: None available. FINDINGS: Decreased mineralization. No fracture or dislocation. No lytic or blastic lesion. Scattere d osteoarthritic changes. No erosion or periosteal change. Soft tissues within normal limits. IMPRESSION: No acute osseous finding in the right hand. Reviewed, dictated and finalized at location K.
[2023-09-04 14:46] VITALS: BP 126/68; PULSE 73; RESP 16; TEMP 36.9; O2SAT 99
--- NOTE | 2023-09-04 15:55 | ED.GENADULT ---
HPI - General Adult General Chief complaint: Extremity Injury, Upper Stated complaint: cheek injury/left thumb injury Time Seen by Provider: 09/04/23 15:42 Source: patient, RN notes reviewed and old records reviewed Mode of arrival: ambulatory Limitations: no limitations History of Present Illness HPI narrative: 63-year-old female to [facility] for complaint left sided facial pain and left hand pain status post unwitnessed fall 3 days ago. Patient states that she was walking from her deck into her garage (same level) when she fell. Patient states she is unsure of what caused her fall. Patient denies syncopal episode. Patient does not believe that she had LOC but is not absolutely certain. Patient denies weakness, dizziness, visual changes, headache, nausea, vomiting, neck pain. Patient endorses use of blood thinners. Patient A&O x3. No acute distress. Related Data Home Medications Medication Instructions Recorded Confirmed rosuvastatin 20 mg tablet (Crestor) 20 mg PO DAILY 04/04/19 07/04/23 budesonide-formoterol HFA 80 2 puff inhalation Q12H 06/04/19 07/04/23 mcg-4.5 mcg/actuation aerosol inhaler (Symbicort) lisinopril 20 mg tablet 40 mg PO DAILY 06/04/19 07/04/23 nitroglycerin 0.4 mg sublingual 0.4 mg sublingual ONCE PRN Chest 06/04/19 07/04/23 tablet (Nitrostat) Pain furosemide 20 mg tablet (Lasix) 20 mg PO QAM 01/13/21 07/04/23 metoprolol tartrate 50 mg tablet 100 mg PO Q12H 02/23/22 07/04/23 (Lopressor) pantoprazole 40 mg tablet,delayed 40 mg PO QAM 08/04/22 07/04/23 release ranolazine 1,000 mg 1,000 mg PO Q12H 08/04/22 07/04/23 tablet,extended release,12 hr topiramate 50 mg capsule,extended 50 mg PO DAILY 08/04/22 07/04/23 release 24 hr Allergies Allergy/AdvReac Type Severity Reaction Status Date / Time carbamazepine Allergy Unknown Unknown Verified 03/07/23 14:09 Tetanus Vaccines and Toxoid Allergy Unknown Unknown Verified 03/07/23 14:09 tuberculin, purified protein Allergy Unknown Unknown Verified 03/07/23 14:09 deriva TETANUS TOXOID,FLUID Allergy Unknown Unknown Uncoded 03/07/23 14:09 Review of Systems Review of Systems: All systems reviewed & are unremarkable except as noted in HPI and below Constitutional: Constitutional: Reports no additional constitutional complaints Eyes: Eyes: Reports as per HPI, Reports eye pain ( Left orbit per patient) and Reports requires corrective lenses ( glasses) ENT: Reports system reviewed and no additional complaints, except as documented Cardiovascular: Cardiovascular: Reports no additional cardiovascular complaints, Denies chest pain and Denies dyspnea Respiratory: Respiratory: Reports no additional respiratory complaints, Denies cough and Denies dyspnea Musculoskeletal: Musculoskeletal: Reports as per HPI and Reports other ( left palmar hand pain at base of thumb) Neurologic: Reports system reviewed and no additional complaints, except as documented Psychiatric: Psychiatric: Reports no additional psychiatric complaints PMFSH Past Medical History Medical History Chest pain Chronic anticoagulation Controlled diabetes mellitus Coronary artery disease Status post right coronary artery stent in 2019. Left heart catheterization in December 2020 showed a patent stent with nonocclusive 30% stenosis of the mid RCA. Diabetes mellitus with diabetic neuropathy, without long-term current use of insulin Diastolic heart failure Essential hypertension Hyperlipemia Hypertension Hypothyroidism Obstructive sleep apnea on CPAP Paroxysmal atrial fibrillation Tobacco use disorder Type 2 diabetes mellitus Surgical History Surgical History History of cholecystectomy History of heart artery stent (2019) Right coronary artery. S/P ablation of atrial fibrillation Status post hysterectomy Status post rotator cuff repair Family Hi
== END 2023-09-04 16:27 | disposition short-term general hospital (02) ==
LOC: EXPBETH 14:37
PROVIDERS: Emergency Provider Nurse Practitioner Family; PCP Family Medicine
DX: S63.602A Unspecified sprain of left thumb, initial encounter (principal); W19.XXXA Unspecified fall, initial encounter; S05.12XA Contusion of eyeball and orbital tissues, left eye, initial encounter; E11.9 Type 2 diabetes mellitus without complications; I25.10 Atherosclerotic heart disease of native coronary artery without angina pectoris; Z95.5 Presence of coronary angioplasty implant and graft; E11.40 Type 2 diabetes mellitus with diabetic neuropathy, unspecified; I11.0 Hypertensive heart disease with heart failure; I50.30 Unspecified diastolic (congestive) heart failure; E78.5 Hyperlipidemia, unspecified; E03.9 Hypothyroidism, unspecified; G47.33 Obstructive sleep apnea (adult) (pediatric)
CPT/HCPCS: 70150; 73130; 99214; G0463

== ENCOUNTER 2023-12-03 11:19 | Emergency (ER) | payer BC, SELFPAY ==
[2023-12-03 11:24] VITALS: PULSE 90; RESP 16; TEMP 37; O2SAT 96
--- NOTE | 2023-12-03 11:40 | ED.URI ---
HPI - URI/Sore Throat General Chief Complaint: Upper Respiratory Infection Stated Complaint: cold,cough,breathing/hearing prob History of Present Illness HPI Narrative: Patient presents with a cough productive at times. Patient states she has had fever and body aches for the past week and has had 3- COVID-19 test at home. Patient denies any shortness of breath no chest pain states she is a smoker and has a history of COPD has been using her inhalers as prescribed at home. Related Data Home Medications Medication Instructions Recorded Confirmed rosuvastatin 20 mg tablet (Crestor) 20 mg PO DAILY 04/04/19 11/13/23 nitroglycerin 0.4 mg sublingual 0.4 mg sublingual ONCE PRN Chest 06/04/19 11/13/23 tablet (Nitrostat) Pain metoprolol tartrate 50 mg tablet 100 mg PO Q12H 02/23/22 11/13/23 (Lopressor) pantoprazole 40 mg tablet,delayed 40 mg PO QAM 08/04/22 11/13/23 release ranolazine 1,000 mg 1,000 mg PO Q12H 08/04/22 11/13/23 tablet,extended release,12 hr Allergies Allergy/AdvReac Type Severity Reaction Status Date / Time carbamazepine Allergy Unknown Unknown Verified 12/03/23 11:43 Tetanus Vaccines and Toxoid Allergy Unknown Unknown Verified 12/03/23 11:43 tuberculin, purified protein Allergy Unknown Unknown Verified 12/03/23 11:43 deriva TETANUS TOXOID,FLUID Allergy Unknown Unknown Uncoded 11/13/23 14:28 Review of Systems Review of Systems: CONSTITUTIONAL: Denies chills, or sweats. Reports fever and generalized body aches EYES: Denies visual changes, redness, or discharge. ENT: Denies otalgia. Reports nasal congestion runny nose and sore throat CARDIOVASCULAR: Denies chest pain, palpitations, or edema. RESPIRATORY: Denies dyspnea. Reports occasional cough GASTROINTESTINAL: Denies abdominal pain, nausea, vomiting, or diarrhea. GENITOURINARY: Denies dysuria or hematuria. SKIN: Denies rash or itching. MUSCULOSKELETAL: Denies back pain, joint pain, or myalgia. Reports generalized body aches NEUROLOGIC: Denies headache, numbness, or weakness. PSYCHIATRIC: Denies anxiety or depression. [facility] Past Medical History Medical History Chest pain Chronic anticoagulation Controlled diabetes mellitus Coronary artery disease Status post right coronary artery stent in 2019. Left heart catheterization in December 2020 showed a patent stent with nonocclusive 30% stenosis of the mid RCA. Diabetes mellitus with diabetic neuropathy, without long-term current use of insulin Diastolic heart failure Essential hypertension Hyperlipemia Hypertension Hypothyroidism Obstructive sleep apnea on CPAP Paroxysmal atrial fibrillation Tobacco use disorder Type 2 diabetes mellitus Vitamin B12 deficiency Surgical History Surgical History History of cholecystectomy History of heart artery stent (2019) Right coronary artery. S/P ablation of atrial fibrillation Status post hysterectomy Status post rotator cuff repair Family History Family History Sibling Patient's sister is in good health Family history of type 2 diabetes mellitus Acute myocardial infarction Sibling Family history of type 2 diabetes mellitus Sibling Family history of type 2 diabetes mellitus Sibling Family history of type 2 diabetes mellitus Sibling Family history of type 2 diabetes mellitus Coronary artery disease involving coronary bypass graft Mother Family history of type 2 diabetes mellitus Acute myocardial infarction Coronary artery disease involving coronary bypass graft Cerebrovascular accident Hypertension Father Liver cancer Lupus Hypertension Social History Social History Social History: Surrogate decision maker: Hola Ortiz, significant other. Code status: Full code. Smoking packs per day: 0.5
[2023-12-03 11:42] VITALS: BP 124/70
[2023-12-03 11:48] VITALS: BP 124/70
== END 2023-12-03 11:52 | disposition home or self-care (01) ==
PROVIDERS: Emergency Provider Nurse Practitioner Family; PCP Family Medicine
DX: J44.1 Chronic obstructive pulmonary disease with (acute) exacerbation (principal); F17.210 Nicotine dependence, cigarettes, uncomplicated; I25.10 Atherosclerotic heart disease of native coronary artery without angina pectoris; E11.40 Type 2 diabetes mellitus with diabetic neuropathy, unspecified; I11.0 Hypertensive heart disease with heart failure; I50.30 Unspecified diastolic (congestive) heart failure; E78.5 Hyperlipidemia, unspecified; G47.33 Obstructive sleep apnea (adult) (pediatric); Z95.5 Presence of coronary angioplasty implant and graft
CPT/HCPCS: 99213; G0463

== ENCOUNTER 2023-12-18 15:23 | Outpatient (CLI) | payer BC, SELFPAY ==
--- NOTE | ~2023-12-18 | XR_ITS ---
EXAMINATION: XR chest 2V Exam Date/Time: 12/18/2023 15:25 CDT HISTORY: R05.9 - Cough, unspecified Comparison: 02/22/2023. RESULT: Lines, tubes, and devices: None. Lungs and pleura: Mild diffuse reticular opacities. Minimal streaky bibasilar opacities. Cardiomediastinal silhouette: Stable. Other: No acute osseous or upper abdominal finding. IMPRESSION: Mild interstitial edema, with minimal subsegmental bibasilar atelectasis/scar. Infection is not exclu ded. Reviewed, dictated and finalized at location K. IMPRESSION: Mild interstitial edema, with minimal subsegmental bibasilar atelectasis/scar. Infection is not excluded.
== END 2023-12-18 15:24 | disposition home or self-care (01) ==
PROVIDERS: PCP Family Medicine; Visit Provider Physician Assistant Medical
DX: R05.9 Cough, unspecified (principal); R91.8 Other nonspecific abnormal finding of lung field
CPT/HCPCS: 71046

== ENCOUNTER 2024-01-01 14:02 | Outpatient (CLI) | payer BC, SELFPAY ==
--- NOTE | ~2024-01-01 | CT_ITS ---
EXAMINATION:CT lung screening DATE: 01/01/2024 14:20 INDICATION: Personal history of nicotine dependence. Smoker who quit 2 years ago with 20 pack year hi story. TECHNIQUE: Computed tomography (CT) of the chest was performed without intravenous contrast. Automate d exposure control and iterative reconstruction technique were employed. The dose-length product (DLP ) was 268.64 mGy-cm. COMPARISON: Chest CT 12/29/2022 FINDINGS: There are 2 mm and 3 mm nodules in right lung upper lobe. There is a 2 mm nodule in right l ower lobe. There is a 2 mm nodule in left upper lobe. No pleural effusion. The heart size is normal. There are coronary artery calcifications. There are calcifications of the aortic valve. No pericardia l effusion. There are changes of cholecystectomy. There is a 2.3 cm mass in left adrenal gland measur ing low attenuation, consistent with an adenoma. There is moderate thoracic spondylosis and severe ce rvical spondylosis. IMPRESSION: 1. Lung-RADS category 2: Benign appearance or behavior. Continue annual screening with noncontrast lo w-dose chest CT in 12 months. Reviewed, dictated and finalized at location A. IMPRESSION: 1. Lung-RADS category 2: Benign appearance or behavior. Continue annual screeni ng with noncontrast low-dose chest CT in 12 months.
== END 2024-01-01 14:03 | disposition home or self-care (01) ==
LOC: ANHIMG 14:04
PROVIDERS: PCP Family Medicine; Visit Provider Family Medicine
DX: Z12.2 Encounter for screening for malignant neoplasm of respiratory organs (principal); Z87.891 Personal history of nicotine dependence
CPT/HCPCS: 71271

== ENCOUNTER 2024-02-26 15:09 | Emergency (ER) | payer BC, SELFPAY ==
[2024-02-26 15:13] VITALS: BP 122/66; PULSE 80; RESP 20; TEMP 36.8; O2SAT 100
[2024-02-26 15:21] VITALS: BP 122/66; PULSE 80; RESP 20; TEMP 36.8; O2SAT 100
--- NOTE | 2024-02-26 15:45 | ED.URI ---
HPI - URI/Sore Throat General Chief Complaint: Upper Respiratory Infection Stated Complaint: sinus head congestion Time Seen by Provider: 02/26/24 15:45 Source: patient Mode of arrival: ambulatory Limitations: no limitations History of Present Illness HPI Narrative: 63-year-old female with history hypertension, COPD, coronary artery disease, diabetes presents today with complaint of cough, sinus congestion, shortness of breath with exertion, fatigue, chills for 3-4 days. Afebrile. Taking over the counter Coricidin to treat symptoms. All systems reviewed and negative except as noted above. Related Data Home Medications Medication Instructions Recorded Confirmed rosuvastatin 20 mg tablet (Crestor) 20 mg PO DAILY 04/04/19 12/18/23 nitroglycerin 0.4 mg sublingual 0.4 mg sublingual ONCE PRN Chest 06/04/19 12/18/23 tablet (Nitrostat) Pain metoprolol tartrate 50 mg tablet 100 mg PO Q12H 02/23/22 12/18/23 (Lopressor) ranolazine 1,000 mg 1,000 mg PO Q12H 08/04/22 12/18/23 tablet,extended release,12 hr dulaglutide 3 mg/0.5 mL 3 mg subcut WEEKLY 12/18/23 12/18/23 subcutaneous pen injector (Trulicity) Lasix 02/26/24 rivaroxaban 20 mg tablet (Xarelto) mg 02/26/24 02/26/24 Allergies Allergy/AdvReac Type Severity Reaction Status Date / Time carbamazepine Allergy Unknown Unknown Verified 12/18/23 14:20 Tetanus Vaccines and Toxoid Allergy Unknown Unknown Verified 12/18/23 14:20 tuberculin, purified protein Allergy Unknown Unknown Verified 12/18/23 14:20 deriva adhesive tape Allergy Unknown Verified 02/26/24 15:19 empagliflozin Allergy Unknown Verified 02/26/24 15:19 [From Jardiance] TETANUS TOXOID,FLUID Allergy Unknown Unknown Uncoded 12/18/23 14:20 Review of Systems Review of Systems: CONSTITUTIONAL: Denies fever, chills, or sweats. reports fatigue. EYES: Denies visual changes, redness, or discharge. ENT: reports rhinorrhea, congestion. Denies sore throat, or otalgia. CARDIOVASCULAR: Denies chest pain, palpitations, or edema. RESPIRATORY: reports cough. Denies dyspnea. GASTROINTESTINAL: Denies abdominal pain, nausea, vomiting, or diarrhea. GENITOURINARY: Denies dysuria or hematuria. SKIN: Denies rash or itching. MUSCULOSKELETAL: Denies back pain, joint pain, or myalgia. NEUROLOGIC: Denies headache, numbness, or weakness. PSYCHIATRIC: Denies anxiety or depression. All other systems reviewed are negative, except as documented in HPI. [facility] Past Medical History Medical History Chest pain Chronic anticoagulation Controlled diabetes mellitus Coronary artery disease Status post right coronary artery stent in 2019. Left heart catheterization in December 2020 showed a patent stent with nonocclusive 30% stenosis of the mid RCA. Diabetes mellitus with diabetic neuropathy, without long-term current use of insulin Diastolic heart failure Essential hypertension Hyperlipemia Hypertension Hypothyroidism Obstructive sleep apnea on CPAP Paroxysmal atrial fibrillation Tobacco use disorder Type 2 diabetes mellitus Vitamin B12 deficiency Surgical History Surgical History History of cholecystectomy History of heart artery stent (2019) Right coronary artery. S/P ablation of atrial fibrillation Status post hysterectomy Status post rotator cuff repair Family History Family History Sibling Patient's sister is in good health Family history of type 2 diabetes mellitus Acute myocardial infarction Sibling Family history of type 2 diabetes mellitus Sibling Family history of type 2 diabetes mellitus Sibling Family history of type 2 diabetes mellitus Sibling Family history of type 2 diabetes mellitus Coronary artery disease involving coronary bypass graft Mother Family history of type 2 diabetes mellitus Acute myocardial infarction Coronary artery disease involving coronary bypass graft Cerebrovascular accident Hypertension Father Liver cancer Lupus Hypertension Social History Social History Social History: Surrogate decision maker: Hola Ortiz, significant other. Code status: Full code. Smoking packs per day: 0.5 Smoking cigarettes per day: 10.0 Years smoked: 40 Smoking pack-years: 20.00 Smoking status: Former smoker Tobacco type: cigarettes Second hand tobacco smoke exposure: No Alcohol intake: former Substance use: never Substance use type: does not use Lack of Transportation: No Lack of Food: Never True Current Housing: I Have Housing Concerned About Future Housing: No Difficulty Paying Gas/Electric Bills: No Difficulty Paying for Meds: No Currently Unemployed: No Education: Decline to Answer Difficulty w/ Childcare or Family Care: No Living arrangements: with family Occupation/Education: occupation Gender identity (if verbalized by the patient): Female Sexual Orientation (if Verbalized by the Patient): Straight or Heterosexual Spiritual care concerns: No Comments At time of signature, agree with nursing past medical, surgical, social and family history. There is no relevant family history pertinent to the presenting complaint. Exam Narrative: GENERAL: This is a well-nourished, well-developed patient, in no apparent distress. HEAD: normocephalic, atraumatic. EYES: PERRL. Sclera clear/white. Vision is grossly intact. EARS: External ears normal, auditory canals clear and without drainage, TMs normal without perforation. Hearing grossly intact. NOSE: External nose normal with Congestion, purulent nasal drainage THROAT: Mucous membranes moist, posterior pharynx clear. NECK: Neck supple, non-tender without lymphadenopathy, masses or thyromegaly. CARDIOVASCULAR: Regular rate and rhythm without murmurs, gallops, or rubs. RESPIRATORY: coarse and wheezy throughout all lung cuellar. Breath sounds equal bilaterally. No wheezes, rales, or rhonchi. SKIN: warm, Dry, intact with no suspicious lesions or rash, good texture and turgor. NEURO: awake, alert, and oriented to person, place and time. There were no obvious focal neurologic abnormalities. EXTREMITIES: No joint tenderness, effusion, or edema noted. Course Course Level of Care: Express Care Visit Vital Signs Vital signs: Vital Signs Temperature 36.8 C 02/26/24 15:13 Pulse Rate 80 02/26/24 15:13 Respiratory Rate 20 02/26/24 15:13 Blood Pressure 122/66 02/26/24 15:13 Pulse Oximetry 100 02/26/24 15:13 Oxygen Delivery Room Air 02/26/24 15:13 Temperature 36.8 C 02/26/24 15:21 Pulse Rate 80 02/26/24 15:21 Respiratory Rate 20 02/26/24 15:21 Blood Pressure 122/66 02/26/24 15:21 Pulse Oximetry 100 02/26/24 15:21 Oxygen Delivery Room Air 02/26/24 15:21 Reviewed MDM - URI/Sore Throat MDM Narrative Medical decision making narrative: will treat patient with antibiotic due to patient's symptoms, exam findings and comorbidities. Patient agrees with plan of care. Nontoxic, no respiratory distress. Patient is aware of diagnosis, understands and agrees to treatment plan. Anticipatory guidance given. Patient agrees to follow-up as directed and is aware of reasons to seek care at the emergency department. Portions of this record may have been created with voice recognition software Differential Diagnosis Differential diagnosis: Likely upper respiratory infection, sinusitis, viral infection and bronchitis Discharge Plan Discharge Clinical Impression: Upper respiratory infection with cough and congestion Patient Disposition: Home, Self-Care Condition: Stable Instructions: Upper Respiratory Infection (ED) Additional Instructions: Take medications as prescribed. Continue using your inhalers as prescribed. Continue taking [id number] Coricidin as directed packaging. Drink at least 64 oz of water a day. Follow-up your primary care physician if symptoms are not improving. Prescriptions: New doxycycline hyclate 100 mg capsule 100 mg PO BID 7 Days Qty: 14 0RF benzonatate 200 mg capsule 200 mg PO TID PRN (Reason: cough) Qty: 20 0RF No Action fluticasone propionate [Flonase Allergy Relief] 50 mcg/actuation spray,suspension 2 spray intranasal BID Qty: 16 0RF Rx Instructions: administer into each nostril Xarelto 20 mg tablet Lasix clopidogrel [Plavix] 75 mg tablet 75 mg PO DAILY Qty: 30 2RF ranolazine 1,000 mg tablet extended release 12 hr 1,000 mg PO Q12H Trulicity 3 mg/0.5 mL pen injector 3 mg subcut WEEKLY budesonide-formoterol [Symbicort] 80-4.5 mcg/actuation HFA aerosol inhaler 2 puff INHALATION Q12H Qty: 10.2 2RF nystatin 100,000 unit/mL suspension 1 ml PO QID Qty: 60 1RF Rx Instructions: swish and swallow isosorbide mononitrate 30 mg tablet extended release 24 hr 30 mg PO DAILY Qty: 30 0RF rosuvastatin [Crestor] 20 mg Tablet 20 mg PO DAILY nitroglycerin [Nitrostat] 0.4 mg Tablet, Sublingual 0.4 mg SUBLINGUAL ONCE PRN (Reason: Chest Pain) metoprolol tartrate [Lopressor] 50 mg tablet 100 mg PO Q12H metformin 500 mg tablet See Rx Instructions .ROUTE .COMPLEX Qty: 180 2RF Dose Instruction: TAKE 1 TABLET BY MOUTH TWICE A DAY Rx Instructions: TAKE 1 TABLET BY MOUTH TWICE A DAY Follow-up/Referrals: Juan Cabral MD [Primary Care Provider] - Stand Alone Forms: Work/School Release IP Time of Disposition: 15:53
== END 2024-02-26 15:57 | disposition home or self-care (01) ==
PROVIDERS: Emergency Provider Nurse Practitioner Family; PCP Family Medicine
DX: J06.9 Acute upper respiratory infection, unspecified (principal); R05.9 Cough, unspecified; Z87.891 Personal history of nicotine dependence; I25.10 Atherosclerotic heart disease of native coronary artery without angina pectoris; I11.0 Hypertensive heart disease with heart failure; I50.30 Unspecified diastolic (congestive) heart failure; E11.42 Type 2 diabetes mellitus with diabetic polyneuropathy; J44.9 Chronic obstructive pulmonary disease, unspecified; E78.5 Hyperlipidemia, unspecified; E03.9 Hypothyroidism, unspecified; I48.0 Paroxysmal atrial fibrillation; G47.33 Obstructive sleep apnea (adult) (pediatric); Z95.5 Presence of coronary angioplasty implant and graft; Z79.01 Long term (current) use of anticoagulants
CPT/HCPCS: 99213; G0463

== ENCOUNTER 2024-08-13 13:17 | Observation (INO) | payer BC, SELFPAY ==
[2024-08-13] VITALS (17 sets, daily range): BP systolic 121–199; BP diastolic 54–107; PULSE 77–90; RESP 11–22; TEMP 36.2–36.8; O2SAT 91–100; BMI 32.7
--- NOTE | ~2024-08-13 | MR_ITS ---
MRI of the brain Clinical History: CVA Technique: Axial and sagittal T1-weighted images were acquired. These were followed by axial T2-weigh william, diffusion weighted, gradient, and FLAIR images. Following intravenous administration of 20 cc Mu ltiHance gadolinium, T1-weighted fat-sat imaging was performed in the axial, sagittal, and coronal pl anes. Findings: There is extensive restricted diffusion involving the right temporal lobe extending into th e right parietal lobe, compatible with acute infarct in the right MCA distribution. No intracranial h emorrhage evident. No mass lesion evident. There is associated FLAIR hyperintensity corresponding to the area of acute infarct. Otherwise, no other significant signal abnormality seen in the remainder o f the brain parenchyma. Ventricles and subarachnoid spaces are unremarkable. No mass effect or midline shift. Orbits are unre markable. Paranasal sinuses and mastoid air cells are clear. Sagittal midline structures are intact. No abnormal postcontrast enhancement identified. IMPRESSION: Large acute infarct involving the right temporal lobe and right parietal lobe. Reviewed, dictated and finalized at location .
--- NOTE | ~2024-08-13 | CT_ITS ---
CTA brain carotid Ordering provider: Crispin Taylor History: . Loss of left lat peripheral vision, h/a, mem loss . Comparison: August 13, 2024 Technique: CT angiogram head and neck was performed following timed intravenous injection of contrast . Thin slice axial images and reformatted coronal images were obtained. Three dimensional reformatted images of the brain were also obtained using a [employer] workstation. Radiation reduction technique uti lized.The dose-length product was 1166.33 mGy-cm. 100 mL Omnipaque 350 was given IV. FINDINGS: HEAD: --ANTERIOR AND MIDDLE CEREBRAL ARTERIES AND BRANCHES: Normal caliber and contour. Possibility of occl usion in the distal branches of the right MCA cannot be excluded. --INTERNAL CAROTID ARTERIES: Mild atheromatous disease with mild to moderate stenosis. No occlusion. --BASILAR ARTERY AND BRANCHES: Normal caliber and contour. No atheromatous disease. --POSTERIOR CEREBRAL ARTERIES: Normal caliber and contour --POSTERIOR COMMUNICATING ARTERIES: Both visualized and continues as the posterior cerebral arteries. --ANEURYSM: None visualized. --BRAIN: Please refer to report of CT head performed the same day. --BONES AND SUPERFICIAL SOFT TISSUES: Please refer to report of CT head performed the same day. --PARANASAL SINUSES AND MASTOIDS: Please refer to report of CT head done the same day. NECK: --RIGHT CERVICAL CAROTID SYSTEM: Mild atheromatous disease of the carotid bulb and proximal internal carotid artery without significant stenosis. Percent stenosis per NASCET criteria is 20% No carotid dissection. Otherwise, no significant atheromatous disease or stenosis of the cervical carotid system . --LEFT CERVICAL CAROTID SYSTEM: Mild atheromatous disease of the carotid bulb and proximal internal c arotid artery without significant stenosis. Percent stenosis per NASCET criteria is 40% No carotid d issection. Otherwise, no significant atheromatous disease or stenosis of the cervical carotid system. --VERTEBRAL ARTERIES: Dominant left vertebral artery. Otherwise, Normal caliber and contour. --VISUALIZED AORTIC ARCH AND BRANCHING VESSELS: Mild atheromatous disease but no significant stenosis . Dependent atelectatic changes in the lungs. --SOFT TISSUES: Normal. --CERVICAL SPINE: Age appropriate degenerative changes. IMPRESSION: 1. CTA head and neck. Percent stenosis per NASCET criteria is 40% on the left and 20% on the right . Stenosis in the intracranial left internal carotid artery of about 50%. 2. Posterior communicating arteries continue to the posterior cerebral arteries. 3. Possibility of occlusion or stenosis in the distal branches of the right middle cerebral artery i n the area of the hypodensity is not excluded. 4. Dominant left vertebral artery. Dr. Crispin Taylor was notified with the result of the patient at 4:48 PM on August 13, 2024. Reviewed, dictated and finalized at location A. IMPRESSION: 1. CTA head and neck. Percent stenosis per NASCET criteria is 40% on the lef t and 20% on the right. Stenosis in the intracranial left internal carotid heydi ry of about 50%. 2. Posterior communicating arteries continue to the posterior cerebral arterie s. 3. Possibility of occlusion or stenosis in the distal branches of the right mi ddle cerebral artery in the area of the hypodensity is not excluded. 4. Dominant left vertebral artery. Dr. Crispin Taylor was notified with the result of the patient at 4:48 PM on August 13, 2024.
--- NOTE | ~2024-08-13 | XR_ITS ---
EXAMINATION: XR chest 1V 08/13/2024 13:56 INDICATION: Dizziness PROCEDURE: AP view of the chest COMPARISON: Comparison to multiple prior studies sequentially, with oldest reviewed study dated 06/2020. FINDINGS: The lungs are clear. The cardiomediastinal silhouette is within normal limits. There are no pleural effusions. There is no pneumothorax suspected. IMPRESSION: 1: NO ACUTE CARDIOPULMONARY DISEASE. Reviewed, dictated and finalized at location A.
--- NOTE | ~2024-08-13 | CT_ITS ---
History: Hypertension with dizziness and headache for more than 24 hours. Of note, patient did sustain head trauma 09/04/2023 and at that time (at an outside institution) had a negative CT examination of the head, by report, although no images are available for comparison. PROCEDURE: CT head without contrast. COMPARISON: No imaging is available for comparison at the time of this dictation. TECHNIQUE: Axial imaging of the head performed from the skull base to the vertex without IV contrast. Sagittal a nd coronal reformations obtained. DLP: 681 mGy-cm FINDINGS: The ventricles are normal in size, shape and position. There is no mass, mass effect or midline shift. There is no abnormal extra-axial fluid collection or intracranial hemorrhage. A well-circumscribed focus of decreased attenuation is identified adjacent to the posterior horn of t he right lateral ventricle measuring 22 x 32 x 25 mm (anterior to posterior x medial to lateral x aircraft air conditioning mechanic nial to caudal dimension). Scattered decreased attenuation also extends to the distribution of the right middle cerebral artery, and extends beyond the goldberg-white matter junction for which acute/subacute cerebral infarction is foley spected. Visualized paranasal sinuses are clear. The mastoid air cells are well aerated. No acute displaced fractures within the overlying cranium. Impression: No acute intracranial hemorrhage or suspicious mass effect. Well-circumscribed focus of decreased attenuation adjacent to the posterior horn of the right lateral ventricle (within the right temporal lobe) in the distribution of the right middle cerebral artery f or which clinical evaluation and follow-up MRI is recommended. These findings were discussed with Dr. Taylor at 1345 on 08/13/2024 Reviewed, dictated and finalized at location A. Impression: No acute intracranial hemorrhage or suspicious mass effect. Well-circumscribed focus of decreased attenuation adjacent to the posterior hor n of the right lateral ventricle (within the right temporal lobe) in the distri bution of the right middle cerebral artery for which clinical evaluation and fo llow-up MRI is recommended. These findings were discussed with Dr. Taylor at 1345 on 08/13/2024
--- OUTSIDE RECORDS SUMMARY | 2024-08-13 13:22 | XMS_ITS | Encounter Summary ---
Author Organization [facility] Address [address] [place] [address] Phone Care Team Providers Care Wet Roaster Name Role Phone Juan Cabral MD Primary Care Provider Encounter Details Date Type Department Care Team (Latest Contact Info) Description 06/23/2021 Orders Only [facility] Scanning, Provider Social History Tobacco Use Types Packs/Day Years Used Date Smoking Tobacco: Former Cigarettes 0.4 42 0 05/19/1979 - 05/18/2021 Smokeless Tobacco: Never Alcohol Use Standard Drinks/Week Comments Never 0 (1 standard drink = 0.6 oz pur e alcohol) AUDIT-C Answer Date Recorded Frequency of Alcohol Consumption Never 03/28/2019 Average Number of Drinks Not on file 020 Frequency of Binge Drinking Not on file 11/2019 Comments Unknown Sex and Gender Information Value Date Recorded Sex Assigned at Not on file 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 Gender Identity Female 08/02/2020 7:06 PM CDT Sexual Orientation Not on file documented as of this encounter Plan of Treatment Not on file documented as of this encounter Procedures Procedure Name Priority Date/Time Associated Diagnosis Comments CARDIOLOGY DOCUMENT SCAN 06/10/2022 3:44 PM CDT documented in this encounter Results * CARDIOLOGY DOCUMENT SCAN (06/10/2022 3:44 PM CDT) Anatomical Region Laterality Modality Other us Provider Scanning [facility] CARDIAC SERVICES PROCEDURES Edited Result - Final documented in this encounter Visit Diagnoses Not on filedocumented in this encounter Care Teams Wet Roaster Relationship Specialty Start Date End Date Juan Cabral MD [address] [facility] [address] [facility] [address] [place] [address] PCP - General Family Medicine 03/28/19 documented as of this encounter
--- OUTSIDE RECORDS SUMMARY | 2024-08-13 13:22 | XMS_ITS | Referral Summary ---
Author Organization [facility] [address] Address [address] [place] [address] Phone Care Team Providers Care President Financial Institution Name Role Phone Juan Cabral MD Primary Care Provider Encounters Date Type Department Care Team Description 08/13/2024 12:45 PM CDT Office Visit [facility] Formerly [facility] Care at [address] [phone] Nova Pryor PA Confusion (Primary Dx); Dizziness; Hypertension, essential; Elevated blood pressure reading 07/30/2024 Results Follow-Up [facility] Cardiology [address] [place] [address] 8th [place] [address] [place] [phone] Mitul Peace MD ECG 12 lead 07/10/2024 Results Follow-Up [facility] Cardiology [address] [place] [address] [place] [phone] Britni Frazier NP MCT Mobile Cardiac Telemetry Event Monitor 06/27/2024 10:30 AM CDT Ancillary Procedure [facility] Cardiology [address] [place] [address] [address] [place] [phone] Dizziness; Bradycardia 06/27/2024 1:45 PM CDT Office Visit [facility]iology [address] [place] [address] Medicine 8th [place] [address] [place] [address] Mitul Peace MD Atrial fibrillation, unspecified type (HCC) (Primary Dx); Paroxysmal atrial fibrillation (CMS/HCC) (HCC); Ventricular premature beats; oysterman current use of anticoagulant therapy 06/24/2024 Telephone [facility] Cardiology [address] [place] [address] [place] [phone] Greg Nichols MD 05/30/2024 1:30 PM CDT Office Visit [place] [address] [place] [phone] Britni Frazier, KATIE 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 (Primary Dx); Hypertension associated with diabetes (HCC); Paroxysmal atrial fibrillation (HCC) 05/24/2024 12:21 PM ZONING ASSISTANT - 05/24/2024 1:51 PM ZONING ASSISTANT Surgery [facility] Cardiac Catheterization Lab [address] [place] [phone] Jesus Owens MD LEFT HEART CATHETERIZATION WITH CORONARY ANGIOGRAPHY AND WITH OR WITHOUT LEFT VENTRICULOGRAM [id number] 05/24/2024 9:29 AM ZONING ASSISTANT - 05/24/2024 4:04 PM ZONING ASSISTANT Hospital Encounter [facility] Cardiac Catheterization Lab [address] [place] [phone] Jesus Owens MD Abnormal nuclear cardiac imaging test; 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 Discharge Disposition: Discharge to home or self care 05/23/2024 Telephone [facility] Cardiology [address] [place] [address] [place] [phone] Jesus Owens MD 05/20/2024 Telephone [facility] Cardiology [address] [place] [address] [place] [phone] Greg Nichols MD from Last 3 Months Allergies Active Allergy Reactions Criticality Noted Date Comments Adhesive Tape-Silicones Other (See comments) Low Skin breakdown Carbamazepine Rash Medium Empagliflozin Rash Medium 09/14/2018 Tetanus Vaccines And Toxoid Other (See comments) Low Cellulitis Tuberculin Ppd Other (See comments) Low 03/16/2018 cellulitis Medications topiramate (TOPAMAX) 50 mg tabletIndications :Migraine Prevention Take 1 tablet (50 mg total) by mouth daily. 30 tablet 5 9 Active albuterol HFA (PROVENTIL HFA,VENTOLIN HFA,PROAIR HFA) 90 mcg/actuation inhaler Inhale 1 puff every 6 (six) hours as needed Active metFORMIN (GLUCOPHAGE) 500 mg tablet Take 1 tablet (500 mg total) by mouth 2 (two) times a day with meals 60 tablet 11 9 Active lisinopriL (PRINIVIL,ZESTRIL ) 40 mg tablet Take 1 tablet (40 mg total) by mouth mower mechanic before breakfast 9 Active dulaglutide (Trulicity) 3 mg/0.5 mL pen injector Inject 0.5 mL (3 mg total) under the skin every 7 days sundays Active diphenhydrAMINE-a cetaminophen (TYLENOL PM) 25-500 mg tablet Take 1 tablet by mouth nightly Active acetaminophen (TYLENOL) 500 mg tablet Take 1 tablet (500 mg total) by mouth every 6 (six) hours as needed for pain Active furosemide (LASIX) 20 mg tabletIndications :PAF (paroxysmal atrial fibrillation) ([facility]),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 Take 1 tablet (20 mg total) by mouth every other day 3 Active HYDROcodone-aceta minophen (NORCO) 5-325 mg per tabletIndications :Pain Take 1 tablet by mouth every 6 (six) hours as needed for pain for up to 10 doses 10 tablet 4 Active tiotropium-olodat Puneet (Stiolto Respimat) 2.5-2.5 mcg/actuation inhaler Inhale 1 puff daily 1 each 11 4 01/01/20 25 Active clopidogreL (PLAVIX) 75 mg tablet Take 1 tablet (75 mg total) by mouth daily 90 tablet 2 4 Active rivaroxaban (Xarelto) 20 mg tabletIndications :Paroxysmal atrial fibrillation (HCC) Take 1 tablet by mouth once daily 90 tablet 1 4 Active metoprolol (LOPRESSOR) 100 mg tabletIndications :Premature ventricular contraction,PAF (paroxysmal atrial fibrillation) ([facility]) Take 1 tablet by mouth twice daily 180 tablet 2 5 Active ranolazine ER (RANEXA) 1,000 mg 12 hr tabletIndications :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 Take 1 tablet (1,000 mg total) by mouth 2 (two) times a day 180 tablet 3 5 Active nitroglycerin (NITROSTAT) 0.4 mg SL tabletIndications :acute episode of anginal pain Place 1 tablet (0.4 mg total) under the tongue every 5 (five) minutes as needed for chest pain May repeat dose q 5 min, up to 3 doses total 50 tablet 5 04/19/19 26 Active isosorbide mononitrate ER (IMDUR) 60 mg 24 hr tabletIndications :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 Take 1 tablet (60 mg total) by mouth daily 90 tablet 3 5 05/31/19 26 Active rosuvastatin (CRESTOR) 20 mg tabletIndications :Hypertension associated with diabetes (HCC),Acceleratin g angina (HCC) Take 1 tablet by mouth once daily 90 tablet 1 5 Active Active Problems Problem Noted Date Diagnosed Date oysterman current use of anticoagulant therapy 0 07/30/2024 Former tobacco use 04/01/2024 Chronic obstructive pulmonary disease, unspecifi ed 01/01/2024 Nonrheumatic aortic valve stenosis 09/01/2023 Atrial fibrillation 08/01/2022 Assessment & Plan (09/06/2022 2:31 PM CDT): Paroxysmal atrial fibrillation s/p PVI cryoablation on 08/01/2022 Multaq was discontinued following ablation No AF recurrence Continue metoprolol Continue Xarelto anticoagulation ([id number] score 4) Encouraged lifestyle modifications including regular physical exercise, weight loss, limiting alcohol intake, BP control and treatment of sleep apnea to reduce AF recurrence Status post cryoablation 08/01/2022 Assessment & Plan (08/01/2022 8:54 PM CDT): Management as above A-fib 05/13/2022 Assessment & Plan (08/01/2022 8:53 PM CDT): Diagnosed in 2019 with increased burden of symptoms. Status post PVI ablation today 08/01. No operative or parekr operative complications. 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 04/18/2019 oysterman current use of antiarrhythmic drug Hypertension associated with diabetes 03/28/2019 Hyperlipidemia associated with type 2 diabetes m ellitus 03/28/2019 Abnormal nuclear cardiac imaging test 03/28/2019 Diastolic heart failure 03/28/2019 Assessment & Plan (08/01/2022 8:56 PM CDT): Chronic diastolic heart failure, well compensated and euvolemic on exam -continue home lasix Head congestion 12/17/2018 Assessment & Plan (12/17/2018 9:16 PM CDT): Patient's head congestion coughing is not relieved very much have no new recommendations are exam shows some mucus in the nasal passage nothing else is per present she does not have any of his findings consistent with sinusitis. Observation supportive care at this time. Cough in adult 02/15/2018 Assessment & Plan (12/17/2018 9:15 PM CDT): Patient complains of coughing bringing up clear sputum sometimes yellow patient has some tightness sensation in chest. He has had these symptoms in the past. She has never found the albuterol HFA or breathing treatments to give any relief of symptoms patient has gotten relief in the past from steroids.. Patient's chest x-ray is negative. Patient is given Z-Lloyd at and prednisone.. Assessment & Plan (02/15/2018 5:22 PM ZONING ASSISTANT): Patient coughing x2 weeks is clear sputum production is a very forceful cough. Rarely has any postnasal drip for the last 7 days. Prior to develop much chest congestion she did have upper respiratory tract symptoms. Chest feels tight. Occasional wheezing. Patient's peak flow was 250 pre and post treatment with albuterol. Chest x-ray was negative. Patient is given Xyzal to try to drive mucus up and Z-Lloyd for bronchitis. Progress report next week. Dizziness 12/26/2017 Assessment & Plan (12/26/2017 5:44 PM CDT): Patient has had mild dizziness for the last 3 days is not severe she does not have to hold on anything balance. She has no nausea no vomiting no headaches no blurred vision. She is not taking anything for dizziness neurological exam is benign recommendation at this time try meclizine [id number] still having disease later in the week probable for the make a referral are do imaging I do not think is indicated at this time. History of atrial fibrillation without current m edication 11/04/2017 Assessment & Plan (09/14/2018 9:55 AM CDT): No evidence of atrial fibrillation today. Assessment & Plan (11/04/2017 12:30 PM CDT): Patient proximal atrial fibrillation September 2016 admitted to [facility]. She had a follow-up cardiology at [facility] Xarelto was recommend as well as diltiazem. Patient is on the the medicines at this time she informs me that follow-up visit with local quality control director discontinue medication because was a brief episode of atrial fibrillation she is asymptomatic. Diastolic dysfunction was noted on echocardiogram at the time she had atrial fibrillation.. Her overall left ventricular function was good. Diabetic polyneuropathy asso ciated with type 2 diabetes mellitus 11/04/2017 Assessment & Plan (08/01/2022 8:55 PM CDT): Home regimen includes metformin and Trulicity -hold home regimen -diabetic diet -SSI, POC glucose QID Assessment & Plan (09/14/2018 9:53 AM CDT): Patient had a yeast infection on Jardiance. She is present on metformin only. She is asymptomatic with respect to diabetes will get a hemoglobin HgbA1c today. FLP in urine for microalbuminuria . Assessment & Plan (04/11/2018 4:37 PM ZONING ASSISTANT): Diabetes is improving with treatment. Continue current treatment regimen. Reminded to bring in blood sugar diary at next visit. Dietary recommendations for ADA diet. Regular aerobic exercise. Discussed ways to avoid symptomatic hypoglycemia. Discussed sick day management. Discussed foot care. Diabetes will be reassessed in 6 months. Diabetes well controlled hemoglobin HgbA1c 6.8. Weight loss of 20 lb in the last 4 months on purpose. Assessment & Plan (12/26/2017 5:43 PM CDT): Two month follow-up visit regarding treatment of her diabetes patient was only able to tolerate metformin at a 1000 mcg daily. She is advised to stay at this dose and not attempt to go up any further. She is tolerating Jardiance 10 mg daily and is covered by her insurance. Patient's home glucometer readings 7 day, 14 and 30 day readings were between 130 and 144. This time no new changes would recheck hemoglobin A1cs 1st or 2nd week of January will see her in February depending on her results Assessment & Plan (11/04/2017 12:36 PM CDT): Patient is a new diabetic. Chief seeing another physician laboratory results returned normal follow-up hemoglobin HgbA1c was 8.5. This is occurred in the last 2 weeks presently on no medication. Symptomatic polyuria and blurred vision. Patient has experienced some numbness in her feet at times. This patient has no acute distress she is working every day in functioning well. Plans referred this patient to family living educator, start on metformin and she is instructed on titration of metformin and reasoning. Patient is also started on Jardiance 10 mg day. She is made aware to fact that this medication may not be covered we may have to substitute with a different medication the same class referring to SGOT 2 class. She is made aware risk of urinary tract symptoms. Patient is advised to get a glucometer for further she get a One-Touch are Accu-Chek glucometer along with getting computer download software from the glucometer [employer]. I will see this patient back in 2 months. Lisinopril 10 mg daily is started. Will consider starting statin at a later date. History of migraine headaches 11/04/2017 Assessment & Plan (08/01/2022 8:57 PM CDT): Continue maintenance therapy with home Topamax Assessment & Plan (09/14/2018 9:54 AM CDT): No significant headaches in the past several months. Assessment & Plan (11/04/2017 12:37 PM CDT): Patient advised me that migraine headaches respond very well to sumatriptan. History of seizures 11/04/2017 Assessment & Plan (11/04/2017 12:37 PM CDT): Patient history of his seizure doing hysterectomy over 20 years ago none since that time. Paroxysmal atrial fibrillation ([facility]) 017 Assessment & Plan (11/04/2017 12:24 PM CDT): Who has a past history of atrial fibrillation Ventricular premature beats 10/05/2016 Assessment & Plan (11/04/2017 12:28 PM CDT): Patient's history of PVCs that preceded her diagnosis of proximal atrial fibrillation a year ago. Patient is asymptomatic. Atypical chest pain 10/05/2016 Assessment & Plan (08/01/2022 8:56 PM CDT): Chronic chest pain symptoms with known RCA disease status post PCI in 2019. Currently without ischemic chest pain symptoms -continue home anti anginal therapies: metoprolol, Imdur, ranolazine -continue Plavix -continue Crestor Assessment & Plan (11/04/2017 12:31 PM CDT): Atypical chest pain evaluated when she had 2 proximal atrial fibrillation no coronary artery disease found. Patient admission [facility] 1998 for atypical chest pain was thought to be GERD. Resolved Problems Problem Noted Date Diagnosed Date Resolved Date Preventative health care 11/04/2017 Palpitations 10/05/2016 11/04/2017 Immunizations Immunization Administration Dates Next Due Moderna SARS-CoV-2 Monovalent Vaccination (12+ Y RS) 03/27/2021 Social History Tobacco Use Types Packs/Day Years Used Date Smoking Tobacco: Former Cigarettes 0.2 44.4 0 03/20/1978 - 05/18/2022 Passive Smoke Exposure: Current Smokeless Tobacco: Never Passive Exposure Comments:Sp ouse smokes 04/01/2024 Alcohol Use Standard Drinks/Week Comments Never 0 (1 standard drink = 0.6 oz pur e alcohol) AUDIT-C Answer Date Recorded Q1: How often do you have a drink containing alc ohol? Never 04/01/2024 Average Number of Drinks Not on file 025 Frequency of Binge Drinking Not on file 03/20 Personal Safety Answer Date Recorded Have you ever been in or are you currently in a harmful physical or emotional relationship or is someone making you feel afraid or unsafe? Denies 05/24/2024 Comments Unknown Sex and Gender Information Value Date Recorded Sex Assigned at Not on file Legal Sex Female 8:01 PM ZONING ASSISTANT Gender Identity Female 08/02/2020 7:06 PM CDT Sexual Orientation Not on file Last Filed Vital Signs Vital Sign Reading Time Taken Comments Blood Pressure 180/102 08/13/2024 12:46 PM CDT Pulse 85 08/13/2024 12:46 PM CDT Temperature 36.8 C (98.3 F) 08/13/2024 12:46 PM CDT Respiratory Rate 20 08/13/2024 12:46 PM CDT Oxygen Saturation 99% 08/13/2024 12:46 PM CDT Inhaled Oxygen Concentration - - Weight 100.2 kg (221 lb) 08/13/2024 12:46 PM CDT Height 172.7 cm (5' 8) 08/13/2024 12:46 PM CDT Body Mass Index 33.6 08/13/2024 12:46 PM CDT Plan of Treatment Not on file Medical Devices Implanted Type Area Human Resources Project Manager Device Identifier Shelf Expiration Date Model / Serial / Lot [employer] Vascade Mvp 6-12fr Venous Closure [id number] - [id number] - [id number] Implanted:Qty : 1 on 08/01/2022 by Mitul Peace MD at [facility] Collagen Right: Femoral Vein [employer] 04/19/2024 800-612C- 10U / [id number] / [id number] [employer] Vascade Mvp 6-12fr Venous Closure [id number] - [id number] - [id number] Implanted:Qty : 1 on 08/01/2022 by Mitul Peace MD at [facility] Collagen Left: Femoral Vein [employer] 04/19/2024 800-612C- 10U / [id number] / [id number] [employer] Vascade Mvp 6-12fr Venous Closure [id number] - [id number] - [id number] Implanted:Qty : 1 on 08/01/2022 by Mitul Peace MD at [facility] Collagen Left: Femoral Vein [employer] 04/19/2024 800-612C- 10U / [id number] [id number] / [id number] Stent Stent Right: Coronary Procedures Procedure Name Priority Date/Time Associated Diagnosis Comments ECG 12-LEAD Routine 06/27/2024 1:34 PM CDT Atrial fibrillation, unspecified type (HCC) MCT - MOBILE CARDIAC TELEMETRY EVENT MONITOR Routine 06/27/2024 10:37 AM CDT Dizziness Bradycardia POCT GLUCOSE DEVICE Routine 05/24/2024 2 :16 PM ZONING ASSISTANT LEFT HEART CATHETERIZATION WITH CORONARY ANGIOGRAPHY AND WITH AND WITHOUT LEFT VENTRICULOGRAM Routine 05/24/2024 1:57 PM ZONING ASSISTANT Abnormal nuclear cardiac imaging test 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 MODERATE SEDATION SAME MD KELLI LEIGH 15 MIN [id number] 05/24/2024 1:01 PM ZONING ASSISTANT Abnormal nuclear cardiac imaging test MODERATE SEDATION 05/24/2024 1:0 1 PM ZONING ASSISTANT Abnormal nuclear cardiac imaging test EGFR STAT 05/24/2024 11:00 AM ZONING ASSISTANT COMPREHENSIVE METABOLIC PANEL STAT 05/24/2024 11:00 AM ZONING ASSISTANT DIFFERENTIAL AUTO Routine 05/24/2024 9:4 8 AM ZONING ASSISTANT CBC WITH AUTO DIFFERENTIAL Routine 05/24/2024 9:48 AM ZONING ASSISTANT POCT GLUCOSE DEVICE Routine 05/24/2024 9 :37 AM ZONING ASSISTANT LIPID PANEL Routine 11/09/2023 2:32 PM CDT HEMOGLOBIN A1C Routine 09/19/2018 9:58 AM CDT ALBUMIN CREATININE RATIO, URINE Routine 09/19/2018 9:58 AM CDT from Last 3 Months or Most Recently Relevant to Health Maintenance Results * ECG 12 lead (06/27/2024 1:34 PM CDT) us Mitul Peace MD ECG ORDERABLES Final R esult * MCT Mobile Cardiac Telemetry Event Monitor (06/27/2024 10:37 AM CDT) Anatomical Region Laterality Modality Electrocardiogra phy Narrative 07/09/2024 5:56 PM CDT AMBULATORY TEST PULLER REPORT Patient Name: Francine Carson Date of : 1960 Requesting Physician: Britni Barlow Date of interpretation: 07/09/24 Type of monitor : Cardiac event monitor Date of the study/Enrollment period: 06/27/2024 through 07/03/2024 Indication: Dizziness and giddiness, bradycardia Quality of the study: Good Interpretation: Monitoring appears from 06/27/2024 through 07/03/2024: Baseline sample showed sinus rhythm with heart rate of 85 beats per minute. There was no atrial fibrillation. Low frequency ventricular ectopy totaling 695 beats which is less 1% ectopic burden. Low-frequency supraventricular ectopy totaling 261 beats which is also less than 1% ectopic burden. Diagnostic time 6 days 7 hours and 59 minutes. No bradycardia was seen during this monitoring period. Heart rate variability between 71 and 121 beats per minute with an average heart rate of 83 beats per minute. No significant pauses, heart block or sustained or nonsustained runs of supraventricular or ventricular tachycardia Twelve patient triggered events with various symptoms including baseline event, tiredness or fatigue, lightheadedness, dizziness, flutter or skipped beat, chest pain or pressure, shortness of breath all of which correlated to sinus rhythm only with heart rates between 76 and 92 beats per minute. Intermittent first-degree AV block seen Conclusions: Unremarkable monitor showing sinus rhythm with average heart rate of 83 beats per minute No complex arrhythmia, heart block or pauses Low-frequency ventricular and supraventricular ectopy Numerous patient triggered events as detailed above correlated sinus rhythm Voice recognition software was used to complete this document, therefore, roof slater variances may occur. Greg Nichols MD, [facility] 07/09/24 Britni Frazier NP CV CARDIAC SERVICES [facility] Final Result * POCT glucose (05/24/2024 2:16 PM ZONING ASSISTANT) Glucose, POC 103 70 - 199 mg/dL Blood 05/24/2024 2:16 PM ZONING ASSISTANT 05/24/2024 2:16 PM ZONING ASSISTANT Jesus Owens MD LAB POCT ORDERABLES - DEVICE Fin al Result Performing Organization Address City/State/ZIP Co fl Phone Number [facility] [phone] Department [place] [address] * LEFT HEART CATHETERIZATION WITH CORONARY ANGIOGRAPHY AND WITH AND WITHOUT LEFT VENTRICULOGRAM (05/24/2024 1:57 PM ZONING ASSISTANT) Anatomical Region Laterality Modality X-Ray Angiograph y Narrative 05/24/2024 2:16 PM ZONING ASSISTANT CARDIAC CATHETERIZATION REPORT Francine Carson IP ENCOUNTER: [id number] Date of Procedure: 05/24/2024 BIRTHDATE: 1960 SUPERVISORY IT SPECIALIST: Jesus Owens MD REFERRING PHYSICIAN: Dr. Nichols PREPROCEDURE DIAGNOSES: Abnormal Stress Test PROCEDURES PERFORMED: Moderate sedation that started at 1329 and ended at 1357 using 2mg of Versed and 200mcg of fentanyl. The registered nurse was Mary Alice Swanson and Julieta Weber. Selective left and right coronary angiogram. Left heart catheterization with measurement of LVEDP and gradient across the aortic valve. FINDINGS: 1. Left main: The left main coronary artery is widely patent without any significant obstructive disease. 2. Left anterior descending: The LAD and the diagonal branches are very tortuous with mild luminal irregularities without any significant obstructive angiographic disease. 3. Left circumflex: The left circumflex artery is a non-dominant vessel and the main marginal branches are very tortuous with diffuse 10-20% stenosis. 4. Right coronary artery: The RCA is a dominant vessel with a lattice of stents in the proximal to mid body. There is 30-40% instent restenosis diffusely throughout the stented segment 5. Left ventricle: A. She was having significant spasm of her radial artery and she is known to have moderate aortic stenosis and given that the pigtail was not able to easily cross the aortic valve, no further attempts were made 6. Opening aortic pressure 142/83 and closing aortic pressure 104/53 ACCESS: Right radial artery COMPLICATIONS: None ESTIMATED BLOOD LOSS: 5 mL PROCEDURAL DESCRIPTION: Informed consent was obtained from patient. Patient was then brought into the assistant laboratory director and was draped and prepped in the usual manner. Moderate sedation was given and the right wrist was subcutaneously injected with 1% lidocaine. The right radial artery was accessed using a 6Fr sheath via a micropuncture needle and modified Seldinger technique. Selective left coronary angiogram was done using a JL3.5 catheter with the tip of the catheter placed in the left main coronary artery. Selective right coronary angiogram was done using JR4 catheter with the tip of the catheter placed in the right coronary artery. A pigtail catheter was unable to cross into the left ventricle. TR was used for closure. CONCLUSIONS Nonobstructive coronary artery disease PLAN Continue aggressive medical therapy us Jesus Owens MD CV CARDIAC CATH PROCEDURES Final Result * (ABNORMAL) eGFR (05/24/2024 11:00 AM ZONING ASSISTANT) [facility] eGFR 57(L) >=60 mL/min/1. 73 m2 Comment: Interpretive Data Reference Interval Normal >/= 90 mL/min/1.73m2 Mildly decreased* 60 - 89 mL/min/1.73m2 Mildly to moderately decreased 45 - 59 mL/min/1.73m2 Moderately to severely decreased 30 - 44 mL/min/1.73m2 Severely decreased 15 - 29 mL/min/1.73m2 Kidney Failure < 15 mL/min/1.73m2 *Relative to young adult level Estimated glomerular filtration rate is determined by the 2020 CKD-EPI equation recommended by the National Kidney Foundation (A Unifying Approach to GFR Estimation: Recommendations of the NKF-ASK Task Force on Reassessing the Inclusion of Race in Diagnosing Kidney Disease, JASN 2020). The CKD-EPI equation should not be used for patients with unstable renal function and has not been validated in children and those over 70. Current interpretive data was last reviewed 2021. Blood 05/24/2024 11:0 0 AM ZONING ASSISTANT 05/24/2024 11:03 AM ZONING ASSISTANT us Jesus Owens MD LAB BLOOD ORDERABLES Final Resul t [facility] [address] Department [place] [address] * (ABNORMAL) Comprehensive metabolic panel (05/24/2024 11:00 AM ZONING ASSISTANT) Sodium 141 135 - 145 mmol/L Potassium, pl 4.9 3.3 - 4.9 mmol/L [facility] Chloride 105 97 - 110 mmol/L [facility] CO2 23 22 - 32 mmol/L [facility] Anion gap 13 2 - 15 mmol/L [facility] BUN 10 6 - 25 mg/dL [facility] Creatinine 1.09 0.60 - 1.10 mg/dL [facility] Glucose 124 70 - 199 mg/dL [facility] Comment: Interpretive Data Fasting glucose >/= 126 mg/dl is diagnostic for diabetes. Fasting is defined as no caloric intake for at least 8 hours. Fasting glucose between 100 mg/dl to 125 mg/dl is diagnostic of prediabetes. In a patient with classic symptoms of hyperglycemia or hyperglycemic crisis, a random glucose >/= 200 mg/dl is diagnostic for diabetes. In the absence of unequivocal hyperglycemia, results should be confirmed by repeat testing. The classification and Diagnosis of Diabetes Diabetes Care 2021; 46: S19-S40. Current interpretive data was last revised 2022. Calcium 8.9 8.5 - 10.3 mg/dL [facility] Bilirubin, total 0.3 0.1 - 1.2 mg/dL [facility] Protein, pl 6.2(L) 6.5 - 8.5 g/dL [facility] Albumin 3.6 3.5 - 5.0 g/dL [facility] Alk phos 74 40 - 130 Units/L [facility] ALT 6(L) 7 - 45 Units/L [facility] AST 12 10 - 45 Units/L [facility] Blood 05/24/2024 11:0 0 AM ZONING ASSISTANT 05/24/2024 11:02 AM ZONING ASSISTANT us Jesus Owens MD LAB BLOOD ORDERABLES Final Resul t [facility] [address] [place] [address] * Differential, auto (05/24/2024 9:48 AM ZONING ASSISTANT) Neutrophil abs 3.2 1.5 - 6.5 K/cumm Imm gran abs 0.0 0.0 - 0.1 K/cumm [facility] Lymphocyte abs 2.2 0.8 - 3.3 K/cumm [facility] Monocyte abs 0.2 0.2 - 0.8 K/cumm [facility] Eosinophil abs 0.2 0.0 - 0.5 K/cumm [facility] Basophil abs 0.0 0.0 - 0.1 K/cumm [facility] Neutrophil pct 54.8 % [facility] Comment: Interpretive Data Percent cell count reference ranges are not reported, since discordance with absolute values may lead to misinterpretation of CBC data. Current Interpretive Data was last revised on 2017. Imm gran pct 0.2 % [facility] Comment: Interpretive Data Percent cell count reference ranges are not reported, since discordance with absolute values may lead to misinterpretation of CBC data. Current Interpretive Data was last revised on 2017. Lymphocyte pct 37.8 % [facility] Comment: Interpretive Data Percent cell count reference ranges are not reported, since discordance with absolute values may lead to misinterpretation of CBC data. Current Interpretive Data was last revised on 2017. Monocyte pct 4.1 % [facility] Comment: Interpretive Data Percent cell count reference ranges are not reported, since discordance with absolute values may lead to misinterpretation of CBC data. Current Interpretive Data was last revised on 2017. Eosinophil pct 2.6 % [facility] Comment: Interpretive Data Percent cell count reference ranges are not reported, since discordance with absolute values may lead to misinterpretation of CBC data. Current Interpretive Data was last revised on 2017. Basophil pct 0.5 % [facility] Comment: Interpretive Data Percent cell count reference ranges are not reported, since discordance with absolute values may lead to misinterpretation of CBC data. Current Interpretive Data was last revised on 2017. Blood 05/24/2024 9:48 AM ZONING ASSISTANT 05/24/2024 9:57 AM ZONING ASSISTANT us Jesus Owens MD LAB BLOOD ORDERABLES Final Resul t [facility] [address] [place] [address] * (ABNORMAL) CBC with auto differential (05/24/2024 9:48 AM ZONING ASSISTANT) WBC 5.8 3.8 - 9.9 K/cumm Hgb 11.9 11.9 - 15.5 g/dL [facility] Hct 36.1 35.6 - 45.5 % [facility] Plt 111(L) 150 - 400 K/cumm [facility] MPV 10.2 9.1 - 12.3 fL [facility] RBC 3.67(L) 3.90 - 5.20 M/cumm [facility] MCV 98.4(H) 81.3 - 96.4 fL [facility] MCH 32.4 27.1 - 33.3 pg [facility] MCHC 33.0 32.3 - 35.7 g/dL [facility] RDW CV 14.7 11.1 - 14.9 % [facility] RDW SD 53.1(H) 35.7 - 48.1 fL [facility] NRBC abs 0.00 0.00 - 0.01 K/cumm [facility] Blood 05/24/2024 9:48 AM ZONING ASSISTANT 05/24/2024 9:57 AM ZONING ASSISTANT Jesus Owens MD LAB BLOOD ORDERABLES Final Resul t Performing Organization Address [facility] de Phone Number [facility] [address] [place] [address] * POCT glucose (05/24/2024 9:37 AM ZONING ASSISTANT) Glucose, POC 132 70 - 199 mg/dL Blood 05/24/2024 9:37 AM ZONING ASSISTANT 05/24/2024 9:37 AM ZONING ASSISTANT Jesus Owens MD LAB POCT ORDERABLES - DEVICE Fin al Result Performing Organization Address [place] de Phone Number [facility] [address] [place] [place] [address] * Lipid panel (11/09/2023 2:32 PM CDT) SCRIBED Cholesterol, Total 117 <200 [facility] SCRIBED HDL 47 >40 [facility] SCRIBED LDL 40 <100 [facility] SCRIBED Triglycerides 187 <150 [facility] Blood Juana Blood MD LAB BLOOD ORDERABLES Edit ed Result - Final Performing Organization Address [facility] de Phone Number [facility] * Albumin Creatinine Ratio, Urine (09/19/2018 9:58 AM CDT) Creatinine, ur 39 20 - 275 mg/dL [facility] [place] Microalbumin, ur <0.2 See Note: mg/dL [facility] [place] Comment: Reference Range: Reference Range Not established Microalbumin/creat ratio NOTE <30 mcg/mg creat [facility] [place] Comment: The microalbumin value is less than 0.2 mg/dL therefore we are unable to calculate excretion and/or creatinine ratio. The ADA defines abnormalities in albumin excretion as follows: Category Result (mcg/mg creatinine) Normal <30 Microalbuminuria 30-299 Clinical albuminuria > OR = 300 The ADA recommends that at least two of three specimens collected within a 3-6 month period be abnormal before considering a patient to be within a diagnostic category. 09/19/2018 9:58 AM CDT 09/19/2018 9:59 AM CDT Narrative [facility] - 09/21/2018 11:53 AM CDT FASTING:YES FASTING: YES Resulting Agency Comment Performing Organization Information: Site ID: [email or web address] Name: [facility] Address: [address] [place] [address] Director: Jacinto Pizano D.O. MPH us Jacinto Palacio MD LAB URINE ORDERABLES Final Result [facility] [place] * (ABNORMAL) Hemoglobin A1c (09/19/2018 9:58 AM CDT) Hgb A1C 6.9(H) <5.7 % of total Hgb [facility] Comment: For someone without known diabetes, a hemoglobin A1c value of 6.5% or greater indicates that they may have diabetes and this should be confirmed with a follow-up test. For someone with known diabetes, a value <7% indicates that their diabetes is well controlled and a value greater than or equal to 7% indicates suboptimal control. A1c targets should be individualized based on duration of diabetes, age, comorbid conditions, and other considerations. Currently, no consensus exists regarding use of hemoglobin A1c for diagnosis of diabetes for children. 09/19/2018 9:58 AM CDT 09/19/2018 9:59 AM CDT Narrative [facility] - 09/21/2018 11:53 AM CDT FASTING:YES FASTING: YES Resulting Agency Comment Performing Organization Information: Site ID: [email or web address] Name: [facility] Address: [address] [place] [address] Director: Jacinto Pizano D.O. MPH us Jacinto Palacio MD LAB BLOOD ORDERABLES Final Result [facility] from Last 3 Months or Most Recently Relevant to Health Maintenance Insurance [facility] CHOICE PLUS [facility] HMO/PPO Address: [address] [address] [place] [address] [place] Advance Directives For more information, please contact: [phone] * Full Code (Latest Code Status on File) Date Activated Date Inactivated Comments 08/01/2022 8:49 PM 08/02/2022 4:13 PM Care Teams President Financial Institution Relationship Specialty Start Date End Date Juan Cabral MD [address] [facility] [address] [place] [address] PCP - General Family Medicine 03/28/19
--- OUTSIDE RECORDS SUMMARY | 2024-08-13 13:22 | XMS_ITS | Encounter Summary ---
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 Gender Identity Female 08/02/2020 7:06 PM CDT Sexual Orientation Not on file documented as of this encounter Plan of Treatment Not on file documented as of this encounter Procedures Procedure Name Priority Date/Time Associated Diagnosis Comments CARDIOLOGY DOCUMENT SCAN 12/31/2020 documented in this encounter Results * CARDIOLOGY DOCUMENT SCAN (12/31/2020) Anatomical Region Laterality Modality Other us Provider Scanning [facility] CARDIAC SERVICES PROCEDURES Edited Result - Final documented in this encounter Visit Diagnoses Not on filedocumented in this encounter Care Teams Air Conditioning Insulation Installer Relationship Specialty Start Date End Date Juan Cabral MD [address] [facility] [address] [facility] [address] [place] [id number] PCP - General Family Medicine 03/28/19 documented as of this encounter
--- OUTSIDE RECORDS SUMMARY | 2024-08-13 13:22 | XMS_ITS | Encounter Summary ---
Author Organization [facility] Address [address] [place] [address] Phone Care Team Providers Care Director Advanced Name Role Phone Juan Cabral MD Primary Care Provider Encounter Details Date Type Department Care Team (Latest Contact Info) Description 06/24/2021 Orders Only [facility] Scanning, Provider [...] on file Legal Sex Female 8:01 PM RN ER Gender Identity Female 08/02/2020 7:06 PM CDT Sexual Orientation Not on file documented as of this encounter Plan of Treatment Not on file documented as of this encounter Procedures Procedure Name Priority Date/Time Associated Diagnosis Comments CARDIOLOGY DOCUMENT SCAN 06/24/2021 documented in this encounter Results * CARDIOLOGY DOCUMENT SCAN (06/24/2021) Anatomical Region Laterality Modality Other us Provider Scanning CV CARDIAC SERVICES PROCEDURES Final Result documented in this encounter Visit Diagnoses Not on filedocumented in this encounter Care Teams Director Advanced Relationship Specialty Start Date End Date Juan Cabral MD [address] [facility] [address] [facility] [address] [place] [address] PCP - General Family Medicine 03/28/19 documented as of this encounter
--- OUTSIDE RECORDS SUMMARY | 2024-08-13 13:22 | XMS_ITS | Encounter Summary ---
Author Organization [facility] Healthcare Address [address] [place] [address] Care Team Providers Care Inspector Firearms Name Role Phone Juan Cabral MD Primary Care Provider Reason for Visit * Reason Comments Dizziness Dizziness, headache and elevated BP started yesterday c/o dizziness is constant and off balance when walking Encounter Details Date Type Department Care Team (Late st Contact Info) Description 08/13/2024 12:45 PM CDT Office Visit [facility] at [address] [address] Nova Pryor PA [address] [place] [address] [address] [place] [address] Confusion (Primary Dx); Dizziness; Hypertension, essential; Elevated blood pressure reading Social History Tobacco Use Types Packs/Day Years [...] on file 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 Gender Identity Female 08/02/2020 7:06 PM CDT Sexual Orientation Not on file documented as of this encounter Last Filed Vital Signs Vital Sign Reading [...] Mass Index 33.6 08/13/2024 12:46 PM CDT documented in this encounter Plan of Treatment Not on file documented as of this encounter Visit Diagnoses Diagnosis Confusion- Primary Unspecified psychosis Dizziness Dizziness and giddiness Hypertension, essential Unspecified essential hypertension Elevated blood pressure reading Elevated blood pressure reading without diagnosis of hypertension documented in this encounter Care Teams Inspector Firearms Relationship Specialty Start Date End Date Juan Cabral MD [address] [facility] [address] [place] [address] PCP - General Family Medicine 03/28/19 documented as of this encounter
--- OUTSIDE RECORDS SUMMARY | 2024-08-13 13:22 | XMS_ITS | Encounter Summary ---
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 Gender Identity Female 08/02/2020 7:06 PM CDT Sexual Orientation Not on file documented as of this encounter Plan of Treatment Not on file documented as of this encounter Procedures Procedure Name Priority Date/Time Associated Diagnosis Comments SLEEP LAB/STUDY - RESULT 02/28/2020 documented in this encounter Results * SLEEP LAB/STUDY - RESULT (02/28/2020) us Provider Scanning Edited Result - Final documented in this encounter Visit Diagnoses Not on filedocumented in this encounter Care Teams Able Seaman Relationship Specialty Start Date End Date Juan Cabral MD [address] [facility] [address] [place] [address] PCP - General Family Medicine 03/28/19 documented as of this encounter
--- OUTSIDE RECORDS SUMMARY | 2024-08-13 13:22 | XMS_ITS | Encounter Summary ---
Author Organization 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 Gender Identity Female 08/02/2020 7:06 PM CDT Sexual Orientation Not on file documented as of this encounter Plan of Treatment Not on file documented as of this encounter Procedures Procedure Name Priority Date/Time Associated Diagnosis Comments CARDIOLOGY DOCUMENT SCAN 04/04/2019 documented in this encounter Results * CARDIOLOGY DOCUMENT SCAN (04/04/2019) Anatomical Region Laterality Modality Other us Provider Scanning CV CARDIAC SERVICES PROCEDURES Edited Result - Final documented in this encounter Visit Diagnoses Not on filedocumented in this encounter Care Teams Yard Goods Salesperson Relationship Specialty Start Date End Date Juan Cabral MD [address] [facility] [address] [place] [address] PCP - General Family Medicine 03/28/19 documented as of this encounter
--- OUTSIDE RECORDS SUMMARY | 2024-08-13 13:22 | XMS_ITS | Encounter Summary ---
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 Gender Identity Female 08/02/2020 7:06 PM CDT Sexual Orientation Not on file documented as of this encounter Plan of Treatment Not on file documented as of this encounter Procedures Procedure Name Priority Date/Time Associated Diagnosis Comments SCAN - RADIOLOGY/IMAGING 01/21/2021 documented in this encounter Results * SCAN - RADIOLOGY/IMAGING (01/21/2021) Anatomical Region Laterality Modality Other us Provider Scanning Final Result documented in this encounter Visit Diagnoses Not on filedocumented in this encounter Care Teams Vallez Filter Operator Relationship Specialty Start Date End Date Juan Cabral MD [address] [facility] [address] [place] [id number] PCP - General Family Medicine 03/28/19 documented as of this encounter
--- OUTSIDE RECORDS SUMMARY | 2024-08-13 13:22 | XMS_ITS | Clinical Summary ---
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 Take 1 [...] tabletIndications :Premature ventricular contraction,PAF (paroxysmal atrial fibrillation) ([facility]) Take 1 tablet by mouth twice daily 180 tablet 2 5 Active ranolazine ER (RANEXA) 1,000 mg 12 hr tabletIndications :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 Take 1 [...] 24 hr tabletIndications :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 Take 1 tablet (60 mg total) by mouth daily 90 tablet 3 5 05/31/19 26 Active rosuvastatin (CRESTOR) 20 mg tabletIndications :Hypertension associated with diabetes (HCC),Acceleratin g angina (HCC) Take 1 tablet by mouth once daily 90 tablet 1 5 Active Active Problems Problem Noted Date Diagnosed Date jail current use of anticoagulant therapy 0 07/30/2024 Former tobacco use 04/01/2024 Chronic obstructive pulmonary disease, unspecifi ed 01/01/2024 Nonrheumatic aortic valve stenosis 09/01/2023 Atrial fibrillation 08/01/2022 Assessment & Plan (09/06/2022 2:31 PM CDT): Paroxysmal atrial fibrillation s/p PVI cryoablation on 08/01/2022 Multaq was discontinued following ablation No AF recurrence Continue metoprolol Continue Xarelto anticoagulation ([id number] score 4) Encouraged lifestyle modifications including regular [...] PVI ablation today 08/01. No operative or parker operative complications. 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 Assessment & Plan (02/15/2018 5:22 PM ADDRESSING MACHINE OPERATOR): Patient coughing x2 weeks is clear sputum [...] benign recommendation at this time try meclizine [id number] still having disease later in the week probable for the make a referral are do imaging I do not think is indicated at this time. History of atrial fibrillation without current m edication 11/04/2017 Assessment & Plan (09/14/2018 9:55 AM CDT): No evidence of atrial fibrillation today. Assessment & Plan (11/04/2017 12:30 PM CDT): Patient proximal atrial fibrillation September 2016 admitted to [facility]. She had a follow-up cardiology at [facility] Xarelto was recommend as well as diltiazem. Patient is on the the medicines at this time she informs me that follow-up visit with local loader operator/ground leader discontinue medication because was a brief episode [...] . Assessment & Plan (04/11/2018 4:37 PM ADDRESSING MACHINE OPERATOR): Diabetes is improving with treatment. Continue current [...] functioning well. Plans referred this patient to assistant customer service manager, start on metformin and she is instructed [...] getting computer download software from the glucometer company. I will see this patient back in [...] none since that time. Paroxysmal atrial fibrillation (CMS/HCC) 017 Assessment & Plan (11/04/2017 12:24 PM [...] no coronary artery disease found. Patient admission [facility] 1998 for atypical chest pain was thought to be GERD. Resolved Problems Problem Noted Date Diagnosed Date Resolved Date Preventative health care 11/04/2017 Palpitations 10/05/2016 11/04/2017 Encounters Date Type Department Care Team Description 08/13/2024 12:45 PM CDT Office Visit [facility] Care at [address] [phone] Nova Pryor PA Confusion (Primary Dx); Dizziness; Hypertension, essential; Elevated blood pressure reading 07/30/2024 Results Follow-Up [facility] Cardiology [address] [facility] [facility] 8th [place] [address] [place] [phone] Mitul Peace MD ECG 12 lead 07/10/2024 Results Follow-Up [facility] Cardiology [address] [place] [address] Britni Frazier NP MCT Mobile Cardiac Telemetry Event Monitor 06/27/2024 1:45 PM CDT Office Visit [facility] Cardiology [address] [facility] [facility] [address] 8th [place] [address] [place] [phone] Mitul Peace MD Atrial fibrillation, unspecified type (HCC) (Primary Dx); Paroxysmal atrial fibrillation (CMS/HCC) (HCC); Ventricular premature beats; jail current use of anticoagulant therapy 06/27/2024 10:30 AM CDT Ancillary Procedure [facility] Cardiology [address] [place] [address] [place] [phone] Dizziness; Bradycardia 06/24/2024 Telephone [place] [address] [place] [phone] Greg Nichols MD 05/30/2024 1:30 PM CDT Office Visit [facility] Cardiology [address] [place] [address] [place] [phone] Britni Frazier NP 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 (Primary Dx); Hypertension associated with diabetes (HCC); Paroxysmal atrial fibrillation (HCC) 05/24/2024 12:21 PM ADDRESSING MACHINE OPERATOR - 05/24/2024 1:51 PM [facility] Surgery [facility] Cardiac Catheterization Lab [address] [place] [id number] Jesus Owens MD LEFT HEART CATHETERIZATION WITH CORONARY ANGIOGRAPHY AND WITH OR WITHOUT LEFT VENTRICULOGRAM [id number] 05/24/2024 9:29 AM ADDRESSING MACHINE OPERATOR - 05/24/2024 4:04 PM [facility] Hospital Encounter [facility] Cardiac [facility]atheter[facility] [address] [place] [address] Jesus Owens MD Abnormal nuclear cardiac imaging test; 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 Discharge Disposition: Discharge to home or self care 05/23/2024 Telephone [facility] Cardiology [address] [place] [address] [place] [phone] Jesus Owens MD 05/20/2024 Telephone [facility] Cardiology [address] [place] [address] [place] [phone] Greg Nichols MD from Last 3 Months Immunizations Immunization Administration Dates Next Due Moderna SARS-CoV-2 Monovalent Vaccination (12+ Y RS) 03/27/2021 Surgical History Surgery Date Site/Laterality Comments ROTATOR CUFF REPAIR Left CHOLECYSTECTOMY HYSTERECTOMY CARDIAC CATHETERIZATION 05/24/2024 N/A Procedure: LEFT HEART CATHETERIZATION WITH CORONARY ANGIOGRAPHY AND WITH OR WITHOUT LEFT VENTRICULOGRAM [id number]; Surgeon: Jesus Owens MD; Location: CARDIAC OIL PIT ATTENDANT; Service: Cardiovascular; Laterality: N/A; ANGIOPLASTY Medical History Medical History Date Comments Atrial fibrillation (HCC) Diabetes (HCC) Hypertension Chest pain HLD (hyperlipidemia) Diastolic heart failure (HCC) Right carotid bruit Sleep apnea Peripheral neuropathy Heart disease 04/04/2019 Lung disease CHF (congestive heart failure) (HCC) Type 2 diabetes mellitus (HCC) Chronic kidney disease Seizures (HCC) no seizures sinc e age 32, stopped post hysterectomy Headache Abnormal nuclear cardiac imaging test 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 Chronic bronchitis (HCC) Family History Medical History Relation Name Comments Coronary artery disease Brother 1 Fami ly history of coronary artery disease - (Added by TW Conv) Diabetes Brother 1 Kidney disease Brother 1 Liver cancer Brother 2 Diabetes Brother 3 Thomas Hypertension Brother 3 Thomas Diabetes Brother 4 Art Kidney cancer Brother 4 Art Kidney disease Brother 4 Art Diabetes Brother 5 Heart attack Brother 5 Heart attack Brother 6 Humberto Cancer Father Brother Liver cancer Father Brother Coronary artery disease Mother Ne Fami ly history of coronary artery disease - (Added by TW Conv) Heart attack Mother Ne Arthritis Other Gout Other Osteoporosis Other Breast cancer Sister Heart attack Sister Anesthesia problems Neg Hx Malig Hypertension Neg Hx Malig Hyperthermia Neg Hx Pseudochol deficiency Neg Hx Relation Name Status Comments Brother 1 Alive Brother 2 Brother 3 Thomas Alive Brother 4 Art Alive Brother 5 (Age 40) Brother 6 Humberto Father Brother (Age 72) Mother Ne (Age 59) Other Sister Social History Tobacco Use Types Packs/Day Years [...] on file Legal Sex Female 8:01 PM ADDRESSING MACHINE OPERATOR Gender Identity Female 08/02/2020 7:06 PM CDT Sexual Orientation Not on file Obstetrics History Last Filed Vital Signs Vital Sign Reading [...] 08/13/2024 12:46 PM CDT Plan of Treatment Health Maintenance Due Date Last Done Comments Breast Cancer Screening-Mammogram 1960 Colon Cancer Screening-Colonoscopy 1960 Hepatitis C Screening 1960 Dilated Eye Exam 1960 DTaP/Tdap/Td Vaccine (1 - Tdap) 1971 Hepatitis B Screening 1978 Pneumococcal vaccine <65 (1 of 2 - PCV) 1979 Zoster Vaccine (2 of 3) 03/29/2016 02/02/2016 Depression Screening 11/03/2018 11/03/2017 Foot Exam 11/03/2018 11/03/2017 Regular Well Visit/Exam 18-64 11/03/2018 11/03/2017 Hemoglobin A1C 03/22/2019 09/19/2018, 02/09/2018 Albumin Creatinine Ratio, Urine 09/20/2019 9 Covid-19 Vaccine (2 - 2023-2 5 season) 2023 03/27/2021 Lipid Panel 11/08/2024 11/09/2023, 08/18, 09/08/2022, Additional history exists eGFR 05/24/2025 05/24/2024, 07/18, 07/29/2022, Additional history exists Influenza Vaccine Completed 01/05/2024, , 12/30/2021, Additional history exists Medical Devices Implanted Type Area Assistant Produce Manager Device Identifier Shelf Expiration Date Model / Serial / Lot [employer] Vascade Mvp 6-12fr Venous Closure [id number] - [id number] - [id number] Implanted:Qty : 1 on 08/01/2022 by Mitul Peace MD at [facility] Collagen Right: Femoral Vein [employer] 04/19/2024 800-612C- [id number] / [id number] / [id number] [employer] Vascade Mvp 6-12fr Venous Closure [id number] - [id number] - [id number] Implanted:Qty : 1 on 08/01/2022 by Mitul Peace MD at [facility] Coll[employer] Left: Femoral Vein [employer] 04/19/2024 800-612C- 10U / [id number] / [id number] [employer] Vascade Mvp 6-12fr Venous Closure [id number] - [id number] - [id number] Implanted:Qty : 1 on 08/01/2022 by Mitul Peace MD at [facility] Collagen Left: Femoral Vein [employer] 04/19/2024 800-612C- [id number] / [id number] / [id number] Stent Stent Right: Coronary Procedures Procedure Name Priority Date/Time Associated Diagnosis Comments ECG 12-LEAD Routine 06/27/2024 1:34 PM CDT Atrial fibrillation, unspecified type (HCC) MCT - MOBILE CARDIAC TELEMETRY EVENT MONITOR Routine 06/27/2024 10:37 AM CDT Dizziness Bradycardia POCT GLUCOSE DEVICE Routine 05/24/2024 2 :16 PM ADDRESSING MACHINE OPERATOR LEFT HEART CATHETERIZATION WITH CORONARY ANGIOGRAPHY AND WITH AND WITHOUT LEFT VENTRICULOGRAM Routine 05/24/2024 1:57 PM ADDRESSING MACHINE OPERATOR Abnormal nuclear cardiac imaging test 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 MODERATE SEDATION SAME MD PEREIRA ADDDylan 15 MIN 17311 05/24/2024 1:01 PM ADDRESSING MACHINE OPERATOR Abnormal nuclear cardiac imaging test MODERATE SEDATION 05/24/2024 1:0 1 PM ADDRESSING MACHINE OPERATOR Abnormal nuclear cardiac imaging test EGFR STAT 05/24/2024 11:00 AM ADDRESSING MACHINE OPERATOR COMPREHENSIVE METABOLIC PANEL STAT 05/24/2024 11:00 AM ADDRESSING MACHINE OPERATOR DIFFERENTIAL AUTO Routine 05/24/2024 9:4 8 AM ADDRESSING MACHINE OPERATOR CBC WITH AUTO DIFFERENTIAL Routine 05/24/2024 9:48 AM ADDRESSING MACHINE OPERATOR POCT GLUCOSE DEVICE Routine 05/24/2024 9 :37 AM ADDRESSING MACHINE OPERATOR LIPID PANEL Routine 11/09/2023 2:32 PM CDT [...] phy Narrative 07/09/2024 5:56 PM CDT AMBULATORY INSPECTOR PLUMBING REPORT Patient Name: Francine Carson Date of [...] was used to complete this document, therefore, induction machine setter variances may occur. Greg Nichols MD, [facility] 07/09/24 us Britni Frazier NP CV CARDIAC SERVICES [facility] Final Result * POCT glucose (05/24/2024 2:16 PM ADDRESSING MACHINE OPERATOR) Glucose, POC 103 70 - 199 mg/dL Blood 05/24/2024 2:16 PM ADDRESSING MACHINE OPERATOR 05/24/2024 2:16 PM ADDRESSING MACHINE OPERATOR us Jesus Owens MD LAB POCT ORDERABLES - DEVICE Fin al Result [facility] [address] [place] [address] * LEFT HEART CATHETERIZATION WITH CORONARY ANGIOGRAPHY AND WITH AND WITHOUT LEFT VENTRICULOGRAM (05/24/2024 1:57 PM ADDRESSING MACHINE OPERATOR) Anatomical Region Laterality Modality X-Ray Angiograph y Narrative 05/24/2024 2:16 PM ADDRESSING MACHINE OPERATOR CARDIAC CATHETERIZATION REPORT Francine Carson IP ENCOUNTER: [id number] Date of Procedure: 05/24/2024 BIRTHDATE: 1960 FOOD ANALYST: Jesus Owens MD REFERRING PHYSICIAN: Dr. Nichols [...] patient. Patient was then brought into the laborer yard and was draped and prepped in the [...] Result * (ABNORMAL) eGFR (05/24/2024 11:00 AM ADDRESSING MACHINE OPERATOR) Pathologist [facility] eGFR 57(L) >=60 mL/min/1. 73 m2 Comment: [...] of Race in Diagnosing Kidney Disease, JASN 202). The CKD-EPI equation should not be used for patients with unstable renal function and has not been validated in children and those over 70. Current interpretive data was last reviewed 2021. Blood 05/24/2024 11:0 0 AM ADDRESSING MACHINE OPERATOR 05/24/2024 11:03 AM ADDRESSING MACHINE OPERATOR us Jesus Owens MD LAB BLOOD ORDERABLES Final Resul t [facility] [address] Department [place] [address] * (ABNORMAL) Comprehensive metabolic panel (05/24/2024 11:00 AM ADDRESSING MACHINE OPERATOR) Pathologist [facility] Sodium 141 135 - 145 mmol/L Potassium, pl 4.9 3.3 - 4.9 mmol/L [facility] Chloride 105 97 - 110 mmol/L [facility] CO2 23 22 - 32 mmol/L [facility] Anion gap 13 2 - 15 mmol/L [facility] BUN 10 6 - 25 mg/dL [facility] Creatinine 1.09 0.60 - 1.10 mg/dL [facility] Glucose 124 70 - 199 mg/dL [facility] Comment: Interpretive Data Fasting glucose >/= 126 [...] classification and Diagnosis of Diabetes Diabetes Care 202; 46: S19-S40. Current interpretive data was last [...] [facility] Blood 05/24/2024 11:0 0 AM ADDRESSING MACHINE OPERATOR 05/24/2024 11:02 AM ADDRESSING MACHINE OPERATOR us Jesus Owens MD LAB BLOOD ORDERABLES Final Resul t [facility] [address] Department [place] [address] * Differential, auto (05/24/2024 9:48 AM ADDRESSING MACHINE OPERATOR) Neutrophil abs 3.2 1.5 - 6.5 K/cumm Imm gran abs 0.0 0.0 - 0.1 K/cumm [facility] Lymphocyte abs 2.2 0.8 - 3.3 K/cumm [facility] Monocyte abs 0.2 0.2 - 0.8 K/cumm [facility] Eosinophil abs 0.2 0.0 - 0.5 K/cumm [facility] Basophil abs 0.0 0.0 - 0.1 K/cumm [facility] Neutrophil pct 54.8 % [facility] Comment: Interpretive Data Percent cell count reference ranges are not reported, since discordance with absolute values may lead to misinterpretation of CBC data. Current Interpretive Data was last revised on 2017. Imm gran pct 0.2 % [facility] Comment: Interpretive Data Percent cell count reference ranges are not reported, since discordance with absolute values may lead to misinterpretation of CBC data. Current Interpretive Data was last revised on 2017. Lymphocyte pct 37.8 % [facility] Comment: Interpretive Data Percent cell count reference ranges are not reported, since discordance with absolute values may lead to misinterpretation of CBC data. Current Interpretive Data was last revised on 2017. Monocyte pct 4.1 % [facility] Comment: Interpretive Data Percent cell count reference ranges are not reported, since discordance with absolute values may lead to misinterpretation of CBC data. Current Interpretive Data was last revised on 2017. Eosinophil pct 2.6 % [facility] Comment: Interpretive Data Percent cell count reference ranges are not reported, since discordance with absolute values may lead to misinterpretation of CBC data. Current Interpretive Data was last revised on 2017. Basophil pct 0.5 % [facility] Comment: Interpretive Data Percent cell count reference ranges are not reported, since discordance with absolute values may lead to misinterpretation of CBC data. Current Interpretive Data was last revised on 2017. Blood 05/24/2024 9:48 AM ADDRESSING MACHINE OPERATOR 05/24/2024 9:57 AM ADDRESSING MACHINE OPERATOR us Jesus Owens MD LAB BLOOD ORDERABLES Final Resul t [facility] [address] Department [place] [address] * (ABNORMAL) CBC with auto differential (05/24/2024 9:48 AM ADDRESSING MACHINE OPERATOR) WBC 5.8 3.8 - 9.9 K/cumm Hgb 11.9 11.9 - 15.5 g/dL [facility] Hct 36.1 35.6 - 45.5 % [facility] Plt 111(L) 150 - 400 K/cumm [facility] MPV 10.2 9.1 - 12.3 fL [facility] RBC 3.67(L) 3.90 - 5.20 M/cumm [facility] MCV 98.4(H) 81.3 - 96.4 fL [facility] MCH 32.4 27.1 - 33.3 pg [facility] MCHC 33.0 32.3 - 35.7 g/dL [facility] RDW CV 14.7 11.1 - 14.9 % [facility] RDW SD 53.1(H) 35.7 - 48.1 fL [facility] NRBC abs 0.00 0.00 - 0.01 K/cumm [facility] Blood 05/24/2024 9:48 AM ADDRESSING MACHINE OPERATOR 05/24/2024 9:57 AM ADDRESSING MACHINE OPERATOR Jesus Owens MD LAB BLOOD ORDERABLES Final Resul t [facility] [address] Department [place] [address] * POCT glucose (05/24/2024 9:37 AM ADDRESSING MACHINE OPERATOR) Pathologist [facility] Glucose, POC 132 70 - 199 mg/dL Blood 05/24/2024 9:37 AM ADDRESSING MACHINE OPERATOR 05/24/2024 9:37 AM ADDRESSING MACHINE OPERATOR Jesus Owens MD LAB POCT ORDERABLES - DEVICE Fin al Result [facility] [address] Department [place] [address] * Lipid panel (11/09/2023 2:32 PM CDT) Pathologist [facility] SCRIBED Cholesterol, Total 117 <200 [facility] SCRIBED HDL 47 >40 [facility] SCRIBED LDL 40 <100 [facility] SCRIBED Triglycerides 187 <150 [facility] Blood Historical Provider LAB BLOOD ORDERABLES Edit ed Result - Final Performing Organization Address [facility]/ZIP Co de Phone Number [facility] * Albumin Creatinine Ratio, Urine (09/19/2018 9:58 AM CDT) Creatinine, ur 39 20 - 275 mg/dL [facility] [place] Microalbumin, ur <0.2 See Note: mg/dL [facility] [place] Comment: Reference Range: Reference Range Not established Microalbumin/creat ratio NOTE <30 mcg/mg creat [facility] [place] Comment: The microalbumin value [...] Agency Comment Performing Organization Information: Site ID: [place] Name: [facility] Address: [id number] [place] [address] [place] [address] Director: Jacinto Pizano D.O., MPH Jacinto Palacio MD LAB URINE ORDERABLES Final Result Performing Organization Address [facility]/ZIP Co de Phone Number JENIFER [facility] [place], [place] * (ABNORMAL) Hemoglobin A1c (09/19/2018 9:58 AM CDT) Hgb A1C 6.9(H) <5.7 % of total Hgb [facility] [place] Comment: For someone without known diabetes, a [...] Agency Comment Performing Organization Information: Site ID: [place] Name: [facility] Address: [address] [address] Director: Jacinto Pizano D.O., MPH Jacinto Palacio MD LAB BLOOD ORDERABLES Final Result [facility] [place] from Last 3 Months or Most Recently Relevant to Health Maintenance Insurance [facility] [place] [address] [facility] Advance Directives For more information, please contact: [phone] * Full Code (Latest Code Status on File) Date Activated Date Inactivated Comments 08/01/2022 8:49 PM 08/02/2022 4:13 PM Care Teams Hose Inspector And Patcher Relationship Specialty Start Date End Date Juan Cabral MD [address] [address] PCP - General Family Medicine 03/28/19
--- OUTSIDE RECORDS SUMMARY | 2024-08-13 13:22 | XMS_ITS | Encounter Summary ---
Author Organization [facility] Address [address] [place] [address] Phone Care Team Providers Care Paper Cone Grader Name Role Phone Juan Cabral MD Primary Care Provider Encounter Details Date Type Department Care Team (Late st Contact Info) Description 07/30/2024 Results Follow-Up [facility] Cardiology [address] [facility] Advanced Medicine 8th [place] [address] [place] [phone] Mitul Peace MD [address] [facility] [address] [place] [address] ECG 12 lead Social History Tobacco Use Types Packs/Day Years [...] on file Legal Sex Female 8:01 PM SENIOR BUSINESS INTELLIGENCE ANALYST Gender Identity Female 08/02/2020 7:06 PM CDT Sexual Orientation Not on file documented as of this encounter Plan of Treatment Not on file documented as of this encounter Visit Diagnoses Not on filedocumented in this encounter Care Teams Paper Cone Grader Relationship Specialty Start Date End Date Juan Cabral MD [address] [facility] [address] [place] [id number] PCP - General Family Medicine 03/28/19 documented as of this encounter
--- OUTSIDE RECORDS SUMMARY | 2024-08-13 13:22 | XMS_ITS | CONTINUITY OF CARE DOCUMENT ---
Author Name saima landaverde Address Unknown Organization [facility] Address [address] [place] [address] [address] [place] [address] Phone [phone] Care Team Providers Care Airplane Cover Maker Name Role Phone saima landaverde Unavailable Unavailable
--- OUTSIDE RECORDS SUMMARY | 2024-08-13 13:22 | XMS_ITS | Encounter Summary ---
Author Organization [facility] Healthcare Address [address] [place] [address] Care Team Providers Care Returning Officer Name Role Phone Juan Cabral MD Primary Care Provider Encounter Details Date Type Department Care Team (Late st Contact Info) Description 07/10/2024 Results Follow-Up [facility] Cardiology [address] [facility] [address] [place] [address] Britni Frazier NP [address] [facility] [address] [place] [address] [facility] Mobile Cardiac Telemetry Event Monitor Social History Tobacco Use Types Packs/Day Years [...] on file Legal Sex Female 8:01 PM BAR ATTENDANT Gender Identity Female 08/02/2020 7:06 PM CDT Sexual Orientation Not on file documented as of this encounter Plan of Treatment Not on file documented as of this encounter Visit Diagnoses Not on filedocumented in this encounter Care Teams Returning Officer Relationship Specialty Start Date End Date Juan Cabral MD [address] [facility] [address] [place] [address] PCP - General Family Medicine 03/28/19 documented as of this encounter
--- NOTE | 2024-08-13 13:33 | ECG_ITS ---
Test Date: 2024-08-13 15:02:06 Measurements Intervals [place] Rate: 77 P: -1 MD: 164 QRS: 6 QRSD: 94 T: 38 QT: 389 QTc: 441 Interpretive Statements SINUS RHYTHM No previous ECG available for comparison Electronically Signed On 08-14-2024 16:29:32 CDT by Franki Islas M.D.
[2024-08-13 14:16] LABS: Basophils Percent Auto 0.5 % (0.2-1.2); Eosinophils Absolute Auto 0.2 K/mm3 (0-0.3); Eosinophils Percent Auto 2.9 % (0-4.4); Hematocrit 36.5 % (37.0-47.0); Hemoglobin 11.8 g/dL (12.0-15.0); Immature Granulocyte Absolute 0.02 K/mm3 (0.00-0.031); Immature Granulocyte Percent A 0.3 % (0-0.5); Lymphocytes Percent Auto 41.3 % (18.3-44.2); Mean Corpuscular HGB Conc 32.3 g/dl (32-36); Mean Corpuscular Volume 95.8 fl (80-100); Mean Platelet Volume 9.6 fl (7.4-10.4); Monocytes Absolute Auto 0.4 K/mm3 (0.1-0.6); Monocytes Percent Auto 5.2 % (2.6-8.5); Neutrophils Absolute Auto 3.7 K/mm3 (1.3-6.7); Neutrophils Percent Auto 49.8 % (45.5-73.1); Platelet Count Result 180 k/mm3 (150-375); Red Blood Count 3.81 M/mm3 (4.2-5.4); Red Cell Distribution Width 14.2 % (11.5-14.5); White Blood Count 7.5 K/mm3 (4.5-10.0)
[2024-08-13 14:28] LABS: INR 1.1; Prothrombin Time 14.4 Seconds (11.1-14.7)
[2024-08-13 14:29] LABS: Partial Thromboplastin Time 31.2 Seconds (22.3-36.8)
[2024-08-13 14:37] LABS: Troponin I < 0.012 ng/mL (0.000-0.034)
[2024-08-13 14:39] LABS: Alanine Aminotransferase 14 U/L (6-35); Albumin Level 4.3 g/dL (3.5-5.1); Alkaline Phosphatase 83 U/L (38-126); Anion Gap 9 mmol/L (4-12); Aspartate Amino Transferase 23 U/L (14-36); Bilirubin,Total 0.4 mg/dL (0.2-1.3); Blood Urea Nitrogen 11 mg/dL (7-17); Calcium 9.2 mg/dL (8.4-10.2); Carbon Dioxide 22 mmol/L (22-30); Chloride 106 mmol/L (98-107); Estimated CRCL calculation 65 ml/min; Estimated Glomerular Filt Rate 59; Glucose 112 mg/dL (65-110); Potassium 4.3 mmol/L (3.4-5.0); Sodium 137 mmol/L (137-145)
--- NOTE | 2024-08-13 14:52 | ED.GENADULT ---
HPI - General Adult General Chief complaint: Neuro Symptoms/Deficit Stated complaint: sent by -high BP, [place], Dizziness Time Seen by Provider: 08/13/24 14:35 History of Present Illness HPI narrative: 64 old female with no prior history of CVA but does have history type 2 diabetes, proximal AFib, coronary artery disease presents to the emergency department for evaluation for short-term memory loss, headache high blood pressure with associated generalized weakness. Patient states that hypertension and headache have been ongoing since yesterday. Patient reports that the short-term mL as has been ongoing for the last few weeks. 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 On physical exam patient has loss of peripheral vision on the left eye which she states is new for her. Related Data Home Medications ?Medication ?Instructions ?Recorded ?Confirmed ?Last Taken ?Type rosuvastatin 20 mg tablet (Crestor) 20 mg PO DAILY 04/04/19 08/13/24 08/12/24 19:00 History nitroglycerin 0.4 mg sublingual 0.4 mg sublingual ONCE PRN Chest 06/04/19 08/13/24 12/14/20 History tablet (Nitrostat) Pain metoprolol tartrate 50 mg tablet 100 mg PO Q12H 02/23/22 08/13/24 08/12/24 19:00 History (Lopressor) ranolazine 1,000 mg 1,000 mg PO Q12H 08/04/22 08/13/24 08/12/24 07:00 History tablet,extended release,12 hr dulaglutide 3 mg/0.5 mL 3 mg subcut WEEKLY 12/18/23 08/13/24 08/11/24 10:00 History subcutaneous pen injector (Trulicity) Lasix 10 mg PO .q48 02/26/24 08/13/24 08/11/24 10:00 History rivaroxaban 20 mg tablet (Xarelto) 20 mg PO Q24H 02/26/24 08/13/24 08/12/24 10:00 History 20 mg Allergies Allergy/AdvReac Type Severity Reaction Status Date / Time carbamazepine Allergy Unknown Unknown Verified 04/16/24 15:14 Tetanus Vaccines and Toxoid Allergy Unknown Unknown Verified 04/16/24 15:14 tuberculin, purified protein Allergy Unknown Unknown Verified 04/16/24 15:14 deriva adhesive tape Allergy Unknown Verified 04/16/24 15:14 empagliflozin (From Allergy Unknown Verified 04/16/24 15:14 Jardiance) TETANUS TOXOID,FLUID Allergy Unknown Unknown Uncoded 04/16/24 15:14 Review of Systems Review of Systems: All systems reviewed & are unremarkable except as noted in HPI and below [facility] Past Medical History Medical History (Updated 08/13/24 @ 17:10 by Crispin Taylor MD) CKD (chronic kidney disease), stage III Heart and renal disease, hypertensive Vitamin B12 deficiency Diabetes mellitus with diabetic neuropathy, without long-term current use of insulin Type 2 diabetes mellitus Chronic anticoagulation Obstructive sleep apnea on CPAP Paroxysmal atrial fibrillation Hypertension Coronary artery disease Status post right coronary artery stent in 2019. Left heart catheterization in December 2020 showed a patent stent with nonocclusive 30% stenosis of the mid RCA. Controlled diabetes mellitus Hyperlipemia Diastolic heart failure Essential hypertension Chest pain Hypothyroidism Tobacco use disorder Surgical History Surgical History S/P ablation of atrial fibrillation History of cholecystectomy History of heart artery stent (2019) Right coronary artery. Status post rotator cuff repair Status post hysterectomy Family History Family History Sibling Patient's sister is in good health Family history of type 2 diabetes mellitus Acute myocardial infarction Sibling Family history of type 2 diabetes mellitus Sibling Family history of type 2 diabetes mellitus Sibling Family history of type 2 diabetes mellitus Sibling Family history of type 2 diabetes mellitus Coronary artery disease involving coronary bypass graft Mother Family history of type 2 diabetes mellitus Acute myocardial infarction Coronary artery disease involving coronary bypass graft Cerebrovascular accident Hypertension Father Liver cancer Lupus Hypertension Social History Social History Social History: Surrogate decision maker: Hola Ortiz, significant other. Code status: Full code. Smoking packs per day: 0.5 Smoking cigarettes per day: 10.0 Years smoked: 40 Smoking pack-years: 20.00 Smoking status: Former smoker Tobacco type: cigarettes Second hand tobacco smoke exposure: No Smoking end date: 05/19/23 Alcohol intake: never Substance use: never Substance use type: does not use Do You Feel Safe in your Home?: Yes Lack of Transportation: No Lack of Food: Never True Current Housing: I Have Housing Concerned About Future Housing: No Difficulty Paying Gas/Electric Bills: No Difficulty Paying for Meds: No Currently Unemployed: No Education: Bachelor's Degree Difficulty w/ Childcare or Family Care: No Living arrangements: with family Occupation/Education: occupation Gender identity (if verbalized by the patient): Female Sexual Orientation (if Verbalized by the Patient): Straight or Heterosexual Spiritual care concerns: No Exam Narrative: APPEARANCE: Well appearing, no pain, no distress, well-nourished. HEAD: normocephalic, atraumatic. EYES: PERRLA/EOMI, conjunctivae clear. Loss of lateral peripheral vision in the left NOSE: Normal no drainage EARS:TMS clear with good light reflex. THROAT: Pharynx clear, no exudate. NECK: Supple. No adenopathy, no masses. RESPIRATORY: Airway patent, respirations nonlabored. Clear to auscultation bilaterally, no rales, rhonchi, wheezing. CARDIOVASCULAR: Regular rate and rhythm without murmurs rubs or gallops. ABDOMINAL: Soft, nontender, nondistended, normal bowel sounds MUSCULOSKELETAL: Moves all extremities. Strength/ROM intact, No edema, No calf tenderness. NEURO: Alert. Cranial nerves II through XII intact. Good gait. Good coordination SKIN: Warm, dry. Normal Color Course Vital Signs Vital signs: Vital Signs Temperature 97.6 F 08/13/24 13:20 Pulse Rate 90 08/13/24 13:20 Respiratory Rate 18 08/13/24 13:20 Blood Pressure 185/90 H 08/13/24 13:20 Pulse Oximetry 100 08/13/24 13:20 Oxygen Delivery Room Air 08/13/24 13:20 Temperature 98.3 F 08/13/24 14:18 Pulse Rate 81 08/13/24 18:00 Respiratory Rate 22 H 08/13/24 18:00 Blood Pressure 130/107 H 08/13/24 18:00 Pulse Oximetry 100 08/13/24 18:00 Oxygen Delivery Room Air 08/13/24 14:18 Medical Decision Making MDM Narrative Medical decision making narrative: 64 old female presenting emergency department for evaluation for complaint of headache and short-term memory loss. Patient does have loss of left lateral vision out of the left eye which is thought to be acute. 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 Patient's NIH score is approximately a 1 with no other significant acute neurologic abnormalities. CT scan does show concern for region of hypodensity with in the temporal lobe concerning for infarction within the right MCA distribution. CTA was ordered and does confirm decreased blood flow in that same hypodense region with concern for occlusion versus stenosis. Patient reports her last known normal was when she went to bed on 08/11. Patient's symptoms have been present since 08/12. I did discuss the case with [facility] (Dr Paul) and they confirm the since symptoms have been ongoing for greater than 24 hours patient would not be a candidate for thrombectomy or intervention. Patient does take Plavix and Xarelto. Discussed case with Neurology and they are comfortable admitting the patient here for MRI and further evaluation. Case discussed with hospitalist patient was accepted for admission. Patient was updated on the results of workup and plan for admission for further evaluation including MRI. Patient has no pacemaker and/or stimulators that would prevent her from having an MRI. Differential Diagnosis Differential Diagnosis: CVA, TIA, stenosis, thromboembolism Vital Signs Vital Signs: Vital Signs Temperature 97.6 F 08/13/24 13:20 Pulse Rate 90 08/13/24 13:20 Respiratory Rate 18 08/13/24 13:20 Blood Pressure 185/90 H 08/13/24 13:20 Pulse Oximetry 100 08/13/24 13:20 Oxygen Delivery Room Air 08/13/24 13:20 Temperature 98.3 F 08/13/24 14:18 Pulse Rate 81 08/13/24 18:00 Respiratory Rate 22 H 08/13/24 18:00 Blood Pressure 130/107 H 08/13/24 18:00 Pulse Oximetry 100 08/13/24 18:00 Oxygen Delivery Room Air 08/13/24 14:18 Lab Data Lab results reviewed: Yes I reviewed the patient's lab results. 08/13/24 14:10 08/13/24 14:09 Labs: Lab Results 08/13/24 08/13/24 Range/Units 14:09 14:10 WBC 7.5 (4.5-10.0) K/mm3 RBC 3.81 L (4.2-5.4) M/mm3 Hgb 11.8 L (12.0-15.0) g/dL Hct 36.5 L (37.0-47.0) % MCV 95.8 (80-100) fl MCH 31.0 (26-34) pg MCHC 32.3 (32-36) g/dl RDW 14.2 (11.5-14.5) % Plt Count 180 (150-375) k/mm3 MPV 9.6 (7.4-10.4) fl Immature Gran % (Auto) 0.3 (0-0.5) % Neut % (Auto) 49.8 (45.5-73.1) % Lymph % (Auto) 41.3 (18.3-44.2) % Hendricks % (Auto) 5.2 (2.6-8.5) % Eos % (Auto) 2.9 (0-4.4) % Baso % (Auto) 0.5 (0.2-1.2) % Lymph # (Auto) 3.10 (0.9-3.2) K/mm3 Hendricks # (Auto) 0.4 (0.1-0.6) K/mm3 Eos # (Auto) 0.2 (0-0.3) K/mm3 Baso # (Auto) 0.0 (0.0-0.1) K/mm3 Abs Immat Gran (auto) 0.02 (0.00-0.031) K/mm3 Absolute Neuts (auto) 3.7 (1.3-6.7) K/mm3 Absolute Nucleated RBC 0.000 (0.0-0.012) K/mm3 Nucleated RBC % 0.0 (0.0-0.2) % PT 14.4 (11.1-14.7) Seconds INR 1.1 APTT 31.2 (22.3-36.8) Seconds Sodium 137 (137-145) mmol/L Potassium 4.3 (3.4-5.0) mmol/L Chloride 106 (98-107) mmol/L Carbon Dioxide 22 (22-30) mmol/L Anion Gap 9 (4-12) mmol/L BUN 11 (7-17) mg/dL Creatinine 0.96 (0.7-1.0) mg/dL Estim Creat Clear Calc 65 ml/min Estimated GFR 59 (59 - ) Glucose 112 H (65-110) mg/dL Calcium 9.2 (8.4-10.2) mg/dL Total Bilirubin 0.4 (0.2-1.3) mg/dL AST 23 (14-36) U/L ALT 14 (6-35) U/L Alkaline Phosphatase 83 (38-126) U/L Troponin I < 0.012 (0.000-0.034) ng/mL Total Protein 7.0 (6.3-8.2) g/dL Albumin 4.3 (3.5-5.1) g/dL Imaging Data Radiologist's impression: Impressions Head CT 08/13/24 13:51 Impression: No acute intracranial hemorrhage or suspicious mass effect. Well-circumscribed focus of decreased attenuation adjacent to the posterior horn of the right lateral ventricle (within the right temporal lobe) in the distribution of the right middle cerebral artery for which clinical evaluation and follow-up MRI is recommended. These findings were discussed with Dr. Taylor at 1345 on 08/13/2024 Chest X-Ray 08/13/24 14:02 IMPRESSION: 1: NO ACUTE CARDIOPULMONARY DISEASE. Head/Neck CTA 08/13/24 16:14 IMPRESSION: 1. CTA head and neck. Percent stenosis per NASCET criteria is 40% on the left and 20% on the right. Stenosis in the intracranial left internal carotid artery of about 50%. 2. Posterior communicating arteries continue to the posterior cerebral arteries. 3. Possibility of occlusion or stenosis in the distal branches of the right middle cerebral artery in the area of the hypodensity is not excluded. 4. Dominant left vertebral artery. Dr. Crispin Taylor was notified with the result of the patient at 4:48 PM on August 13, 2024. ECG Data EKG #1: EKG Interpretation: normal rate, sinus rhythm, no ectopy, non-specific ST changes, normal QRS, normal QT and NL axis Critical Care Time Critical Care Time Critical Care Time: Yes Total Critical Care Time: 35 Discharge Plan Discharge Clinical Impression: Acute CVA (cerebrovascular accident), Headache, Vision changes Patient Disposition: Still a Patient Condition: Serious Quality Stroke Scale Stroke Scale 1: Stroke scale time:: 17:02 1a Level of consciousness: alert-0 1b Level of consciousness questions: answers both correctly-0 1c Level of consciousness commands: obeys both correctly-0 2 Best gaze: normal-0 3 Visual: partial hemianopia-1 4 Facial palsy: normal-0 5a Motor: left arm: no drift-0 5b Motor: right arm: no drift-0 6a Motor: left leg: no drift-0 6b Motor: right leg: no drift-0 7 Limb ataxia: absent-0 8 Sensory: normal-0 9 Best language: no aphasia-0 10 Dysarthria: normal-0 11 Extinction and inattention: no abnormality-0 Level:: 1
--- OUTSIDE RECORDS SUMMARY | 2024-08-13 14:52 | XMS_ITS | Encounter Summary ---
Author Organization [facility] Address [address] [place] [address] Phone Care Team Providers Care Crusher Feeder Name Role Phone Juan Cabral MD Primary [...] on file Legal Sex Female 8:01 PM STAGE SET UP WORKER Gender Identity Female 08/02/2020 7:06 PM CDT [...] on filedocumented in this encounter Care Teams Crusher Feeder Relationship Specialty Start Date End Date Juan Cabral MD [address] [facility] [facility] [address] [facility] [address] [place] [address] PCP - General Family Medicine 03/28/19 documented as of this encounter
--- OUTSIDE RECORDS SUMMARY | 2024-08-13 14:52 | XMS_ITS | Encounter Summary ---
Author Organization [facility] Address [address] [place] [address] Phone Care Team Providers Care Clinical Rehab Liaison Name Role Phone Juan Cabral MD Primary [...] on file Legal Sex Female 8:01 PM CFO Gender Identity Female 08/02/2020 7:06 PM CDT [...] on filedocumented in this encounter Care Teams Clinical Rehab Liaison Relationship Specialty Start Date End Date Juan Cabral MD [address] [facility] [address] [facility] [address] [place] [id number] PCP - General Family Medicine 03/28/19 documented as of this encounter
--- OUTSIDE RECORDS SUMMARY | 2024-08-13 14:52 | XMS_ITS | CONTINUITY OF CARE DOCUMENT ---
Author Name saima landaverde Address Unknown Organization [facility] Address [address] [place] [address] [address] [place] [address] Phone [phone] Care Team Providers Care Yarder Puncher Name Role Phone saima landaverde Unavailable Unavailable
--- OUTSIDE RECORDS SUMMARY | 2024-08-13 14:52 | XMS_ITS | Encounter Summary ---
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
--- OUTSIDE RECORDS SUMMARY | 2024-08-13 14:52 | XMS_ITS | Encounter Summary ---
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
--- OUTSIDE RECORDS SUMMARY | 2024-08-13 14:52 | XMS_ITS | Encounter Summary ---
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
--- OUTSIDE RECORDS SUMMARY | 2024-08-13 14:52 | XMS_ITS | Encounter Summary ---
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
--- OUTSIDE RECORDS SUMMARY | 2024-08-13 14:52 | XMS_ITS | Encounter Summary ---
Author Organization [facility] Address [address] [place] [address] Care Team Providers Care Real Estate Accountant Name Role Phone Juan Cabral MD Primary Care Provider Reason for Visit * Reason Comments Dizziness Dizziness, headache and elevated BP started yesterday c/o dizziness is constant and off balance when walking Encounter Details Date Type Department Care Team (Late st Contact Info) Description 08/13/2024 12:45 PM CDT Office Visit [facility] at [address] [address] Nova Pryor PA [address] [place] [address] [address] [place] [address] Confusion (Primary Dx); Dizziness; Hypertension, [...] on file Legal Sex Female 8:01 PM PHYSICIAN ASSISTANT Gender Identity Female 08/02/2020 7:06 PM [...] 12:46 PM CDT documented in this encounter Progress Notes * Nova Pryor PA - 08/13/2024 12:45 PM CDT Images from the original note were not included. Subjective/Objective Patient ID: Francine Carson is a 64 y.o. female. Chief Complaint Dizziness (Dizziness, headache and elevated BP started yesterday c/o dizziness is constant and off balance when walking ) Pt presents w/ dizziness x 1 day. Also reports headache, feels off balance. Feels confused, having trouble driving. States her coworkers wanted to send her to hospital today. Hx of HTN, states BP was high at work, states she doesn't remember what it was. Has appt with her pcp today at 330. Had chest pain earlier today which resolved but states this is normal for her. Reports sob currently but this is baseline. Reports bilateral hand tingling. Hx of afib, CAD s/p 1 stent, HTN, DM, CHF. Review of Systems All systems reviewed and are negative or non contributory for this patient's presentation today other than as stated in the HPI . Physical Exam Constitutional: General: She is not in acute distress. HENT: Head: Normocephalic and atraumatic. Mouth/Throat: Pharynx: Oropharynx is clear. Eyes: Extraocular Movements: Extraocular movements intact. Pupils: Pupils are equal, round, and reactive to light. Cardiovascular: Rate and Rhythm: Normal rate and regular rhythm. Pulmonary: Effort: Pulmonary effort is normal. Breath sounds: Normal breath sounds. Musculoskeletal: General: Normal range of motion. Cervical back: Normal range of motion. Skin: General: Skin is warm and dry. Neurological: General: No focal deficit present. Mental Status: She is alert and oriented to person, place, and time. Cranial Nerves: No cranial nerve deficit. Psychiatric: Mood and Affect: Mood normal. Behavior: Behavior normal. Vitals: 08/13/24 1246 BP: (!) 180/102 Pulse: 85 Resp: 20 Temp: 36.8 ??C (98.3 ??F) SpO2: 99% Weight: 100.2 kg (221 lb) Height: 172.7 cm (5' 8) Assessment/Plan -pt presents w/ acute onset dizziness, headache, confusion, chest pain, shortness of breath which started yesterday -hx of afib, CAD w/ stent, HTN, DM, CHF -today at work she was confused, her coworkers wanted to call EMS but she refused so significant other picked her up and brought her here -she is A/O x 3 but seems a bit confused currently, no focal neuro deficits -recommended EMS but patient and hsuband both refused, he is driving her straight to ED at this time to r/o cardiac or neurologic etiology Diagnoses and all orders for this visit: Confusion (Primary) Dizziness Hypertension, essential Elevated blood pressure reading No results found for this or any previous visit (from the past 4 hours). Disposition ER - Refused EMS, transporting her [facility]EE Green 08/13/24 1:03 PM Cosigned by Azael Cortes MD at 08/13/2024 1:25 PM CDT documented in this encounter Plan of Treatment Not on file documented as of this encounter Visit Diagnoses Diagnosis Confusion- Primary Unspecified psychosis Dizziness Dizziness and giddiness Hypertension, essential Unspecified essential hypertension Elevated blood pressure reading Elevated blood pressure reading without diagnosis of hypertension documented in this encounter Care Teams Real Estate Accountant Relationship Specialty Start Date End Date Juan Cabral MD [address] [facility] [address] [place] [address] PCP - General Family Medicine 03/28/19 documented as of this encounter
--- OUTSIDE RECORDS SUMMARY | 2024-08-13 14:52 | XMS_ITS | Referral Summary ---
Author Organization [facility] [address] Address [address] [place] [address] Phone Care Team Providers Care Community Relations Director Name Role Phone Juan Cabral MD Primary Care Provider Encounters Date Type Department Care Team Description 08/13/2024 12:45 PM CDT Office Visit [facility] Care at [address] [phone] Nova Pryor PA Confusion (Primary Dx); Dizziness; Hypertension, essential; Elevated blood pressure reading 07/30/2024 Results Follow-Up [facility] Cardiology [address] [place] [address] 8th [place] [address] [place] [phone] Mitul Peace MD ECG 12 lead 07/10/2024 Results Follow-Up [facility] Cardiology [address] [place] [address] [place] [phone] Britni Frazier NP MCT Mobile Cardiac Telemetry Event Monitor 06/27/2024 10:30 AM CDT Ancillary Procedure [facility] Cardiology [address] [place] [address] [address] [place] [phone] Dizziness; Bradycardia 06/27/2024 1:45 PM CDT Office Visit [facility] Cardiology [address] [place] [address] Medicine 8th [place] [address] [place] [address] Mitul Peace MD Atrial fibrillation, unspecified type (HCC) (Primary Dx); Paroxysmal atrial fibrillation (CMS/HCC) (HCC); Ventricular premature beats; extermination inspector current use of anticoagulant therapy 06/24/2024 Telephone [facility] Cardiology [address] [place] [address] [place] [phone] Greg Nichols MD 05/30/2024 1:30 PM CDT Office Visit [place] [address] [place] [phone] Britni Frazier, KATIE Coronary artery disease of [place] artery of [place] heart with stable angina pectoris (Primary Dx); Hypertension associated with diabetes (HCC); Paroxysmal atrial fibrillation (HCC) 05/24/2024 12:21 PM WARPER CREELER - 05/24/2024 1:51 PM WARPER CREELER Surgery [facility] Cardiac Catheterization Lab [address] [place] [address] Jesus Owens MD LEFT HEART CATHETERIZATION WITH CORONARY ANGIOGRAPHY AND WITH OR WITHOUT LEFT VENTRICULOGRAM [id number] 05/24/2024 9:29 AM WARPER CREELER - 05/24/2024 4:04 PM WARPER CREELER Hospital Encounter [facility] Cardiac Catheterization Lab [address] [place] [address] Jesus Owens MD Abnormal nuclear cardiac imaging test; Coronary artery disease of [place] artery of [place] heart with stable angina pectoris Discharge Disposition: Discharge to home or self care 05/23/2024 Telephone [facility] Cardiology [address] [place] [address] [place] [phone] Jesus Owens MD 05/20/2024 Telephone [facility] Cardiology [address] [place] [address] [place] [phone] Greg Nichols MD from Last 3 Months [...] 1 tablet (40 mg total) by mouth sole leveler before breakfast 9 Active dulaglutide (Trulicity) 3 [...] 20 mg tabletIndications :PAF (paroxysmal atrial fibrillation) ([facility]),Coronary artery disease of [place] artery of [place] heart with stable angina pectoris Take 1 [...] tabletIndications :Premature ventricular contraction,PAF (paroxysmal atrial fibrillation) ([facility]) Take 1 tablet by mouth twice daily 180 tablet 2 5 Active ranolazine ER (RANEXA) 1,000 mg 12 hr tabletIndications :Coronary artery disease of [place] artery of [place] heart with stable angina pectoris Take 1 [...] 24 hr tabletIndications :Coronary artery disease of [place] artery of [place] heart with stable angina pectoris Take 1 tablet (60 mg total) by mouth daily 90 tablet 3 5 05/31/19 26 Active rosuvastatin (CRESTOR) 20 mg tabletIndications :Hypertension associated with diabetes (HCC),Acceleratin g angina (HCC) Take 1 tablet by mouth once daily 90 tablet 1 5 Active Active Problems Problem Noted Date Diagnosed Date extermination inspector current use of anticoagulant therapy 0 07/30/2024 Former tobacco use 04/01/2024 Chronic obstructive pulmonary disease, unspecifi ed 01/01/2024 Nonrheumatic aortic valve stenosis 09/01/2023 Atrial fibrillation 08/01/2022 Assessment & Plan (09/06/2022 2:31 PM CDT): Paroxysmal atrial fibrillation s/p PVI cryoablation on 08/01/2022 Multaq was discontinued following ablation No AF recurrence Continue metoprolol Continue Xarelto anticoagulation ([id number] score 4) Encouraged lifestyle modifications including regular [...] artery disease of n ative artery of [place] heart with stable angina pectoris 04/18/2019 extermination inspector current use of antiarrhythmic drug Hypertension associated [...] prednisone.. Assessment & Plan (02/15/2018 5:22 PM WARPER CREELER): Patient coughing x2 weeks is clear sputum [...] benign recommendation at this time try meclizine [id number] still having disease later in the week probable for the make a referral are do imaging I do not think is indicated at this time. History of atrial fibrillation without current m edication 11/04/2017 Assessment & Plan (09/14/2018 9:55 AM CDT): No evidence of atrial fibrillation today. Assessment & Plan (11/04/2017 12:30 PM CDT): Patient proximal atrial fibrillation September 2016 admitted to [facility]. She had a follow-up cardiology at [facility] Xarelto was recommend as well as diltiazem. Patient is on the the medicines at this time she informs me that follow-up visit with local hospital cleaner discontinue medication because was a brief episode [...] . Assessment & Plan (04/11/2018 4:37 PM WARPER CREELER): Diabetes is improving with treatment. Continue current [...] functioning well. Plans referred this patient to clinical staff educator, start on metformin and she is [...] getting computer download software from the glucometer [employer]. I will see this patient back in [...] none since that time. Paroxysmal atrial fibrillation ([facility]) 017 Assessment & Plan (11/04/2017 12:24 PM [...] no coronary artery disease found. Patient admission [facility] 1998 for atypical chest pain was thought [...] on file Legal Sex Female 8:01 PM WARPER CREELER Gender Identity Female 08/02/2020 7:06 PM CDT [...] on file Medical Devices Implanted Type Area Foundry Molder Device Identifier Shelf Expiration Date Model / Serial / Lot Dimers [employer] Vascade Mvp 6-12fr Venous Closure [id number] - [id number] - [id number] Implanted:Qty : 1 on 08/01/2022 by Mitul Peace MD at [facility] Collagen Right: Femoral Vein [employer] 04/19/2024 800-612C- 10U / [id number] [id number] / [id number] [id number] [employer] Vascade Mvp 6-12fr Venous Closure [id number] - [id number] - [id number] Implanted:Qty : 1 on 08/01/2022 by Mitul Peace MD at [facility] Collagen Left: Femoral Vein [employer] 04/19/2024 800-612C- 10U / [id number] 09B / [id number] [id number] [employer] Vascade Mvp 6-12fr Venous Closure [id number] - [id number] - [id number] Implanted:Qty : 1 on 08/01/2022 by Mitul Peace MD at [facility] Collagen Left: Femoral Vein [employer] 04/19/2024 800-612C- 10U / [id number] 09B / [id number] [id number] Stent Stent Right: Coronary Procedures Procedure Name Priority Date/Time Associated Diagnosis Comments ECG 12-LEAD Routine 06/27/2024 1:34 PM CDT Atrial fibrillation, unspecified type (HCC) MCT - MOBILE CARDIAC TELEMETRY EVENT MONITOR Routine 06/27/2024 10:37 AM CDT Dizziness Bradycardia POCT GLUCOSE DEVICE Routine 05/24/2024 2 :16 PM WARPER CREELER LEFT HEART CATHETERIZATION WITH CORONARY ANGIOGRAPHY AND WITH AND WITHOUT LEFT VENTRICULOGRAM Routine 05/24/2024 1:57 PM WARPER CREELER Abnormal nuclear cardiac imaging test Coronary artery disease of [place] artery of [place] heart with stable angina pectoris MODERATE SEDATION SAME MD KELLI LEIGH 15 MIN 73300 05/24/2024 1:01 PM WARPER CREELER Abnormal nuclear cardiac imaging test MODERATE SEDATION 05/24/2024 1:0 1 PM WARPER CREELER Abnormal nuclear cardiac imaging test EGFR STAT 05/24/2024 11:00 AM WARPER CREELER COMPREHENSIVE METABOLIC PANEL STAT 05/24/2024 11:00 AM WARPER CREELER DIFFERENTIAL AUTO Routine 05/24/2024 9:4 8 AM WARPER CREELER CBC WITH AUTO DIFFERENTIAL Routine 05/24/2024 9:48 AM WARPER CREELER POCT GLUCOSE DEVICE Routine 05/24/2024 9 :37 AM WARPER CREELER LIPID PANEL Routine 11/09/2023 2:32 PM CDT [...] phy Narrative 07/09/2024 5:56 PM CDT AMBULATORY AIR BRAKE OPERATOR REPORT Patient Name: Francine Carson Date of [...] was used to complete this document, therefore, sushi chef variances may occur. Greg Nichols MD, [facility] 07/09/24 Britni Frazier NP [facility] CARDIAC [facility] Final Result * POCT glucose (05/24/2024 2:16 PM WARPER CREELER) Glucose, POC 103 70 - 199 mg/dL Blood 05/24/2024 2:16 PM WARPER CREELER 05/24/2024 2:16 PM WARPER CREELER Jesus Owens MD LAB POCT ORDERABLES - DEVICE Fin al Result Performing Organization Address City/State/ZIP [place] Phone Number [facility] [address] Department [place] [address] * LEFT HEART CATHETERIZATION WITH CORONARY ANGIOGRAPHY AND WITH AND WITHOUT LEFT VENTRICULOGRAM (05/24/2024 1:57 PM WARPER CREELER) Anatomical Region Laterality Modality X-Ray Angiograph y Narrative 05/24/2024 2:16 PM WARPER CREELER CARDIAC CATHETERIZATION REPORT Francine Carson IP ENCOUNTER: [id number] Date of Procedure: 05/24/2024 BIRTHDATE: 1960 BARREL RAISER HELPER: Jesus Owens MD REFERRING PHYSICIAN: Dr. Nichols [...] patient. Patient was then brought into the director of cardiac cath lab and was draped and prepped in the [...] Result * (ABNORMAL) eGFR (05/24/2024 11:00 AM WARPER CREELER) [facility] eGFR 57(L) >=60 mL/min/1. 73 m2 Comment: [...] reviewed 2021. Blood 05/24/2024 11:0 0 AM WARPER CREELER 05/24/2024 11:03 AM WARPER CREELER us Jesus Owens MD LAB BLOOD ORDERABLES Final Resul t [facility] [address] Department [place] [address] * (ABNORMAL) Comprehensive metabolic panel (05/24/2024 11:00 AM WARPER CREELER) Sodium 141 135 - 145 mmol/L Potassium, pl 4.9 3.3 - 4.9 mmol/L [facility] Chloride 105 97 - 110 mmol/L [facility] CO2 23 22 - 32 mmol/L [facility] Anion gap 13 2 - 15 mmol/L [facility] BUN 10 6 - 25 mg/dL [facility] Creatinine 1.09 0.60 - 1.10 mg/dL [facility] Glucose 124 70 - 199 mg/dL [facility] Comment: Interpretive Data Fasting glucose >/= [...] CERNER CH Blood 05/24/2024 11:0 0 AM WARPER CREELER 05/24/2024 11:02 AM WARPER CREELER us Jesus Owens MD LAB BLOOD ORDERABLES Final Resul t [facility] [address] Department [place] [address] * Differential, auto (05/24/2024 9:48 AM WARPER CREELER) Neutrophil abs 3.2 1.5 - 6.5 K/cumm [...] revised on 2017. Monocyte pct 4.1 % [facility] Comment: Interpretive Data Percent cell count [...] revised on 2017. Basophil pct 0.5 % [facility] Comment: Interpretive Data Percent cell count reference ranges are not reported, since discordance with absolute values may lead to misinterpretation of CBC data. Current Interpretive Data was last revised on 2017. Blood 05/24/2024 9:48 AM WARPER CREELER 05/24/2024 9:57 AM WARPER CREELER us Jesus Owens MD LAB BLOOD ORDERABLES Final Resul t [facility] [address] Department [place] [address] * (ABNORMAL) CBC with auto differential (05/24/2024 9:48 AM WARPER CREELER) WBC 5.8 3.8 - 9.9 K/cumm Hgb 11.9 11.9 - 15.5 g/dL [facility] Hct 36.1 35.6 - 45.5 % [facility] Plt 111(L) 150 - 400 K/cumm [facility] MPV 10.2 9.1 - 12.3 fL [facility] RBC 3.67(L) 3.90 - 5.20 M/cumm [facility] MCV 98.4(H) 81.3 - 96.4 fL [facility] MCH 32.4 27.1 - 33.3 pg [facility] MCHC 33.0 32.3 - 35.7 g/dL [facility] RDW CV 14.7 11.1 - 14.9 % [facility] RDW SD 53.1(H) 35.7 - 48.1 fL [facility] NRBC abs 0.00 0.00 - 0.01 K/cumm [facility] Blood 05/24/2024 9:48 AM WARPER CREELER 05/24/2024 9:57 AM WARPER CREELER Jesus Owens MD LAB BLOOD ORDERABLES Final Resul t Performing Organization Address [facility] de Phone Number [facility] [address] [place] [address] * POCT glucose (05/24/2024 9:37 AM WARPER CREELER) Glucose, POC 132 70 - 199 mg/dL Blood 05/24/2024 9:37 AM WARPER CREELER 05/24/2024 9:37 AM WARPER CREELER Jesus Owens MD LAB POCT ORDERABLES - DEVICE Fin al Result Performing Organization Address [facility] de Phone Number [facility] [address] [address] [place] [address] * Lipid panel (11/09/2023 2:32 PM CDT) SCRIBED Cholesterol, Total 117 <200 [facility] SCRIBED HDL 47 >40 [facility] SCRIBED LDL 40 <100 [facility] SCRIBED Triglycerides 187 <150 [facility] Blood Juana Blood MD LAB BLOOD ORDERABLES Edit ed Result - Final Performing Organization Address [facility] de Phone Number [facility] * Albumin Creatinine [...] Performing Organization Information: Site ID: [email or web address] Name: [employer] Address: [address] [place] [address] Director: Jacinto Pizano D.O. MPH us Jacinto Palacio MD LAB URINE ORDERABLES Final Result [facility] [employer] [facility] [place] * (ABNORMAL) Hemoglobin A1c (09/19/2018 9:58 AM CDT) Hgb A1C 6.9(H) <5.7 % of total Hgb [facility] Comment: For someone without [...] Site ID: [facility] Name: Jenifer Anaya Address: [address] [place] [address] Director: Jacinto Pizano D.O. MPH us Jacinto Palacio MD LAB BLOOD ORDERABLES Final Result [facility] [place] [facility] from Last 3 Months or Most Recently Relevant to Health Maintenance Insurance [facility] CHOICE PLUS [place]UE [place] Advance Directives For more information, please contact: [phone] * Full Code (Latest Code Status on File) Date Activated Date Inactivated Comments 08/01/2022 8:49 PM 08/02/2022 4:13 PM Care Teams Community Relations Director Relationship Specialty Start Date End Date Juan Cabral MD [address] [facility] [address] [place] [address] PCP - General Family Medicine 03/28/19
--- OUTSIDE RECORDS SUMMARY | 2024-08-13 14:52 | XMS_ITS | Encounter Summary ---
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 [address] [place] [phone] PCP - General Family Medicine 03/28/19 documented as of this encounter
--- OUTSIDE RECORDS SUMMARY | 2024-08-13 14:52 | XMS_ITS | Clinical Summary ---
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 Take 1 [...] tabletIndications :Premature ventricular contraction,PAF (paroxysmal atrial fibrillation) ([facility]) Take 1 tablet by mouth twice daily 180 tablet 2 5 Active ranolazine ER (RANEXA) 1,000 mg 12 hr tabletIndications :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 Take 1 [...] 24 hr tabletIndications :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 Take 1 tablet (60 mg total) by mouth daily 90 tablet 3 5 05/31/19 26 Active rosuvastatin (CRESTOR) 20 mg tabletIndications :Hypertension associated with diabetes (HCC),Acceleratin g angina (HCC) Take 1 tablet by mouth once daily 90 tablet 1 5 Active Active Problems Problem Noted Date Diagnosed Date shelter current use of anticoagulant therapy 0 07/30/2024 Former tobacco use 04/01/2024 Chronic obstructive pulmonary disease, unspecifi ed 01/01/2024 Nonrheumatic aortic valve stenosis 09/01/2023 Atrial fibrillation 08/01/2022 Assessment & Plan (09/06/2022 2:31 PM CDT): Paroxysmal atrial fibrillation s/p PVI cryoablation on 08/01/2022 Multaq was discontinued following ablation No AF recurrence Continue metoprolol Continue Xarelto anticoagulation ([id number] score 4) Encouraged lifestyle modifications including regular [...] artery disease of n ative artery of marshall heart with stable angina pectoris 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 Assessment & Plan (02/15/2018 5:22 PM SENIOR MECHANICAL DESIGN ENGINEER): Patient coughing x2 weeks is clear sputum [...] benign recommendation at this time try meclizine prbl-erj-[id number] still having disease later in the week probable for the make a referral are do imaging I do not think is indicated at this time. History of atrial fibrillation without current m edication 11/04/2017 Assessment & Plan (09/14/2018 9:55 AM CDT): No evidence of atrial fibrillation today. Assessment & Plan (11/04/2017 12:30 PM CDT): Patient proximal atrial fibrillation September [address] [facility]. She had a follow-up cardiology at [facility] Xarelto was recommend as well as diltiazem. Patient is on the the medicines at this time she informs me that follow-up visit with local mill tender discontinue medication because was a brief episode [...] . Assessment & Plan (04/11/2018 4:37 PM SENIOR MECHANICAL DESIGN ENGINEER): Diabetes is improving with treatment. Continue current [...] functioning well. Plans referred this patient to tobacco prevention health educator, start on metformin and she is [...] no coronary artery disease found. Patient admission [facility] 1998 for atypical chest pain was thought to be GERD. Resolved Problems Problem Noted Date Diagnosed Date Resolved Date Preventative health care 11/04/2017 Palpitations 10/05/2016 11/04/2017 Encounters Date Type Department Care Team Description 08/13/2024 12:45 PM CDT Office Visit [facility] Care at [address] [phone] Nova Pryor PA Confusion (Primary Dx); Dizziness; Hypertension, essential; Elevated blood pressure reading 07/30/2024 Results Follow-Up [facility] Cardiology [address] [place] [address] [place] [phone] Mitul Peace MD ECG 12 lead 07/10/2024 Results Follow-Up [facility] Cardiology [address] [place] [address] Britni Frazier NP MCT Mobile Cardiac Telemetry Event Monitor 06/27/2024 1:45 PM CDT Office Visit [facility] Cardiology [address] 8th [place] [address] [place] [phone] Mitul Peace MD Atrial fibrillation, unspecified type (HCC) (Primary Dx); Paroxysmal atrial fibrillation (CMS/HCC) (HCC); Ventricular premature beats; shelter current use of anticoagulant therapy 06/27/2024 10:30 AM CDT Ancillary Procedure [facility] Cardiology [address] [place] [address] [place] [phone] Dizziness; Bradycardia 06/24/2024 Telephone [place] [address] [place] [phone] Greg Nichols MD 05/30/2024 1:30 PM CDT Office Visit [facility] Cardiology [address] [place] [address] [place] [phone] Britni Frazier NP 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 (Primary Dx); Hypertension associated with diabetes (HCC); Paroxysmal atrial fibrillation (HCC) 05/24/2024 12:21 PM SENIOR MECHANICAL DESIGN ENGINEER - 05/24/2024 1:51 PM [facility] Surgery [facility] Cardiac Catheterization Lab [address] [place] [phone] Jesus Owens MD LEFT HEART CATHETERIZATION WITH CORONARY ANGIOGRAPHY AND WITH OR WITHOUT LEFT VENTRICULOGRAM [id number] 05/24/2024 9:29 AM SENIOR MECHANICAL DESIGN ENGINEER - 05/24/2024 4:04 PM [facility] Hospital Encounter [facility] Cardiac Catheterization Lab [address] [place] [phone] Jesus Owens MD Abnormal nuclear cardiac imaging test; 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 Discharge Disposition: Discharge to home or self care 05/23/2024 Telephone [facility] Cardiology [address] [place] [address] [place] [phone] Jesus Owens MD 05/20/2024 Telephone [facility] Cardiology [address] [place] [address] [place] [phone] Greg Nichols MD from Last 3 Months Immunizations Immunization Administration Dates Next Due Moderna SARS-CoV-2 Monovalent Vaccination (12+ Y RS) 03/27/2021 Surgical History Surgery Date Site/Laterality Comments ROTATOR CUFF REPAIR Left CHOLECYSTECTOMY HYSTERECTOMY CARDIAC CATHETERIZATION 05/24/2024 N/A Procedure: LEFT HEART CATHETERIZATION WITH CORONARY ANGIOGRAPHY AND WITH OR WITHOUT LEFT VENTRICULOGRAM [id number]; Surgeon: Jesus Owens MD; Location: CARDIAC OVERCOIL STEPPER; Service: Cardiovascular; Laterality: N/A; ANGIOPLASTY Medical History [...] artery disease of n ative artery of marshall heart with stable angina pectoris Chronic bronchitis [...] file Legal Sex Female 8:01 PM SENIOR MECHANICAL DESIGN ENGINEER Gender Identity Female 08/02/2020 7:06 PM [...] history exists Medical Devices Implanted Type Area Technology Development Intern Device Identifier Shelf Expiration Date Model / Serial / Lot [employer] Vascade Mvp 6-12fr Venous Closure [id number] - [id number] - [id number] Implanted:Qty : 1 on 08/01/2022 by Mitul Peace MD at [facility] Collagen Right: Femoral Vein [employer] 04/19/2024 800-612C- 10U / [id number] [id number] / [id number] [employer] Vascade Mvp 6-12fr Venous Closure [id number] - [id number] - [id number] Implanted:Qty : 1 on 08/01/2022 by Mitul Peace MD at [facility] Collagen Left: Femoral Vein [employer] 04/19/2024 800-612C- 10U / [id number] [id number] / [id number] [id number] [employer] Vascade Mvp 6-12fr Venous Closure [id number] - [id number] - [id number] Implanted:Qty : 1 on 08/01/2022 by Mitul Peace MD at [facility] Collagen Left: Femoral Vein [employer] 04/19/2024 800-612C- 10U / [id number] [id number] / [id number] [id number] Stent Stent Right: Coronary Procedures Procedure Name Priority Date/Time Associated Diagnosis Comments ECG 12-LEAD Routine 06/27/2024 1:34 PM CDT Atrial fibrillation, unspecified type (HCC) MCT - MOBILE CARDIAC TELEMETRY EVENT MONITOR Routine 06/27/2024 10:37 AM CDT Dizziness Bradycardia POCT GLUCOSE DEVICE Routine 05/24/2024 2 :16 PM SENIOR MECHANICAL DESIGN ENGINEER LEFT HEART CATHETERIZATION WITH CORONARY ANGIOGRAPHY AND WITH AND WITHOUT LEFT VENTRICULOGRAM Routine 05/24/2024 1:57 PM SENIOR MECHANICAL DESIGN ENGINEER Abnormal nuclear cardiac imaging test 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 MODERATE SEDATION SAME MD PEREIRA ADDDylan 15 MIN [id number] 05/24/2024 1:01 PM SENIOR MECHANICAL DESIGN ENGINEER Abnormal nuclear cardiac imaging test MODERATE SEDATION 05/24/2024 1:0 1 PM SENIOR MECHANICAL DESIGN ENGINEER Abnormal nuclear cardiac imaging test EGFR STAT 05/24/2024 11:00 AM SENIOR MECHANICAL DESIGN ENGINEER COMPREHENSIVE METABOLIC PANEL STAT 05/24/2024 11:00 AM SENIOR MECHANICAL DESIGN ENGINEER DIFFERENTIAL AUTO Routine 05/24/2024 9:4 8 AM SENIOR MECHANICAL DESIGN ENGINEER CBC WITH AUTO DIFFERENTIAL Routine 05/24/2024 9:48 AM SENIOR MECHANICAL DESIGN ENGINEER POCT GLUCOSE DEVICE Routine 05/24/2024 9 :37 AM SENIOR MECHANICAL DESIGN ENGINEER LIPID PANEL Routine 11/09/2023 2:32 PM CDT [...] phy Narrative 07/09/2024 5:56 PM CDT AMBULATORY POLICY WRITER SALES REPORT Patient Name: Francine Carson Date of [...] was used to complete this document, therefore, equipment validation specialist variances may occur. Greg Nichols MD, [facility] 07/09/24 us Britni Frazier NP CV CARDIAC SERVICES [facility] Final Result * POCT glucose (05/24/2024 2:16 PM SENIOR MECHANICAL DESIGN ENGINEER) Glucose, POC 103 70 - 199 mg/dL Blood 05/24/2024 2:16 PM SENIOR MECHANICAL DESIGN ENGINEER 05/24/2024 2:16 PM SENIOR MECHANICAL DESIGN ENGINEER us Jesus Owens MD LAB POCT ORDERABLES - DEVICE Fin al Result [facility] [address] Department [place] [address] * LEFT HEART CATHETERIZATION WITH CORONARY ANGIOGRAPHY AND WITH AND WITHOUT LEFT VENTRICULOGRAM (05/24/2024 1:57 PM SENIOR MECHANICAL DESIGN ENGINEER) Anatomical Region Laterality Modality X-Ray Angiograph y Narrative 05/24/2024 2:16 PM SENIOR MECHANICAL DESIGN ENGINEER CARDIAC CATHETERIZATION REPORT Francine Carson IP ENCOUNTER: [id number] Date of Procedure: 05/24/2024 BIRTHDATE: 1960 THREAD MILLING MACHINE SET UP OPERATOR: Jesus Owens MD REFERRING PHYSICIAN: Dr. Nichols [...] patient. Patient was then brought into the refuse laborer and was draped and prepped in the [...] Result * (ABNORMAL) eGFR (05/24/2024 11:00 AM SENIOR MECHANICAL DESIGN ENGINEER) Pathologist [facility] eGFR 57(L) >=60 mL/min/1. 73 m2 Comment: [...] reviewed 2021. Blood 05/24/2024 11:0 0 AM SENIOR MECHANICAL DESIGN ENGINEER 05/24/2024 11:03 AM SENIOR MECHANICAL DESIGN ENGINEER us Jesus Owens MD LAB BLOOD ORDERABLES Final Resul t [facility] [address] Department [place] [address] * (ABNORMAL) Comprehensive metabolic panel (05/24/2024 11:00 AM SENIOR MECHANICAL DESIGN ENGINEER) Pathologist [facility] Sodium 141 135 - 145 mmol/L Potassium, [...] [facility] Blood 05/24/2024 11:0 0 AM SENIOR MECHANICAL DESIGN ENGINEER 05/24/2024 11:02 AM SENIOR MECHANICAL DESIGN ENGINEER us Jesus Owens MD LAB BLOOD ORDERABLES Final Resul t [facility] [address] Department [place] [address] * Differential, auto (05/24/2024 9:48 AM SENIOR MECHANICAL DESIGN ENGINEER) Neutrophil abs 3.2 1.5 - 6.5 K/cumm Imm gran abs 0.0 0.0 - 0.1 K/cumm [facility] Lymphocyte abs 2.2 0.8 - 3.3 K/cumm [facility] Monocyte abs 0.2 0.2 - 0.8 K/cumm [facility] Eosinophil abs 0.2 0.0 - 0.5 K/cumm [facility] Basophil abs 0.0 0.0 - 0.1 K/cumm [facility] Neutrophil pct 54.8 % [facility] Comment: Interpretive Data Percent cell count reference ranges are not reported, since discordance with absolute values may lead to misinterpretation of CBC data. Current Interpretive Data was last revised on 2017. Imm gran pct 0.2 % [facility] Comment: Interpretive Data Percent cell count reference ranges are not reported, since discordance with absolute values may lead to misinterpretation of CBC data. Current Interpretive Data was last revised on 2017. Lymphocyte pct 37.8 % [facility] Comment: Interpretive Data Percent cell count reference ranges are not reported, since discordance with absolute values may lead to misinterpretation of CBC data. Current Interpretive Data was last revised on 2017. Monocyte pct 4.1 % [facility] Comment: Interpretive Data Percent cell count reference ranges are not reported, since discordance with absolute values may lead to misinterpretation of CBC data. Current Interpretive Data was last revised on 2017. Eosinophil pct 2.6 % [facility] Comment: Interpretive Data Percent cell count reference ranges are not reported, since discordance with absolute values may lead to misinterpretation of CBC data. Current Interpretive Data was last revised on 2017. Basophil pct 0.5 % [facility] Comment: Interpretive Data Percent cell count reference ranges are not reported, since discordance with absolute values may lead to misinterpretation of CBC data. Current Interpretive Data was last revised on 2017. Blood 05/24/2024 9:48 AM SENIOR MECHANICAL DESIGN ENGINEER 05/24/2024 9:57 AM SENIOR MECHANICAL DESIGN ENGINEER us Jesus Owens MD LAB BLOOD ORDERABLES Final Resul t [facility] Department [place] [address] * (ABNORMAL) CBC with auto differential (05/24/2024 9:48 AM SENIOR MECHANICAL DESIGN ENGINEER) WBC 5.8 3.8 - 9.9 K/cumm Hgb [...] K/cumm [facility] Blood 05/24/2024 9:48 AM SENIOR MECHANICAL DESIGN ENGINEER 05/24/2024 9:57 AM SENIOR MECHANICAL DESIGN ENGINEER Jesus Owens MD LAB BLOOD ORDERABLES Final Resul t [facility] [address] Department [place] [address] * POCT glucose (05/24/2024 9:37 AM SENIOR MECHANICAL DESIGN ENGINEER) Pathologist [facility] Glucose, POC 132 70 - 199 mg/dL Blood 05/24/2024 9:37 AM SENIOR MECHANICAL DESIGN ENGINEER 05/24/2024 9:37 AM SENIOR MECHANICAL DESIGN ENGINEER Jesus Owens MD LAB POCT ORDERABLES - DEVICE Fin al Result [facility] Department [place] [address] * Lipid panel (11/09/2023 2:32 PM CDT) Pathologist [facility] SCRIBED Cholesterol, Total 117 <200 [facility] SCRIBED HDL 47 >40 [facility] SCRIBED LDL 40 <100 [facility] SCRIBED Triglycerides 187 <150 [facility] Blood Historical Provider LAB BLOOD ORDERABLES Edit ed Result - Final Performing Organization Address [facility]/ZIP Co de Phone Number [facility] * Albumin Creatinine Ratio, Urine (09/19/2018 9:58 AM CDT) Creatinine, ur 39 20 - 275 mg/dL [email or web address] [place] Microalbumin, ur <0.2 See Note: mg/dL [email or web address] [place] Comment: Reference Range: Reference Range Not established Microalbumin/creat ratio NOTE <30 mcg/mg creat [email or web address] [place] Comment: The microalbumin value [...] Agency Comment Performing Organization Information: Site ID: [place] Name: [facility] Address: [id number] [place] [address] [place] [address] Director: Jacinto Pizano D.O., MPH Jacinto Palacio MD LAB URINE ORDERABLES Final Result Performing Organization Address [facility]/ZIP Co de Phone Number JENIFER [email or web address] [place], [place] * (ABNORMAL) Hemoglobin A1c (09/19/2018 9:58 AM CDT) Hgb A1C 6.9(H) <5.7 % of total Hgb [employer] [facility] [place] Comment: For someone without known diabetes, a [...] Performing Organization Information: Site ID: [place] Name: [facility] Address: [address] [address] Director: Jacinto Pizano D.O., MPH Jacinto Palacio MD LAB BLOOD ORDERABLES Final Result [facility] [place] from Last 3 Months or Most Recently Relevant to Health Maintenance Insurance [facility]ICE [facility] H[facility]/PPO Address: [facility] [address] [place] [address] [facility] Advance Directives For more information, please contact: [phone] * Full Code (Latest Code Status on File) Date Activated Date Inactivated Comments 08/01/2022 8:49 PM 08/02/2022 4:13 PM Care Teams Agency Development Manager Relationship Specialty Start Date End Date Juan Cabral MD [address] [address] PCP - General Family Medicine 03/28/19
--- OUTSIDE RECORDS SUMMARY | 2024-08-13 14:53 | XMS_ITS | Encounter Summary ---
Author Organization [facility] Address [address] [place] [address] Phone Care Team Providers Care Substation Design Draftsperson Name Role Phone Juan Cabral MD Primary Care Provider Encounter Details Date Type Department Care Team (Late st Contact Info) Description 07/30/2024 Results Follow-Up [facility] [address] [place] [address] [place] [id number] Mitul Peace MD [address] [facility] [address] [place] [address] ECG 12 lead Social History Tobacco Use [...] on file Legal 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
[2024-08-13] MEDS: HYDROmorphone HCL INJ (*CRX) 2 MG/ML VIAL 0.5 MG IV PUSH (15:18)
[2024-08-13 21:00] LABS: Glucose Point of Care 185 mg/dl (65-105)
[2024-08-14] MEDS: ACETAMINOPHEN 500 MG TABLET 1000 MG PO (05:52)
[2024-08-14 05:53] VITALS: BP 138/67; PULSE 87; RESP 16; TEMP 36.6; O2SAT 95
[2024-08-14 08:28] LABS: Glucose Point of Care 147 mg/dl (65-105)
[2024-08-14 08:37] LABS: Basophils Percent Auto 0.6 % (0.2-1.2); Eosinophils Absolute Auto 0.2 K/mm3 (0-0.3); Eosinophils Percent Auto 2.5 % (0-4.4); Hematocrit 38.4 % (37.0-47.0); Hemoglobin 12.4 g/dL (12.0-15.0); Immature Granulocyte Absolute 0.01 K/mm3 (0.00-0.031); Immature Granulocyte Percent A 0.1 % (0-0.5); Lymphocytes Absolute Auto 3.08 K/mm3 (0.9-3.2); Mean Corpuscular HGB Conc 32.3 g/dl (32-36); Mean Platelet Volume 9.9 fl (7.4-10.4); Monocytes Absolute Auto 0.4 K/mm3 (0.1-0.6); Monocytes Percent Auto 5.6 % (2.6-8.5); Neutrophils Absolute Auto 3.5 K/mm3 (1.3-6.7); Neutrophils Percent Auto 48.2 % (45.5-73.1); Platelet Count Result 171 k/mm3 (150-375); Red Cell Distribution Width 14.2 % (11.5-14.5); White Blood Count 7.2 K/mm3 (4.5-10.0)
[2024-08-14 08:46] LABS: Alanine Aminotransferase 18 U/L (6-35); Albumin Level 4.5 g/dL (3.5-5.1); Alkaline Phosphatase 94 U/L (38-126); Anion Gap 8 mmol/L (4-12); Aspartate Amino Transferase 29 U/L (14-36); Bilirubin,Total 0.5 mg/dL (0.2-1.3); Blood Urea Nitrogen 10 mg/dL (7-17); Calcium 9.7 mg/dL (8.4-10.2); Carbon Dioxide 23 mmol/L (22-30); Chloride 105 mmol/L (98-107); Estimated CRCL calculation 58 ml/min; Estimated Glomerular Filt Rate 52; Glucose 148 mg/dL (65-110); Potassium 4.6 mmol/L (3.4-5.0); Sodium 136 mmol/L (137-145)
[2024-08-14 10:01] VITALS: PULSE 87
[2024-08-14] MEDS: ROSUVASTATIN 20 MG TABLET PO (10:01)
[2024-08-14] MEDS: METOPROLOL TARTRATE 50 MG TAB 100 MG PO (10:01)
[2024-08-14] MEDS: ISOSORBIDE MONONITRATE 30 MG TAB.ER.24H PO (10:02)
[2024-08-14] MEDS: CLOPIDOGREL BISULFATE 75 MG TABLET PO (10:02)
[2024-08-14] MEDS: RANOLAZINE 500 MG TAB.ER.12H 1000 MG PO ×2 (10:02→21:46)
[2024-08-14] MEDS: lisinopriL 20 MG TABLET 40 MG PO (10:02)
[2024-08-14] MEDS: TOPIRAMATE 25 MG TABLET PO ×2 (10:02→21:46)
[2024-08-14] MEDS: ACETAMINOPHEN 325 MG TABLET 650 MG PO ×2 (11:33→21:49)
[2024-08-14 12:10] LABS: Glucose Point of Care 146 mg/dl (65-105)
[2024-08-14 14:00] VITALS: BP 94/59; PULSE 68; RESP 20; TEMP 35.7; O2SAT 98
--- NOTE | 2024-08-14 16:41 | PM.IMHP ---
H&P: HPI History of Present Illness Date/Time: 08/14/24 16:41 Chief Complaint: Neuro Symptoms/Deficit Narrative: ER-HPI narrative: 64 old female with no prior history of CVA but does have history type 2 diabetes, proximal AFib, coronary artery disease presents to the emergency department for evaluation for short-term memory loss, headache high blood pressure with associated generalized weakness. Patient states that hypertension and headache have been ongoing since yesterday. Patient reports that the short-term mL as has been ongoing for the last few weeks. 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 On physical exam patient has loss of peripheral vision on the left eye which she states is new for her. To further evaluate patient had Head and neck CTA which is concerning for some occlusion of stenosis of cerebral vessel, to further evaluate will do MRI of the brain, patient is already taking Xarelto and on Plavix, as well as Crestor, patient remain clinically stable and no new symptoms patient will be seen by neurologist and further recommendation to follow. Review of Systems Review of Systems: All systems reviewed & are unremarkable except as noted in HPI and below [facility], LAT[facility] Past Medical History Medical History (Updated 08/13/24 @ 17:10 by Crispin Taylor MD) CKD (chronic kidney disease), stage III Heart and renal disease, hypertensive Vitamin B12 deficiency Diabetes mellitus with diabetic neuropathy, without long-term current use of insulin Type 2 diabetes mellitus Chronic anticoagulation Obstructive sleep apnea on CPAP Paroxysmal atrial fibrillation Hypertension Coronary artery disease Status post right coronary artery stent in 2019. Left heart catheterization in December 2020 showed a patent stent with nonocclusive 30% stenosis of the mid RCA. Controlled diabetes mellitus Hyperlipemia Diastolic heart failure Essential hypertension Chest pain Hypothyroidism Tobacco use disorder Surgical History Surgical History S/P ablation of atrial fibrillation History of cholecystectomy History of heart artery stent (2019) Right coronary artery. Status post rotator cuff repair Status post hysterectomy Family History Family History Sibling Patient's sister is in good health Family history of type 2 diabetes mellitus Acute myocardial infarction Sibling Family history of type 2 diabetes mellitus Sibling Family history of type 2 diabetes mellitus Sibling Family history of type 2 diabetes mellitus Sibling Family history of type 2 diabetes mellitus Coronary artery disease involving coronary bypass graft Mother Family history of type 2 diabetes mellitus Acute myocardial infarction Coronary artery disease involving coronary bypass graft Cerebrovascular accident Hypertension Father Liver cancer Lupus Hypertension Social History Social History Social History: Surrogate decision maker: Hola Angel, significant other. Code status: Full code. Smoking packs per day: 0.5 Smoking cigarettes per day: 10.0 Years smoked: 40 Smoking pack-years: 20.00 Smoking status: Former smoker Tobacco type: cigarettes Second hand tobacco smoke exposure: No Smoking end date: 05/19/23 Alcohol intake: never Substance use: never Substance use type: does not use Do You Feel Safe in your Home?: Yes Lack of Transportation: No Lack of Food: Never True Current Housing: I Have Housing Concerned About Future Housing: No Difficulty Paying Gas/Electric Bills: No Difficulty Paying for Meds: No Currently Unemployed: No Education: Bachelor's Degree Difficulty w/ Childcare or Family Care: No Living arrangements: with family Occupation/Education: occupation Gender identity (if verbalized by the patient): Female Sexual Orientation (if Verbalized by the Patient): Straight or Heterosexual Spiritual care concerns: No Meds Home Medications and Allergies Home Medications ?Medication ?Instructions ?Recorded ?Confirmed ?Type rosuvastatin 20 mg tablet (Crestor) 20 mg PO DAILY 04/04/19 08/13/24 History clopidogrel 75 mg tablet (Plavix) 75 mg PO DAILY #30 tabs 04/18/19 08/13/24 Rx nitroglycerin 0.4 mg sublingual 0.4 mg sublingual ONCE PRN Chest 06/04/19 08/13/24 History tablet (Nitrostat) Pain isosorbide mononitrate 30 mg 30 mg PO DAILY #30 tabs 05/18/21 08/13/24 Rx tablet,extended release 24 hr metoprolol tartrate 50 mg tablet 100 mg PO Q12H 02/23/22 08/13/24 History (Lopressor) ranolazine 1,000 mg 1,000 mg PO Q12H 08/04/22 08/13/24 History tablet,extended release,12 hr fluticasone propionate 50 2 spray intranasal BID #16 grams 12/03/23 08/13/24 Rx mcg/actuation nasal spray,suspension (Flonase Allergy Relief) dulaglutide 3 mg/0.5 mL 3 mg subcut WEEKLY 12/18/23 08/13/24 History subcutaneous pen injector (Trulicity) Lasix 20 mg PO .q48 02/26/24 08/13/24 History rivaroxaban 20 mg tablet (Xarelto) 20 mg PO Q24H 02/26/24 08/13/24 History lisinopril 40 mg tablet 40 mg PO DAILY #90 tabs 04/26/24 08/13/24 Rx topiramate 50 mg capsule,extended 50 mg PO DAILY #90 caps 04/26/24 08/13/24 Rx release 24 hr metformin 500 mg tablet See Rx Instructions .Route 05/15/24 08/13/24 Rx .COMPLEX #180 tabs Allergies Allergy/AdvReac Type Severity Reaction Status Date / Time carbamazepine Allergy Unknown Unknown Verified 04/16/24 15:14 Tetanus Vaccines and Toxoid Allergy Unknown Unknown Verified 04/16/24 15:14 tuberculin, purified protein Allergy Unknown Unknown Verified 04/16/24 15:14 deriva adhesive tape Allergy Unknown Verified 04/16/24 15:14 empagliflozin (From Allergy Unknown Verified 04/16/24 15:14 Jardiance) TETANUS TOXOID,FLUID Allergy Unknown Unknown Uncoded 04/16/24 15:14 Vital Signs Vital Signs - 24 hr 08/13/24 16:47 08/13/24 17:02 08/13/24 17:17 Temperature Pulse Rate 81 78 78 Respiratory Rate 22 H 11 L Blood Pressure 199/83 H 157/66 H 157/71 H Pulse Oximetry 91 94 94 Oxygen Delivery 08/13/24 17:47 08/13/24 18:00 08/13/24 21:40 Temperature 36.2 C L Pulse Rate 78 81 77 Respiratory Rate 19 22 H 14 Blood Pressure 121/67 130/107 H 135/54 L Pulse Oximetry 98 100 98 Oxygen Delivery 08/14/24 05:53 08/14/24 10:00 08/14/24 10:01 Temperature 36.6 C Pulse Rate 87 87 Respiratory Rate 16 Blood Pressure 138/67 Pulse Oximetry 95 Oxygen Delivery Room Air 08/14/24 14:00 Temperature 35.7 C L Pulse Rate 68 Respiratory Rate 20 Blood Pressure 94/59 L Pulse Oximetry 98 Oxygen Delivery Exam Narrative: Patient is comfortable, NAD HEENT: eyes are clear and none icteric LUNGS:CTA HEART: RR S1S2 ABD: BS+, Soft and nontender Lower extremities: no edema SKIN: nonjaundiced Neuro: grossly intact. H&P: Results Labs Labs: Short CBC 08/14/24 Range/Units 08:23 WBC 7.2 (4.5-10.0) K/mm3 Hgb 12.4 (12.0-15.0) g/dL Hct 38.4 (37.0-47.0) % Plt Count 171 (150-375) k/mm3 BMP 08/14/24 08:23 Sodium 136 L Potassium 4.6 Chloride 105 Carbon Dioxide 23 BUN 10 Creatinine 1.07 H Glucose 148 H Calcium 9.7 Liver Function 08/14/24 Range/Units 08:23 Total Bilirubin 0.5 (0.2-1.3) mg/dL AST 29 (14-36) U/L ALT 18 (6-35) U/L Alkaline Phosphatase 94 (38-126) U/L Albumin 4.5 (3.5-5.1) g/dL Assessment and Plan Assessment and plan (1) Vision changes: Code(s): H53.9 - Unspecified visual disturbance Status: Acute (2) Type 2 diabetes mellitus: Code(s): E11.9 - Type 2 diabetes mellitus without complications Status: Acute (3) Diabetes mellitus with diabetic neuropathy, without long-term current use of insulin: Code(s): E11.40 - Type 2 diabetes mellitus with diabetic neuropathy, unspecified Status: Acute (4) Controlled diabetes mellitus: Code(s): E11.9 - Type 2 diabetes mellitus without complications Status: Acute (5) Type 2 diabetes mellitus with hyperglycemia: Code(s): E11.65 - Type 2 diabetes mellitus with hyperglycemia Status: Acute (6) Headache: Code(s): R51.9 - Headache, unspecified Status: Acute Plan ER-HPI narrative: 64 old female with no prior history of CVA but does have history type 2 diabetes, proximal AFib, coronary artery disease presents to the emergency department for evaluation for short-term memory loss, headache high blood pressure with associated generalized weakness. Patient states that hypertension and headache have been ongoing since yesterday. Patient reports that the short-term mL as has been ongoing for the last few weeks. 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 On physical exam patient has loss of peripheral vision on the left eye which she states is new for her. To further evaluate patient had Head and neck CTA which is concerning for some occlusion of stenosis of cerebral vessel, to further evaluate will do MRI of the brain, patient is already taking Xarelto and on Plavix, as well as Crestor, patient remain clinically stable and no new symptoms patient will be seen by neurologist and further recommendation to follow. Quality VTE Prophylaxis VTE prophylaxis: pharmacologic ordered Hospitalist [facility] Advance Care Plan I have confirmed that the patient's Advanced Care Plan is present, code status is documented, or surrogate decision maker is listed in patient medical record.: Yes Medication Reconciliation The patient is not eligible for med reconciliation; the patient is in a emergent medical situation where delaying treatment would jeopardize the patients health.: Yes
[2024-08-14] MEDS: RIVAROXABAN 20 MG TABLET PO (17:21)
--- NOTE | 2024-08-14 18:14 | PCRCNOTE ---
Spoke with patient and she wears cpap at home. Does not want to use our machine and nobody bringing in her machine.
[2024-08-14 20:42] VITALS: BP 109/61; PULSE 75; RESP 18; TEMP 36.3; O2SAT 98
[2024-08-14 21:36] LABS: Glucose Point of Care 123 mg/dl (65-105)
[2024-08-15 04:47] VITALS: BP 119/85; PULSE 88; RESP 18; TEMP 36.9; O2SAT 98
[2024-08-15 07:59] LABS: Hematocrit 36.2 % (37.0-47.0); Hemoglobin 11.6 g/dL (12.0-15.0); Mean Corpuscular Hemoglobin 30.9 pg (26-34); Mean Corpuscular Volume 96.3 fl (80-100); Mean Platelet Volume 10.3 fl (7.4-10.4); Platelet Count Result 156 k/mm3 (150-375); Red Blood Count 3.76 M/mm3 (4.2-5.4); Red Cell Distribution Width 14.3 % (11.5-14.5); White Blood Count 5.4 K/mm3 (4.5-10.0)
[2024-08-15 08:00] VITALS: O2SAT 96
[2024-08-15 08:08] LABS: Anion Gap 9 mmol/L (4-12); Blood Urea Nitrogen 12 mg/dL (7-17); Calcium 9.8 mg/dL (8.4-10.2); Carbon Dioxide 25 mmol/L (22-30); Chloride 105 mmol/L (98-107); Estimated CRCL calculation 54 ml/min; Estimated Glomerular Filt Rate 48; Glucose 182 mg/dL (65-110); Magnesium 2.1 mg/dL (1.6-2.3); Potassium 4.8 mmol/L (3.4-5.0); Sodium 139 mmol/L (137-145)
[2024-08-15 08:09] LABS: Glucose Point of Care 185 mg/dl (65-105)
[2024-08-15 08:47] VITALS: BP 127/76
[2024-08-15 08:49] VITALS: PULSE 74
[2024-08-15] MEDS: lisinopriL 20 MG TABLET 40 MG PO (08:49)
[2024-08-15] MEDS: ISOSORBIDE MONONITRATE 30 MG TAB.ER.24H PO (08:49)
[2024-08-15] MEDS: CLOPIDOGREL BISULFATE 75 MG TABLET PO (08:49)
[2024-08-15] MEDS: METOPROLOL TARTRATE 50 MG TAB 100 MG PO (08:49)
[2024-08-15] MEDS: TOPIRAMATE 25 MG TABLET PO (08:50)
[2024-08-15] MEDS: ROSUVASTATIN 20 MG TABLET PO (08:50)
[2024-08-15] MEDS: RANOLAZINE 500 MG TAB.ER.12H 1000 MG PO (08:50)
[2024-08-15] MEDS: FLUTICASONE PROPIONATE 0.05% NA SPR 16 GM BTL (*BKC) 2 SPRAY NASAL (08:58)
[2024-08-15 09:01] VITALS: O2SAT 96
[2024-08-15] MEDS: ACETAMINOPHEN 325 MG TABLET 650 MG PO (10:59)
[2024-08-15 11:34] LABS: Cholesterol 145 mg/dL (0-200); HDL Direct 54 mg/dL; Triglycerides 179 mg/dL (<150)
[2024-08-15 11:45] LABS: LDL Cholesterol Direct 51 mg/dL
[2024-08-15 12:03] LABS: Glucose Point of Care 134 mg/dl (65-105)
[2024-08-15 12:46] LABS: Folic Acid 10.4 ng/mL (2.76->20)
--- NOTE | 2024-08-15 13:19 | P.DS_ITS ---
DS: Admitting Diagnosis Discharge Date 08/15/24 Admitting Diagnosis Neuro Symptoms/Deficit DS: Discharge Diagnosis Discharge Diagnosis (1) Vision changes: Code(s): H53.9 - Unspecified visual disturbance Status: Acute (2) Type 2 diabetes mellitus: Code(s): E11.9 - Type 2 diabetes mellitus without complications Status: Acute (3) Diabetes mellitus with diabetic neuropathy, without long-term current use of insulin: Code(s): E11.40 - Type 2 diabetes mellitus with diabetic neuropathy, unspecified Status: Acute (4) Controlled diabetes mellitus: Code(s): E11.9 - Type 2 diabetes mellitus without complications Status: Acute (5) Type 2 diabetes mellitus with hyperglycemia: Code(s): E11.65 - Type 2 diabetes mellitus with hyperglycemia Status: Acute (6) Headache: Code(s): R51.9 - Headache, unspecified Status: Acute Plan ER-HPI narrative: 64 old female with no prior history of CVA but does have history type 2 diabetes, proximal AFib, coronary artery disease presents to the emergency department for evaluation for short-term memory loss, headache high blood pressu re with associated generalized weakness. Patient states that hypertension and headache have been ongoing since yesterday. Patient reports that the short-term mL as has been ongoing for the last few weeks. 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 On physical exam patient has loss of peripheral vision on the left eye which she states is new for her. To further evaluate patient had Head and neck CTA which is concerning for some occlusion of stenosis of cerebral vessel, to further evaluate will do MRI of the brain, patient is already taking Xarelto and on Plavix, as well as Crestor, patient remain clinically stable and no new symptoms patient will be seen by neurologist and further recommendation to follow. MRI of the brain showed Large acute infarct involving the right temporal lobe and right parietal lobe. patient is already taking Xarelto and Plavix discussed with neurologist, does not recommend any additional anti platelets, patient is clinically stable and her baseline will discharge patient today. DS: Summary Hospital Course Hospital Course: To further evaluate patient had Head and neck CTA which is concerning for some occlusion of stenosis of cerebral vessel, to further evaluate will do MRI of the brain, patient is already taking Xarelto and on Plavix, as well as Crestor, patient remain clinically stable and no new symptoms patient will be seen by neurologist and further recommendation to follow. MRI of the brain showed Large acute infarct involving the right temporal lobe and right parietal lobe. patient is already taking Xarelto and Plavix discussed with neurologist, does not recommend any additional anti platelets, patient is clinically stable and her baseline will discharge patient today. Time Spent with Patient Time attestation: Total time spent providing and/or coordinating discharge services: Exam Narrative: Patient is comfortable, NAD HEENT: eyes are clear and none icteric LUNGS:CTA HEART: RR S1S2 ABD: BS+, Soft and nontender Lower extremities: no edema SKIN: nonjaundiced Neuro: grossly intact. DS: Data Data Completed and Pending Labs on day of discharge: Labs from last 24 hours 08/15/24 08/15/24 08/15/24 11:55 08:06 07:19 WBC 5.4 RBC 3.76 L Hgb 11.6 L Hct 36.2 L MCV 96.3 MCH 30.9 MCHC 32.0 RDW 14.3 Plt Count 156 MPV 10.3 Sodium 139 Potassium 4.8 Chloride 105 Carbon Dioxide 25 Anion Gap 9 BUN 12 Creatinine 1.14 H Estim Creat Clear Calc 54 Estimated GFR 48 L Glucose 182 H POC Capillary Glucose 134 H 185 H Calcium 9.8 Magnesium 2.1 Triglycerides 179 H Cholesterol 145 LDL Cholesterol Direct 51 HDL Direct 54 Vitamin B12 233.0 L Folate 10.4 08/14/24 20:46 WBC RBC Hgb Hct MCV MCH MCHC RDW Plt Count MPV Sodium Potassium Chloride Carbon Dioxide Anion Gap BUN Creatinine Estim Creat Clear Calc Estimated GFR Glucose POC Capillary Glucose 123 H Calcium Magnesium Triglycerides Cholesterol LDL Cholesterol Direct HDL Direct Vitamin B12 Folate Discharge Plan Discharge Attending physician on discharge: Delmis Rubio Consulting providers: Osmani Trivedi; Antione Lane; Jamaal Stevens; Manuela Bach Discharging Clinician: Ezequiel Mon Patient Disposition: Home Activity: as tolerated Diet: heart healthy and diabetic Discharge Instructions: patient to follow up with her primary care provider as soon as possible, patient is instructed if any symptoms worsen to go to nearest ER. patient instructed take her medications as given, control her blood pressure, cholesterol and diab etes to reduce risk of strokes. Patient Instructions: Antibiotic Form Patient Language: Latvian Stand Alone Forms: General Discharge Information Follow-up/Referrals: Juan Cabral MD [Primary Care Provider] - Torsten Doyle MD [Physician] - Discharge Medications: Continued fluticasone propionate [Flonase Allergy Relief] 50 mcg/actuation spray,suspension 2 spray intranasal BID Qty: 16 0RF Rx Instructions: administer into each nostril Xarelto 20 mg tablet 20 mg PO Q24H Lasix 20 mg PO .q48 clopidogrel [Plavix] 75 mg tablet 75 mg PO DAILY Qty: 30 2RF ranolazine 1,000 mg tablet extended release 12 hr 1,000 mg PO Q12H Trulicity 3 mg/0.5 mL pen injector 3 mg subcut WEEKLY isosorbide mononitrate 30 mg tablet extended release 24 hr 30 mg PO DAILY Qty: 30 0RF rosuvastatin [Crestor] 20 mg Tablet 20 mg PO DAILY nitroglycerin [Nitrostat] 0.4 mg Tablet, Sublingual 0.4 mg SUBLINGUAL ONCE PRN (Reason: Chest Pain) metoprolol tartrate [Lopressor] 50 mg tablet 100 mg PO Q12H lisinopril 40 mg tablet 40 mg PO DAILY Qty: 90 2RF topiramate 50 mg capsule,extended release 24hr 50 mg PO DAILY Qty: 90 2RF metformin 500 mg tablet See Rx Instructions .ROUTE .COMPLEX Qty: 180 2RF Dose Instruction: TAKE 1 TABLET BY MOUTH TWICE A DAY Rx Instructions: TAKE 1 TABLET BY MOUTH TWICE A DAY No Action tramadol 50 mg tablet 50 mg PO Q8H PRN (Reason: pain) Qty: 30 0RF Date of admission: 08/13/24 17:11 Primary Care Provider: Juan Cabral Admitting Provider: Delmis Rubio Attending physician on admission: Ezequiel Mon Condition: Stable
== END 2024-08-15 13:37 | disposition home or self-care (01) ==
LOC: ANHED 17:10 → ANH3MEDSUR 08-15 11:09
PROVIDERS: Admitting Provider Internal Medicine; Emergency Provider Emergency Medicine; PCP Family Medicine; Visit Provider Family Medicine
DX: I63.9 Cerebral infarction, unspecified (principal); R51.9 Headache, unspecified; H53.9 Unspecified visual disturbance; R29.701 NIHSS score 1; E11.22 Type 2 diabetes mellitus with diabetic chronic kidney disease; I13.0 Hypertensive heart and chronic kidney disease with heart failure and stage 1 through stage 4 chronic kidney disease, or unspecified chronic kidney disease; N18.30 Chronic kidney disease, stage 3 unspecified; I50.32 Chronic diastolic (congestive) heart failure; E11.40 Type 2 diabetes mellitus with diabetic neuropathy, unspecified; E11.65 Type 2 diabetes mellitus with hyperglycemia; I25.10 Atherosclerotic heart disease of native coronary artery without angina pectoris; I48.0 Paroxysmal atrial fibrillation; H54.61 Unqualified visual loss, right eye, normal vision left eye; G47.33 Obstructive sleep apnea (adult) (pediatric); E03.9 Hypothyroidism, unspecified; Z87.891 Personal history of nicotine dependence; Z79.01 Long term (current) use of anticoagulants; Z79.02 Long term (current) use of antithrombotics/antiplatelets; Z79.84 Long term (current) use of oral hypoglycemic drugs; Z79.85 Long-term (current) use of injectable non-insulin antidiabetic drugs; Z79.899 Other long term (current) drug therapy; Z95.5 Presence of coronary angioplasty implant and graft; Z98.890 Other specified postprocedural states; Z99.89 Dependence on other enabling machines and devices
CPT/HCPCS: 36415; 70450; 70496; 70498; 70553; 71045; 80048; 80053; 80061; 82607; 82746; 82948; 83735; 84484; 85025; 85027; 85610; 85730; 93005; 96374; 99285; A9270; A9577; G0378; J1171; Q9967

== ENCOUNTER 2024-10-09 00:53 | Day surgery (SDC) | payer BC, SELFPAY ==
[2024-10-08 12:24] VITALS: BMI 33.2
[2024-10-09] VITALS (11 sets, daily range): BP systolic 124–196; BP diastolic 73–101; PULSE 66–79; RESP 14–25; TEMP 36.6; O2SAT 92–100
--- OUTSIDE RECORDS SUMMARY | 2024-10-09 00:58 | XMS_ITS | Referral Summary ---
Author Organization [facility] [address] Address [address] [place] [address] Phone Care Team Providers Care Glass Polisher Name Role Phone Juan Cabral MD Primary Care Provider Encounters Date Type Department Care Team Description 09/27/2024 Telephone [facility] Cardiology at [address] [place] [address] Greg Nichols MD 09/26/2024 Results Follow-Up [facility] Cardiology [address] [place] [address] 8th [place] [address] [place] [address] Ana [place] NP ECG 12 lead 09/26/2024 11:30 AM CDT Office Visit [facility] Cardiology [address] [place] [address] 8th [place] [address] [place] [address] Ana [place] NP Atrial fibrillation, unspecified type (HCC) (Primary Dx); Abnormal stress test 08/19/2024 Telephone [facility] Cardiology [address] [address] [address] [place] [address] Greg Nichols MD 08/13/2024 12:45 PM CDT Office Visit [facility] at [address] [address] Nova Pryor PA Confusion (Primary Dx); Dizziness; Hypertension, essential; Elevated blood pressure reading 07/30/2024 Results Follow-Up [facility] Cardiology [address] [facility] 8th [place] [address] [place] [address] Mitul Peace MD ECG 12 lead 07/10/2024 Results Follow-Up [facility] Cardiology [address] [place] [address] Britni Frazier NP [facility] Mobile Cardiac Telemetry Event Monitor from Last 3 Months Allergies Active Allergy [...] 1 tablet (40 mg total) by mouth director home health before breakfast 9 Active dulaglutide (Trulicity) 3 [...] 20 mg tabletIndications :PAF (paroxysmal atrial fibrillation) (HCC),Coronary artery disease of [place] artery of [place] heart with stable angina pectoris Take 1 [...] mouth daily 90 tablet 2 4 Active metoprolol (LOPRESSOR) 100 mg tabletIndications :Premature ventricular contraction,PAF (paroxysmal atrial fibrillation) ([facility]) Take 1 tablet by mouth twice daily 180 tablet 2 5 Active ranolazine ER (RANEXA) 1,000 mg 12 hr tabletIndications :Coronary artery disease of [place] artery of [place] heart with stable angina pectoris Take 1 [...] 24 hr tabletIndications :Coronary artery disease of [place] artery of [place] heart with stable angina pectoris Take 1 tablet (60 mg total) by mouth daily 90 tablet 3 5 05/31/19 26 Active rosuvastatin (CRESTOR) 20 mg tabletIndications :Hypertension associated with diabetes ([facility]),Acceleratin g angina ([facility]) Take 1 tablet by mouth once daily 90 tablet 1 5 Active Xarelto 20 mg tabletIndications :Paroxysmal atrial fibrillation ([facility]) Take 1 tablet by mouth once daily 90 tablet 5 Active Active Problems Problem Noted Date Diagnosed Date dedicated intermodal truck driver current use of anticoagulant therapy 0 07/30/2024 Former tobacco use 04/01/2024 Chronic obstructive pulmonary disease, unspecifi ed 01/01/2024 Nonrheumatic aortic valve stenosis 09/01/2023 Atrial fibrillation 08/01/2022 Assessment & Plan (09/26/2024 11:56 AM CDT): -Paroxysmal atrial fibrillation s/p PVI cryoablation on 08/01/2022 -Multaq was discontinued following ablation -She continues to do well with no known AF recurrence in the past year -Continue metoprolol 100 mg BID -Continue anticoagulation indefinitely [id number] score 6, currently taking Xarelto 20 mg daily -She will follow up Dr Nichols to schedule JACINTO in setting of recent stroke Assessment & Plan (09/06/2022 2:31 PM CDT): Paroxysmal atrial fibrillation s/p PVI cryoablation on 08/01/2022 Multaq was discontinued following ablation No AF recurrence Continue metoprolol Continue Xarelto anticoagulation ([id number] score 4) Encouraged lifestyle modifications including regular [...] artery disease of n ative artery of [place] heart with stable angina pectoris 04/18/2019 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 Assessment & Plan (02/15/2018 5:22 PM TRAINING ANALYST): Patient coughing x2 weeks is clear sputum [...] benign recommendation at this time try meclizine [id number]-tkf-[id number] still having disease later in the week probable for the make a referral are do imaging I do not think is indicated at this time. History of atrial fibrillation without current m edication 11/04/2017 Assessment & Plan (09/14/2018 9:55 AM CDT): No evidence of atrial fibrillation today. Assessment & Plan (11/04/2017 12:30 PM CDT): Patient proximal atrial fibrillation September 2016 admitted to [facility]. She had a follow-up cardiology at [facility] U Xarelto was recommend as well as diltiazem. Patient is on the the medicines at this time she informs me that follow-up visit with local golf cart maker discontinue medication because was a brief episode [...] . Assessment & Plan (04/11/2018 4:37 PM TRAINING ANALYST): Diabetes is improving with treatment. Continue current [...] functioning well. Plans referred this patient to environmental marketing representative, start on metformin and she is instructed [...] no coronary artery disease found. Patient admission [facility] 1998 for atypical chest pain was thought [...] on file Legal Sex Female 8:01 PM TRAINING ANALYST Gender Identity Female 08/02/2020 7:06 PM CDT Sexual Orientation Not on file Last Filed Vital Signs Vital Sign Reading Time Taken Comments Blood Pressure 153/85 09/26/2024 11:13 AM CDT Pulse 72 09/26/2024 11:13 AM CDT Temperature 36.8 C (98.3 F) 08/13/2024 12:46 PM CDT Respiratory Rate 20 08/13/2024 12:46 PM CDT Oxygen Saturation 99% 09/26/2024 11:13 AM CDT Inhaled Oxygen Concentration - - Weight 101.2 kg (223 lb) 09/26/2024 11:13 AM CDT Height 172.7 cm (5' 8) 09/26/2024 11:13 AM CDT Body Mass Index 33.91 09/26/2024 11:13 AM CDT Plan of Treatment Not on file Medical Devices Implanted Type Area Manager Digital Ad Operations Device Identifier Shelf Expiration Date Model / Serial / Lot [employer] Vascade Mvp 6-12fr Venous Closure [id number] - [id number] - [id number] Implanted:Qty : 1 on 08/01/2022 by Mitul Peace MD at [facility] Collagen Right: Femoral Vein [employer] 04/19/2024 800-612C- 10U / [id number] / [id number] [employer] Vascade Mvp 6-12fr Venous Closure [id number] - [id number] - [id number] Implanted:Qty : 1 on 08/01/2022 by Mitul Peace MD at [facility] Collagen Left: Femoral Vein [employer] 04/19/2024 800-612C- 10U / [id number] [id number] / [id number] [employer] Vascade Mvp 6-12fr Venous Closure [id number] - [id number] - [id number] Implanted:Qty : 1 on 08/01/2022 by Mitul Peace MD at [facility] Collagen Left: Femoral Vein [employer] 04/19/2024 800-612C- 10U / [id number] / [id number] Stent Stent Right: Coronary Procedures Procedure Name Priority Date/Time Associated Diagnosis Comments ECG 12-LEAD Routine 09/26/2024 11:08 AM CDT Atrial fibrillation, unspecified type (HCC) EGFR STAT 05/24/2024 11:00 AM TRAINING ANALYST LIPID PANEL Routine 11/09/2023 2:32 PM CDT HEMOGLOBIN A1C Routine 09/19/2018 9:58 AM CDT ALBUMIN CREATININE RATIO, URINE Routine 09/19/2018 9:58 AM CDT from Last 3 Months or Most Recently Relevant to Health Maintenance Results * ECG 12 lead (09/26/2024 11:08 AM CDT) Ana [place] MEAT SERVICE TEAM MEMBER ECG ORDERABLES Edited Re sult - Final * (ABNORMAL) eGFR (05/24/2024 11:00 AM TRAINING ANALYST) eGFR 57(L) >=60 mL/min/1. 73 m2 Comment: [...] Inclusion of Race in Diagnosing Kidney Disease, SUKHWINDERN 2020). The CKD-EPI equation should not be used for patients with unstable renal function and has not been validated in children and those over 70. Current interpretive data was last reviewed 2021. Blood 05/24/2024 11:0 0 AM TRAINING ANALYST 05/24/2024 11:03 AM TRAINING ANALYST Jesus Owens MD LAB BLOOD ORDERABLES Final Resul t NIDIA EATON [address] Department [place] [address] * Lipid panel (11/09/2023 2:32 PM CDT) SCRIBED Cholesterol, Total 117 <200 [facility] SCRIBED HDL 47 >40 [facility] SCRIBED LDL 40 <100 [facility] SCRIBED Triglycerides 187 <150 [facility] Blood Juana Blood MD LAB BLOOD ORDERABLES Edit ed Result - Final Performing Organization Address City/[facility]/ZIP Co de Phone Number [facility] * [...] Site ID: [place] Name: Jenifer Anaya Address: [address] [address] Director: Jacinto Pizano D.O., MPH us Jacinto Palacio MD LAB URINE ORDERABLES Final Result Performing Organization Address City/[facility] Co de Phone Number [place] Aceves * (ABNORMAL) Hemoglobin A1c (09/19/2018 9:58 AM CDT) Hgb A1C 6.9(H) <5.7 % of total Hgb [facility] LAYNE Comment: For someone without known diabetes, a [...] Site ID: [place] Name: Jenifer Anaya Address: [address] [address] Director: Jacinto Pizano D.O., MPH us Jacinto Palacio MD LAB BLOOD ORDERABLES Final Result Performing Organization Address City/[facility] Co de Phone Number [place] Aceves from Last 3 Months or Most Recently Relevant to Health Maintenance Insurance [facility] CHOICE PLUS [facility] HMO/PPO Address: [address] [address] [place] [address] [facility] Advance Directives For more information, please contact: [phone] * Full Code (Latest Code Status on File) Date Activated Date Inactivated Comments 08/01/2022 8:49 PM 08/02/2022 4:13 PM Care Teams Glass Polisher Relationship Specialty Start Date End Date Juan Cabral MD [address] [place], [place] [id number] PCP - General Family Medicine 03/28/19
--- OUTSIDE RECORDS SUMMARY | 2024-10-09 00:58 | XMS_ITS | Encounter Summary ---
Author Organization [facility] Address [address] [place] [address] Phone Care Team Providers Care Sanding Machine Tender Automatic Name Role Phone Juan Cabral MD Primary [...] on file Legal Sex Female 8:01 PM PAPER SALES MANAGER Gender Identity Female 08/02/2020 7:06 PM CDT [...] on filedocumented in this encounter Care Teams Sanding Machine Tender Automatic Relationship Specialty Start Date End Date Juan Cabral MD [address] [facility] [address] [place] [address] PCP - General Family Medicine 03/28/19 documented as of this encounter
--- OUTSIDE RECORDS SUMMARY | 2024-10-09 00:58 | XMS_ITS | Encounter Summary ---
Author Organization [facility] Address [address] [place] [address] Phone Care Team Providers Care Supervisor Covering And Lining Name Role Phone Juan Cabral MD Primary [...] on file Legal Sex Female 8:01 PM HOSPITAL CLEANER Gender Identity Female 08/02/2020 7:06 PM CDT [...] on filedocumented in this encounter Care Teams Supervisor Covering And Lining Relationship Specialty Start Date End Date Juan Cabral MD [address] [facility] [address] [facility] [address] [place] [id number] PCP - General Family Medicine 03/28/19 documented as of this encounter
--- OUTSIDE RECORDS SUMMARY | 2024-10-09 00:58 | XMS_ITS | Encounter Summary ---
Author Organization [facility] Address [address] [place] [address] Phone Care Team Providers Care Fall Internship Name Role Phone Juan Cabral MD Primary [...] on file Legal Sex Female 8:01 PM GO CART MECHANIC Gender Identity Female 08/02/2020 7:06 PM CDT [...] on filedocumented in this encounter Care Teams Fall Internship Relationship Specialty Start Date End Date Juan Cabral MD [address] [facility] [address] [facility] [address] [place] [address] PCP - General Family Medicine 03/28/19 documented as of this encounter
--- OUTSIDE RECORDS SUMMARY | 2024-10-09 00:58 | XMS_ITS | Clinical Summary ---
Author Organization [facility] [address] Address [address] [place] [address] Phone Care Team Providers Care Associate Director Of Development Name Role Phone Juan Cabral MD Primary [...] tablet (40 mg total) by mouth director of early childhood education before breakfast 9 Active dulaglutide (Trulicity) 3 [...] 20 mg tabletIndications :PAF (paroxysmal atrial fibrillation) ([facility]),Coronary artery disease of [place] artery of [place] heart with stable angina pectoris Take 1 [...] tabletIndications :Premature ventricular contraction,PAF (paroxysmal atrial fibrillation) ([facility]) Take 1 tablet by mouth twice daily 180 tablet 2 5 Active ranolazine ER (RANEXA) 1,000 mg 12 hr tabletIndications :Coronary artery disease of [place] artery of [place] heart with stable angina pectoris Take 1 [...] 24 hr tabletIndications :Coronary artery disease of [place] artery of [place] heart with stable angina pectoris Take 1 tablet (60 mg total) by mouth daily 90 tablet 3 5 05/31/19 26 Active rosuvastatin (CRESTOR) 20 mg tabletIndications :Hypertension associated with diabetes ([facility]),Acceleratin g angina (HCC) Take 1 tablet by mouth once daily 90 tablet 1 5 Active Xarelto 20 mg tabletIndications :Paroxysmal atrial fibrillation (HCC) Take 1 tablet by mouth once daily 90 tablet 5 Active Active Problems Problem Noted Date Diagnosed Date penitentiary current use of anticoagulant therapy 0 07/30/2024 [...] metoprolol 100 mg BID -Continue anticoagulation indefinitely [id number] score 6, currently taking Xarelto 20 mg daily -She will follow up Dr Nichols to schedule JACINTO in setting of recent stroke Assessment & Plan (09/06/2022 2:31 PM CDT): Paroxysmal atrial fibrillation s/p PVI cryoablation on 08/01/2022 Multaq was discontinued following ablation No AF recurrence Continue metoprolol Continue Xarelto anticoagulation ([id number] score 4) Encouraged lifestyle modifications including regular [...] artery disease of n ative artery of [place] heart with stable angina pectoris 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 Assessment & Plan (02/15/2018 5:22 PM CORRESPONDENCE REVIEW CLERK): Patient coughing x2 weeks is clear sputum [...] benign recommendation at this time try meclizine fcii-zpu-hjrgrsl still having disease later in the week probable for the make a referral are do imaging I do not think is indicated at this time. History of atrial fibrillation without current m edication 11/04/2017 Assessment & Plan (09/14/2018 9:55 AM CDT): No evidence of atrial fibrillation today. Assessment & Plan (11/04/2017 12:30 PM CDT): Patient proximal atrial fibrillation September 2016 admitted to [facility]. She had a follow-up cardiology at [facility] U Xarelto was recommend as well as diltiazem. Patient is on the the medicines at this time she informs me that follow-up visit with local hygiene teacher discontinue medication because was a brief episode [...] . Assessment & Plan (04/11/2018 4:37 PM CORRESPONDENCE REVIEW CLERK): Diabetes is improving with treatment. Continue current [...] functioning well. Plans referred this patient to nurses educator, start on metformin and she is [...] getting computer download software from the glucometer [employer]. I will see this patient back in [...] none since that time. Paroxysmal atrial fibrillation ([facility]) 017 Assessment & Plan (11/04/2017 12:24 PM [...] coronary artery disease found. Patient admission [facility] 1998 for atypical chest pain was thought to be GERD. Resolved Problems Problem Noted Date Diagnosed Date Resolved Date Preventative health care 11/04/2017 Palpitations 10/05/2016 11/04/2017 Encounters Date Type Department Care Team Description 09/27/2024 Telephone [facility] Cardiology at [address] [place] [address] Greg Nichols MD 09/26/2024 11:30 AM CDT Office Visit [facility] Cardiology [facility] 8th [place] [address] [place] [address] Ana [place] NP Atrial fibrillation, unspecified type (HCC) (Primary Dx); Abnormal stress test 09/26/2024 Results Follow-Up [facility] Cardiology [address] [place] [address] 8th [place] [address] [place] [address] Ana [place] NP ECG 12 lead 08/19/2024 Telephone [facility] Cardiology [address] [place] [address] [address] [place] [address] Greg Nichols MD 08/13/2024 12:45 PM CDT Office Visit [facility] Medical [facility] Care at [address] [address] Nova Pryor PA Confusion (Primary Dx); Dizziness; Hypertension, essential; Elevated blood pressure reading 07/30/2024 Results Follow-Up [facility] Cardiology [address] [place] [address] 8th [place] [address] [place] [address] Mitul Peace MD ECG 12 lead 07/10/2024 Results Follow-Up [facility] Cardiology [address] [place] [address] [address] [place] [address] Britni Frazier NP [facility] Mobile Cardiac Telemetry Event Monitor from Last 3 Months Immunizations Immunization Administration Dates Next Due Moderna SARS-CoV-2 Monovalent Vaccination (12+ Y RS) 03/27/2021 Surgical History Surgery Date Site/Laterality Comments ROTATOR CUFF REPAIR Left CHOLECYSTECTOMY HYSTERECTOMY CARDIAC CATHETERIZATION 05/24/2024 N/A Procedure: LEFT HEART CATHETERIZATION WITH CORONARY ANGIOGRAPHY AND WITH OR WITHOUT LEFT VENTRICULOGRAM [id number]; Surgeon: Jesus Owens MD; Location: [facility]ARDIAC [facility]; Service: Cardiovascular; Laterality: N/A; ANGIOPLASTY Medical History [...] artery disease of n ative artery of ek[place] heart with stable angina pectoris Chronic bronchitis [...] on file Legal Sex Female 8:01 PM CORRESPONDENCE REVIEW CLERK Gender Identity Female 08/02/2020 7:06 PM CDT [...] 09/26/2024 11:13 AM CDT Plan of Treatment Health Maintenance Due [...] 11/08/2024 11/09/2023, 08/18, 09/08/2022, Additional history exists Influenza Vaccine (#1) 2024 , 01/23/2023, 12/30/2021, Additional history exists eGFR 05/24/2025 05/24/2024, 07/18, 07/29/2022, Additional history exists Medical Devices Implanted Type Area Music Producer Device Identifier Shelf Expiration Date Model / Serial / Lot [employer] Vascade Mvp 6-12fr Venous Closure [id number] - [id number] - [id number] Implanted:Qty : 1 on 08/01/2022 by Mitul Peace MD at [facility] Collagen Right: Femoral Vein [employer] 04/19/2024 800-612C- 10U / [id number] / [id number] [employer] Vascade Mvp 6-12fr Venous Closure [id number] - [id number] - [id number] Implanted:Qty : 1 on 08/01/2022 by Mitul Peace MD at [facility] Collagen Left: Femoral Vein [employer] 04/19/2024 800-612C- 10U / [id number] 09B / [id number] [employer] Vascade Mvp 6-12fr Venous Closure [id number] - [id number] - [id number] Implanted:Qty : 1 on 08/01/2022 by Mitul Peace MD at [facility] Collagen Left: Femoral Vein [employer] 04/19/2024 800-612C- 10U / [id number] [id number] / [id number] Stent Stent Right: Coronary Procedures Procedure Name Priority Date/Time Associated Diagnosis Comments ECG 12-LEAD Routine 09/26/2024 11:08 AM CDT Atrial fibrillation, unspecified type (HCC) EGFR STAT 05/24/2024 11:00 AM CORRESPONDENCE REVIEW CLERK LIPID PANEL Routine 11/09/2023 2:32 PM CDT HEMOGLOBIN A1C Routine 09/19/2018 9:58 AM CDT ALBUMIN CREATININE RATIO, URINE Routine 09/19/2018 9:58 AM CDT from Last 3 Months or Most Recently Relevant to Health Maintenance Results * ECG 12 lead (09/26/2024 11:08 AM CDT) us Ana [place] MEDICAL BILLING SERVICE ECG ORDERABLES Edited Re sult - Final * (ABNORMAL) eGFR (05/24/2024 11:00 AM CORRESPONDENCE REVIEW CLERK) eGFR 57(L) >=60 mL/min/1. 73 m2 Comment: [...] reviewed 2021. Blood 05/24/2024 11:0 0 AM CORRESPONDENCE REVIEW CLERK 05/24/2024 11:03 AM CORRESPONDENCE REVIEW CLERK Jesus Owens MD LAB BLOOD ORDERABLES Final Resul t NIDIA [address] [address] Department [place] [address] * Lipid panel (11/09/2023 2:32 PM CDT) Pathologist [facility] SCRIBED Cholesterol, Total 117 <200 [facility] SCRIBED HDL 47 >40 [facility] SCRIBED LDL 40 <100 [facility] SCRIBED Triglycerides 187 <150 [facility] Blood us Juana Blood MD LAB BLOOD ORDERABLES Edit ed Result - Final [facility] * Albumin Creatinine Ratio, Urine (09/19/2018 9:58 AM CDT) Creatinine, ur 39 20 - 275 mg/dL [facility] Microalbumin, ur <0.2 See Note: mg/dL [facility] [place] Comment: Reference Range: Reference Range Not established Microalbumin/creat ratio NOTE <30 mcg/mg creat [facility] [place] Comment: The microalbumin value is less than [...] 9:58 AM CDT 09/19/2018 9:59 AM CDT [facility] - 09/21/2018 11:53 AM CDT FASTING:YES FASTING: YES Resulting Agency Comment Performing Organization Information: Site ID: [email or web address] Name: [email or web address] Address: [address] [facility] [place] [address] Director: Jacinto Pizano D.O., MPH Jacinto Palacio MD LAB URINE ORDERABLES Final Result [facility] - [place], [place] * (ABNORMAL) Hemoglobin A1c (09/19/2018 9:58 AM CDT) Hgb A1C 6.9(H) <5.7 % of total Hgb [facility] Comment: For someone without known diabetes, a [...] Site ID: ROVERTO Name: Jenifer Anaya Address: [address] [address] Director: Jacinto Pizano D.O., MPH Jacinto Palacio MD LAB BLOOD ORDERABLES Final Result [facility] [place] from Last 3 Months or Most Recently Relevant to Health Maintenance Insurance [facility] CHOICE PLUS [place] [employer] [place] Advance Directives For more information, please contact: [phone] * Full Code (Latest Code Status on File) Date Activated Date Inactivated Comments 08/01/2022 8:49 PM 08/02/2022 4:13 PM Care Teams Associate Director Of Development Relationship Specialty Start Date End Date Juan Cabral MD [address] [facility] [address] [place] [address] PCP - General Family Medicine 03/28/19
--- OUTSIDE RECORDS SUMMARY | 2024-10-09 00:58 | XMS_ITS | Continuity of Care Document ---
Author Organization [facility] Address [address] [place] [id number] Phone Care Team Providers Care Medical Device Sales Consultant Name Role Phone Wood PT, DPT, Mable Unavailable Unavailabl e Procedures Procedure Date Therapeutic Exercise Manual Therapy Neuromuscular Re-Ed Neuromuscular Re-Ed Manual Therapy Therapeutic Exercise Neuromuscular Re-Ed Manual Therapy Therapeutic Exercise Manual Therapy Neuromuscular Re-Ed Therapeutic Exercise Neuromuscular Re-Ed Therapeutic Exercise Manual Therapy Neuromuscular Re-Ed Therapeutic Exercise Manual Therapy Neuromuscular Re-Ed Manual Therapy Therapeutic Exercise Neuromuscular Re-Ed Therapeutic Exercise Manual Therapy Neuromuscular Re-Ed Therapeutic Exercise Manual Therapy Manual Therapy Neuromuscular Re-Ed Therapeutic Exercise Therapeutic Exercise Manual Therapy Neuromuscular Re-Ed Manual Therapy Therapeutic Exercise Neuromuscular Re-Ed Therapeutic Exercise Neuromuscular Re-Ed Manual Therapy Therapeutic Exercise PT Evaluation Neuromuscular Re-Ed Manual Therapy Screening HEP Follow Up Neuromuscular Re-Ed Therapeutic Exercise Manual Therapy Therapeutic Exercise Neuromuscular Re-Ed Manual Therapy Manual Therapy Therapeutic Exercise Neuromuscular Re-Ed Manual Therapy Neuromuscular Re-Ed Therapeutic Exercise Manual Therapy Therapeutic Exercise Neuromuscular Re-Ed Neuromuscular Re-Ed Manual Therapy Therapeutic Exercise Neuromuscular Re-Ed Therapeutic Exercise Manual Therapy Therapeutic Exercise Manual Therapy Neuromuscular Re-Ed Neuromuscular Re-Ed Therapeutic Exercise Manual Therapy Manual Therapy Neuromuscular Re-Ed Therapeutic Exercise Therapeutic Exercise Neuromuscular Re-Ed Manual Therapy Therapeutic Exercise Manual Therapy Neuromuscular Re-Ed Manual Therapy Neuromuscular Re-Ed Therapeutic Exercise Therapeutic Exercise Neuromuscular Re-Ed Manual Therapy Neuromuscular Re-Ed Therapeutic Exercise Manual Therapy Manual Therapy Therapeutic Exercise Neuromuscular Re-Ed Therapeutic Exercise Neuromuscular Re-Ed Manual Therapy Manual Therapy Therapeutic Exercise Neuromuscular Re-Ed Neuromuscular Re-Ed Therapeutic Exercise Manual Therapy Neuromuscular Re-Ed Therapeutic Exercise Manual Therapy Manual Therapy Hot or Cold Pack Neuromuscular Re-Ed Therapeutic Exercise Neuromuscular Re-Ed Manual Therapy Therapeutic Exercise Therapeutic Exercise Manual Therapy Neuromuscular Re-Ed Hot or Cold Pack Therapeutic Exercise Manual Therapy Neuromuscular Re-Ed Hot or Cold Pack Hot or Cold Pack Therapeutic Exercise Neuromuscular Re-Ed Manual Therapy Neuromuscular Re-Ed Therapeutic Exercise Manual Therapy Hot or Cold Pack Neuromuscular Re-Ed Manual Therapy Therapeutic Exercise Hot or Cold Pack Hot or Cold Pack Therapeutic Exercise Manual Therapy Therapeutic Exercise Manual Therapy Hot or Cold Pack Therapeutic Exercise Manual Therapy Hot or Cold Pack Therapeutic Exercise Manual Therapy Hot or Cold Pack Therapeutic Exercise Manual Therapy Hot or Cold Pack Therapeutic Exercise Manual Therapy DKSA PT Evaluation Therapeutic Exercise Neuromuscular Re-Ed Advance Directives Directive Yes / No Effective Date File Name No Information Encounters Encounter Description Practice Location Reason(s) For Visit Diagnoses Date Provider Providers Copied on Encounter [facility], [address] [facility], [place], [place], [id number], [place] tel:[phone] [facility] No Information Nov- 3201 5 [facility]. . Referring Provider: Vaughn Woods [facility] [address], [place], [address]. tel:[phone] [facility], [address], [place], [place], [id number], tel:[phone] [facility] No Information Sep-2 1-201 5 Gamaliel Bee. . Referring Provider: Vaughn Woods [address] [address], [place], [address]. tel:[phone] [facility], [address] [address], [place], [place], [id number], tel:[phone] [facility] No Information Sep-1 7-201 5 Rodo Feliberto. . Referring Provider: Vaughn Woods [address] [address], [place], [address]. tel:[phone] [facility], [address], [id number], [place] tel:[phone] [facility] No Information Sep-1 5-201 5 Rodo Leydient. . Referring Provider: Vaughn Woods [address] [address], [place], [address]. tel:[phone] [facility], [address], [id number], [place] tel:[phone] [facility] No Information Sep-1 0-201 5 Wood Mable. . Referring Provider: Vaughn Woods [address] [address], [place], [address]. tel:[phone] [facility], [address], [id number], tel:[phone] [facility] No Information Sep-0 8-201 5 Rodo Vincent. . Referring Provider: Vaughn Woods [address] [address], [place], [address]. tel:[phone] [facility], [address], [id number], [place] tel:[phone] [facility] No Information Sep-0 3-201 5 Wood Mable. . Referring Provider: Vaughn Woods [address] [address], [place], [address]. tel:[phone] [facility], [address] [address], [place], [place], [id number], tel:[phone] [facility] No Information Sep-0 1-201 5 Rodofrancia Dao. . Referring Provider: Vaughn Woods [address] [address], [place], [address]. tel:[phone], [address], [id number], tel:[phone] [facility] No Information Oct-2 8-201 5 Wood Mable. . Referring Provider: Vaughn Woods [address] [address], [place], [address]. tel:[phone] [facility], [address] [address], [place], [place], [id number], tel:[phone] [facility] No Information Oct-2 6-201 5 Wood Mable. . Referring Provider: Vaughn Woods [address] [address], [place], [address]. tel:[phone] [facility], [address], [id number], [place] tel:[phone] [facility] No Information Oct-2 4-201 5 Gamaliel Bee. . Referring Provider: Vaughn Woods [address] [address], [place], [address]. tel:[phone], [address], [id number], tel:[phone] [facility] No Information Oct-2 0-201 5 Wood Mable. . Referring Provider: Vaughn Woods [address] [address], [place], [address]. tel:[phone] [facility], [address] [address], [place], [place], [id number], tel:[phone] [facility] No Information Oct-1 7-201 5 Wood Mable. . Referring Provider: Vaughn Woods [address] [address], [place], [address]. tel:[phone] [facility] [facility], [address], [id number], [place] tel:[phone] [facility] Shoulder Impingment SyndromeShoulder PainOther affections of shoulder region, not elsewhere classifiedPain in joint involving shoulder region 5 Jason Akins. . Referring Provider: Vaughn Woods [address] [address], [place], [address]. tel:[phone] [facility], [address], [id number], [place] tel:[phone] [facility] No Information 5 Josiah High. . Referring Provider: Physician Edwards. [employer] [facility], [address], [id number], [place] tel:[phone] [facility] Knee PainPain in joint involving lower leg 5 Gamaliel Bee. . Referring Provider: Vaughn Woods [address] [address], [place], [address]. tel:[phone] [facility], [address], [id number], [place] tel:[phone] [facility] knee surgery post op (chief complaint) No Information 4 Gamaliel Bee. . Referring Provider: Vaughn Woods [address] [address], [place], [address]. tel:[phone] [facility] [address], [id number], [place] tel:[phone] [facility] knee surgery post op (chief complaint) No Information 4 Gamaliel Bee. . Referring Provider: Vaughn Woods [address] [address], [place], [address]. tel:[phone] [facility], [address], [id number], [place] tel:[phone] [facility] knee surgery post op (chief complaint) No Information Dec-1 2-201 4 Tracy Bee. . Referring Provider: Vaughn Woods [address] [address], [place], [address]. tel:[phone], [address] [place] [address], [id number], tel:[phone] [facility] knee surgery post op (chief complaint) No Information Dec-1 0-201 4 Gamaliel Bee. . Referring Provider: Vaughn Woods [address] [address], [place], [address]. tel:[phone], [address] [place] [address], [id number], tel:[phone] [facility] knee surgery post op (chief complaint) No Information Dec-0 8-201 4 Gamaliel Bee. . Referring Provider: Vaughn Woods [address] [address], [place], [address]. tel:[phone], [address], [id number], [place] tel:[phone] [facility] knee surgery post op (chief complaint) No Information Dec-0 5-201 4 Tracy Bee. . Referring Provider: Vaughn Woods [address] [address], [place], [address]. tel:[phone], [address], [id number], [place] tel:[phone] [facility] knee surgery post op (chief complaint) No Information Dec-0 3-201 4 Gamaliel Bee. . Referring Provider: Vaughn Woods [address] [address], [place], [address]. tel:[phone], [address], [id number], tel:[phone] [facility] knee surgery post op (chief complaint) No Information Dec-0 1-201 4 Gamaliel Bee. . Referring Provider: Vaughn Woods [address] [address], [place], [address]. tel:[phone], [address], [id number], tel:[phone] [facility] knee surgery post op (chief complaint) No Information - 4 Gamaliel Bee. . Referring Provider: Vaughn Woods [address] [address], [place], [address]. tel:[phone] [facility], [address], [id number], tel:[phone] [facility] knee surgery post op (chief complaint) No Information 4 Gamaliel Bee. . Referring Provider: Vaughn Woods [address] [address], [place], [address]. tel:[phone], [address], [id number], [place] tel:[phone] [facility] knee surgery post op (chief complaint) No Information 4 Julián Martell . , [place]. Referring Provider: Vaughn Woods [address] [address], [place], [address]. tel:[phone], [address], [id number], [place] tel:[phone] [facility] knee surgery post op (chief complaint) No Information - 4 Tracy Bee. . Referring Provider: Vaughn Woods [address] [address], [place], [address]. tel:[phone], [address], [id number], tel:[phone] [facility] knee surgery post op (chief complaint) No Information 2- 4 Gamaliel Bee. . Referring Provider: Dario Nuber, [address] [address], [place], [address]. tel:[phone], [address], [id number], tel:[phone] [facility] knee surgery post op (chief complaint) No Information Nov-1 0-201 4 Tracy Bee. . Referring Provider: Vaughn Woods [address] [address], [place], [address]. tel:[phone] [facility], [address], [id number], [place] tel:[phone] [facility] knee surgery post op (chief complaint) No Information Nov-0 7-201 4 Tracy Bee. . Referring Provider: Vaughn Woods [address] [address], [place], [address]. tel:[phone], [address], [id number], [place] tel:[phone] [facility] knee surgery post op (chief complaint) No Information Jan-0 5-201 4 Gamaliel Bee. . Referring Provider: Vaughn Woods [address] [address], [place], [address]. tel:[phone], [address], [id number], tel:[phone] [facility] knee surgery post op (chief complaint) No Information Dec-2 8-201 4 Tracy Bee. . Referring Provider: Vaughn Woods [address] [address], [place], [address]. tel:[phone] [facility], [address], [id number], [place] tel:[phone] [facility] knee surgery post op (chief complaint) No Information Dec- 5-201 4 Tracy Bee. . Referring Provider: Vaughn Woods [address] [address], [place], [address]. tel:[phone] [facility], [address], [id number], [place] tel:[phone] [facility] knee surgery post op (chief complaint) No Information Oct-1 3-201 4 Gamaliel Bee. . Referring Provider: Vaughn Woods [address] [address], [place], [address]. tel:[phone] [facility], [address], [id number], [place] tel:[phone] [facility] knee surgery post op (chief complaint) No Information Oct-1 0-201 4 Tracy Bee. . Referring Provider: Vaughn Woods [address] [address], [place], [address]. tel:[phone] [facility], [address], [id number], [place] tel:[phone] [facility] knee surgery post op (chief complaint) No Information Oct-0 8-201 4 Tracy Bee. . Referring Provider: Vaughn Woods [address] [address], [place], [address]. tel:[phone], [address], [id number], [place] tel:[phone] [facility] knee surgery post op (chief complaint) No Information Oct-0 6-201 4 Tracy Bee. . Referring Provider: Vaughn Woods [address] [address], [place], [address]. tel:[phone] [facility], [address], [id number], [place] tel:[phone] [facility] knee surgery post op (chief complaint) No Information Oct-0 3-201 4 Gamaliel Bee. . Referring Provider: Vaughn Woods [address] [address], [place], [address]. tel:[phone], [address], [id number], [place] tel:[phone] [facility] knee surgery post op (chief complaint) No Information Dec-0 1-201 4 Gamaliel Bee. . Referring Provider: Vaughn Woods [address] [address], [place], [address]. tel:[phone], [address], [id number], [place] tel:[phone] [facility] knee surgery post op (chief complaint) No Information Sep-2 9- 4 Gamaliel Bee. . Referring Provider: Vaughn Woods [address] [address], [place], [address]. tel:[phone], [address], [id number], tel:[phone] [facility] knee surgery post op (chief complaint) No Information Sep-2 6- 4 Tracy Bee. . Referring Provider: Vaughn Woods [address] [address], [place], [address]. tel:[phone], [address], [id number], [place] tel:[phone] [facility] knee surgery post op (chief complaint) No Information Sep-2 4-201 4 Tracy Bee. . Referring Provider: Vaughn Woods [address] [address], [place], [address]. tel:[phone], [address], [id number], [place] tel:[phone] [facility] knee surgery post op (chief complaint) No Information Sep-2 2-201 4 Gamaliel Bee. . Referring Provider: Vaughn Woods [address] [address], [place], [address]. tel:[phone], [address], [id number], [place] tel:[phone] [facility] knee surgery post op (chief complaint) No Information Sep-1 9-201 4 Gamaliel Bee. . Referring Provider: Vaughn Woods [address] [address], [place], [address]. tel:[phone], [address] [place] [address], [id number], tel:[phone] [facility] knee surgery post op (chief complaint) No Information Sep-1 7-201 4 Tracy Bee. . Referring Provider: Vaughn Woods [address] [address], [place], [address]. tel:[phone], [address] [place] [address], [id number], tel:[phone] [facility] knee surgery post op (chief complaint) No Information Sep-1 5-201 4 Gamaliel Bee. . Referring Provider: Vaughn Woods [address] [address], [place], [address]. tel:[phone], [address], [id number], [place] tel:[phone] [facility] knee surgery post op (chief complaint) No Information Sep-1 0-201 4 Gamaliel Bee. . Referring Provider: Vaughn Woods [address] [address], [place], [address]. tel:[phone], [address], [id number], tel:[phone] [facility] knee surgery post op (chief complaint) No Information Sep-0 8-201 4 Tracy Bee. . Referring Provider: Vaughn Woods [address] [address], [place], [address]. tel:[phone], [address], [id number], tel:[phone] [facility] No Diagnosis Code NeededNo Diagnosis Code NeededNo Diagnosis Sep-0 5-201 4 Aaron Avalos. . Referring Provider: Physician Edwards. [facility], [address] [facility] [address], [place], [place], [id number], [place] tel:[phone] [facility] knee surgery post op (chief complaint) Knee Chrondomalacia PatellaKnee Loose BodiesLoose body in kneeChondromalacia of patella Sep-0 4 Tracy Gamboa. . Referring Provider: Vaughn Woods [facility] [address], [place], [address]. tel:[phone] Family History Family Member Type Diagnosis Age At Onset No Information Payers Payer name Insurance type Covered constitution party ID Yadira lu(s) [facility] [id number] Social History Type Description Quantity Date Captured Comments Sex Female Smoking Status No Information Chief Complaint And Reason For Visit No Information Reason For Referral Reason For Referral No Information History Of Present Illness Encounter Date Complaint History Of Prese nt Illness No Information Functional Status Date Functional Assessmen t No Information Instructions Date Instruction Additional Infor mation No Information Assessments Type Assessment Date No Information Patient Care Teams Name Effective Dates (start - stop) Status Members No Information
--- OUTSIDE RECORDS SUMMARY | 2024-10-09 00:58 | XMS_ITS | Encounter Summary ---
Author Organization [facility] Address [address] [place] [address] Phone Care Team Providers Care Pharmacy Grad Intern Name Role Phone Juan Cabral MD Primary Care Provider Encounter Details Date Type Department Care Team (Late st Contact Info) Description 09/26/2024 Results Follow-Up [facility] Cardiology [address] [facility] [address] 8th [place] [address] [place] [address] Ana Albert, KATIE [address] [facility] [address] [place] [address] ECG 12 lead Social History Tobacco Use [...] on file 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
--- OUTSIDE RECORDS SUMMARY | 2024-10-09 00:58 | XMS_ITS | Encounter Summary ---
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
--- OUTSIDE RECORDS SUMMARY | 2024-10-09 00:58 | XMS_ITS | Clinical Summary ---
Author Organization [facility] Address [address] [place] [address] Phone Care Team Providers Care Fender Mechanic Name Role Phone Yane Romero Primary Care Provider [phone] Allergies Active Allergy Reactions Criticality Noted Date Comments Carbamazepine Unknown 08/20/2024 Empagliflozin Unknown 08/20/2024 Haemophilus B Polysacc Tetan us Toxoid Conj Vaccine Unknown 08/20/2024 Wound Dressing Adhesive Unknown 08/20/2024 Tuberculin, Ppd Unknown 08/20/2024 Medications Xarelto 20 MG Tablet Take 20 mg by mouth daily. 05/25/19 25 Active rosuvastatin (CRESTOR) 20 MG Tablet Take 20 mg by mouth daily. 06/15/19 25 Active clopidogrel (PLAVIX) 75 MG Tablet Take 75 mg by mouth daily. 08/08/19 25 Active metFORMIN (GLUCOPHAGE) 500 MG Tablet Take 500 mg by mouth 2 times daily. 08/10/19 25 Active metoprolol tartrate (LOPRESSOR) 100 MG Tablet Take 100 mg by mouth 2 times daily. 06/27/19 25 Active Ranolazine 1000 MG TABLET SR 12 HR Take 1,000 mg by mouth 2 times daily. 07/04/19 25 Active Dulaglutide (TRULICITY SC) by Subcutaneous route. Active isosorbide mononitrate (IMDUR) 60 MG TABLET SR 24 HR Take 60 mg by mouth every morning. Active Syringe/Needle , Disp, (SYRINGE 3CC/25GX1) 25G X 1 3 ML Misc 1 Each by Does not apply route once a week for 4 doses. 4 Each 09/27/19 25 2024 Active Cyanocobalamin 1000 MCG/ML KitIndications :B12 deficiency 1,000 mcg by Intramuscular route once a week for 4 doses. 4 Kit 10/02/19 25 2024 Active Cyanocobalamin 1000 MCG/ML KitIndications :B12 deficiency 1,000 mcg by Injection route once a week for 4 doses. 4 Kit 09/27/19 25 2024 Discontinued Encounters Date Type Department Care Team Description 10/07/2024 3:15 PM CDT Speech Therapy [facility] [address] [place] [address] Braxton Rico, Brian Plasencia, [facility]-INTERACTIVE DIGITAL MEDIA SPECIALIST Ischemic stroke (HCC) (Primary Dx) Discharge Disposition: Discharged to home or Selfcare 10/07/2024 Travel 10/01/2024 Plan of Care Documentation [facility] [address] [place] [address] 09/30/2024 3:45 PM CDT Occupational Therapy [facility] [address] [place] [address] Braxton Rico, Della Nova, Ischemic stroke (HCC) Discharge Disposition: Discharged to home or Selfcare 09/30/2024 2:30 PM CDT Speech Therapy [facility] [address] [place] [address] Braxton Rico, Brian Plasencia, [facility]-INTERACTIVE DIGITAL MEDIA SPECIALIST Ischemic stroke (HCC) (Primary Dx) Discharge Disposition: Discharged to home or Selfcare 09/30/2024 Travel 09/26/2024 Telephone [facility] [address] [place] [address] Lakeshia Sierra APRN, BLINDSTITCH MACHINE OPERATOR 09/26/2024 Plan of Care Documentation [facility] [place] [address] [place] [address] 09/25/2024 3:15 PM CDT Speech Therapy [facility] [address] [place] [address] Braxton Rico MD Balun, McKayla K., [facility] Ischemic stroke (HCC) Discharge Disposition: Discharged to home or Selfcare 09/25/2024 8:40 AM CDT - 09/25/2024 11:59 PM CDT Hospital Encounter [facility] [address] [place] [address] Provider, Not On File Discharge Disposition: Discharged to home or Selfcare 09/25/2024 8:37 AM CDT - 09/25/2024 8:39 AM CDT Hospital Encounter [facility] [address] [place] [address] Provider, Not On File Discharge Disposition: Discharged to home or Selfcare 09/25/2024 8:36 AM CDT Hospital Encounter [facility] [address] [place] [address] Provider, Not On File Discharge Disposition: Discharged to home or Selfcare 09/25/2024 8:34 AM CDT - 09/25/2024 8:35 AM CDT Hospital Encounter [facility] [address] [place] [address] Provider, Not On File Discharge Disposition: Discharged to home or Selfcare 09/25/2024 Travel 09/17/2024 1:15 PM CDT Office Visit [facility] [address] [place] [address] Braxton Rico MD Ischemic stroke (HCC) (Primary Dx); Paroxysmal atrial fibrillation (HCC); Pure hypercholesterolemi a; B12 deficiency; Visual field defect; Type 2 diabetes mellitus without complication, unspecified whether senior living insulin use Discharge Disposition: Discharged to home or Selfcare 09/17/2024 Travel from Last 3 Months Family History Medical History Relation Name Comments Diabetes Brother Liver Cancer Father Coronary Artery Disease Mother Diabetes Mother Heart Attack Sister Relation Name Status Comments Brother Alive Father Mother Sister Social History Tobacco Use Types Packs/Day Years Used Date Smoking Tobacco: Former Cigarettes 0.5 38.7 0 08/20/1984 - 05/19/2023 Smokeless Tobacco: Never Tobacco Cessation:Counseling Given: Not Answered Alcohol Use Standard Drinks/Week Comments Never 0 (1 standard drink = 0.6 oz pur e alcohol) Comments Unknown Sex and Gender Information Value Date Recorded Sex Assigned at Not on file Legal Sex Female 12:08 AM CDT Gender Identity Not on file Sexual Orientation Not on file Last Filed Vital Signs Vital Sign Reading Time Taken Comments Blood Pressure 124/76 09/17/2024 12:59 PM CDT Pulse 78 09/17/2024 12:59 PM CDT Temperature 36.1 C (96.9 F) 09/17/2024 12:59 PM CDT Respiratory Rate 17 09/17/2024 12:5 9 PM CDT Oxygen Saturation 99% 09/17/2024 12: 59 PM CDT Inhaled Oxygen Concentration - - Weight 99.2 kg (218 lb 12.8 oz) 025 12:59 PM CDT Height 172.7 cm (5' 8) 09/17/2024 12:5 9 PM CDT Body Mass Index 33.27 09/17/2024 12:59 PM CDT Plan of Treatment Upcoming Encounters Date Type Department Care Team (Latest Contact Info) Description 10/16/2024 1:[address] Occupational Therapy [facility] [address] [place] [address] Braxton Rico MD [address] [place] [address] Della Friend [place] Discharge Disposition: Discharged to home or Selfcare 10/24/2024 2:[address] [facility] [address] [place] [address] Braxton Rico MD [address] [place] [address] Brian Pan CCC-INTERACTIVE DIGITAL MEDIA SPECIALIST [place] 11/04/2024 2:[address] [facility] at [address] [place] [address] Braxton Rico MD [address] [place] [address] Brian Pan CCC-INTERACTIVE DIGITAL MEDIA SPECIALIST [place] 11/11/2024 2:[address] [facility] at [address] [place] [address] Braxton Rico MD [address] [place] [address] Brian Pan CCC-INTERACTIVE DIGITAL MEDIA SPECIALIST [place] 11/19/2024 3:[address] [facility] at [address] [place] [address] Braxton Rico MD [address] [place] [address] Brian Pan CCC-INTERACTIVE DIGITAL MEDIA SPECIALIST [place] 01/21/2025 8:00 AM DIETETIC TECH Office Visit [facility] - Neurology [facility] [address] [place] [address] Lakeshia Sierra APRN, BLINDSTITCH MACHINE OPERATOR [address] [place] [address] Health Maintenance Due Date Last Done Comments Hepatitis C Virus (HCV) Screening 1960 Mammogram 1960 TdaP Immunization 1960 Pneumococcal Immunization (5 0+ years) (1 of 2 - PCV) 1979 Pap Smear 1981 Cervical Cancer Screening (CCS) 1990 HPV/Cotest 1990 Cologuard 2005 Colonoscopy 2005 Colorectal Cancer Screening 2005 Immunochemical Fecal Occult Blood 2005 Zoster Immunization (1 of 2) 2010 Respiratory Syncytial Virus (RSV) Immunization (Adult) (1 - Risk 60-74 years 1-dose series) 2020 SARS-COV-2 Immunization (2 - season) 2023 03/27/2021 Influenza Immunization (#1) 2024 Hepatitis B Immunization Aged Out No longer eligible based on patient's age to complete this topic Human Papillomavirus (HPV) Immunization Aged Out No longer eligible b ased on patient's age to complete this topic Meningococcal Immunization (ACWY) Aged Out No longer eligible based on patient's age to complete this topic Rotavirus Immunization Aged Out No lo nger eligible based on patient's age to complete this topic Procedures Procedure Name Priority Date/Time Associated Diagnosis Comments CT REFERENCE IMAGES FOR IMAGE IMPORT Routine 09/25/2024 8:40 AM CDT XR REFERENCE IMAGES FOR IMAGE IMPORT Routine 09/25/2024 8:37 AM CDT MR REFERENCE IMAGES FOR IMAGE IMPORT Routine 09/25/2024 8:[address] REFERENCE IMAGES FOR IMAGE IMPORT Routine 09/25/2024 8:34 AM CDT LIPID PANEL 08/15/2024 12:00 AM CDT FOLIC ACID (FOLATE) 08/15/2024 1 2:00 AM CDT VITAMIN B12 08/15/2024 12:00 AM CDT MAGNESIUM (MG) 08/15/2024 12:00 AM CDT BASIC METABOLIC PANEL W/ CALCIUM TOTAL 08/15/2024 12:00 AM CDT GLUCOSE 08/15/2024 12:00 AM CDT COMPLETE BLOOD COUNT (CBC) WITH DIFF 08/15/2024 12:00 AM CDT CMP (COMPREHENSIVE METABOLIC PANEL) 08/14/2024 12:00 AM CDT PROTIME (PT) (PROTHROMBIN TIME) 08/13/2024 12:00 AM CDT TROPONIN I (TRP I) 08/13/2024 12 :00 AM CDT APTT (PTT) 08/13/2024 12:00 AM CDT from Last 3 Months Results * CT REFERENCE IMAGES FOR IMAGE IMPORT (09/25/2024 8:40 AM CDT) Only the most recent of2 resultswithin the time period is included. us Not On File Provider IMG CT ORDERABLES Final Res ult * XR REFERENCE IMAGES FOR IMAGE IMPORT (09/25/2024 8:37 AM CDT) us Not On File Provider IMG DIAGNOSTIC ORDERABLES F inal Result * MR REFERENCE IMAGES FOR IMAGE IMPORT (09/25/2024 8:36 AM CDT) us Not On File Provider IMG MR ORDERABLES Final Res ult * VITAMIN B12 (08/15/2024 12:00 AM CDT) 08/15/2024 us Provider Scan CHEMISTRY ORDERABLES Final Resul t SCAN * MAGNESIUM (MG) (08/15/2024 12:00 AM CDT) 08/15/2024 us Provider Scan CHEMISTRY ORDERABLES Final Resul t SCAN * LIPID PANEL (08/15/2024 12:00 AM CDT) CHOLESTEROL 145 SCAN HDL CHOLESTEROL 54 SCAN LDL 51 SCAN 08/15/2024 us Provider Scan CHEMISTRY ORDERABLES Final Resul t Performing Organization Address [facility] de Phone Number SCAN * GLUCOSE (08/15/2024 12:00 AM CDT) 08/15/2024 us Provider Scan CHEMISTRY ORDERABLES Final Resul t Performing Organization Address [facility] de Phone Number SCAN * FOLIC ACID (FOLATE) (08/15/2024 12:00 AM CDT) 08/15/2024 us Provider Scan CHEMISTRY ORDERABLES Final Resul t Performing Organization Address [facility] de Phone Number SCAN * COMPLETE BLOOD COUNT (CBC) WITH DIFF (08/15/2024 12:00 AM CDT) 08/15/2024 us Provider Scan HEMATOLOGY ORDERABLES Final Resu lt Performing Organization Address [facility] de Phone Number SCAN * BASIC METABOLIC PANEL W/ CALCIUM TOTAL (08/15/2024 12:00 AM CDT) 08/15/2024 us Provider Scan CHEMISTRY ORDERABLES Final Resul t Performing Organization Address City/[facility] de Phone Number SCAN * CMP (COMPREHENSIVE METABOLIC PANEL) (08/14/2024 12:00 AM CDT) 08/14/2024 us Provider Scan CHEMISTRY ORDERABLES Final Resul t Performing Organization Address City/[facility]/ZIP Co de Phone Number SCAN * TROPONIN I (TRP I) (08/13/2024 12:00 AM CDT) 08/13/2024 us Provider Scan CHEMISTRY ORDERABLES Final Resul t SCAN * APTT (PTT) (08/13/2024 12:00 AM CDT) 08/13/2024 us Provider Scan HEMATOLOGY ORDERABLES Final Resu lt Performing Organization Address [facility] Co de Phone Number SCAN * PROTIME (PT) (PROTHROMBIN TIME) (08/13/2024 12:00 AM CDT) INR 1.1 SCAN 08/13/2024 us Provider Scan HEMATOLOGY ORDERABLES Final Resu lt Performing Organization Address [facility] de Phone Number SCAN from Last 3 Months Insurance Care Teams Fender Mechanic Relationship Specialty Start Date End Date Yane Romero PAC [address] [facility] [address] [place] [phone] PCP - General Physician Microelectronics Engineer 08/19/24
--- OUTSIDE RECORDS SUMMARY | 2024-10-09 00:58 | XMS_ITS | Continuity of Care Document ---
Author Organization [facility] Address [address] [place] [address] Phone Care Team Providers Care Pump Attendant Name Role Phone Azael Jackson MD Unavailable Unavailable Allergies, Adverse Reactions, Alerts Substance Reaction Status Criticality IODINE Active No Information Medications Medication Instructions Dosage Effective Dates (start - stop) Status Comments Tylenol 325 mg tablet take 1 tablet by oral route every 4 hours as needed 325 MG - Active GLUCOSAMINE SULFATE (unknown strength) Not Available - Active CALCIO LEONELA (unknown strength) Not Available - Active CLARITIN (unknown strength) Not Available - Active MP MAGNESIUM (unknown strength) Not Available - Active IRON (unknown strength) Not Available - Active VITAMIN B COMPLEX (unknown strength) Not Available - Active Procedures Procedure Date OFFICE/OUTPATIENT VISIT, EST OFFICE/OUTPATIENT VISIT, EST EYE EXAM MEDICAL ESTABLISHED PAT 2019 OFFICE/OUTPATIENT VISIT, EST OFFICE/OUTPATIENT VISIT, EST EYE EXAM, NEW PATIENT Advance Directives Directive Yes / No Effective Date File Name Other Directive No N/A N/A WARNING:The information contained in this section is historical and is provided for information only and does not constitute a legal document or any assurance that the information is still accurate. Please verify the information with the peters of the legal document before using it for clinical purposes. Encounters Encounter Description Practice Location Reason(s) For Visit Diagnoses Date Provider Providers Copied on Encounter OFFICE/OUTPAT IENT VISIT, EST [facility], [address], [place], [address], [place] tel:[phone] [facility] Medical follow-up exam (chief complaint) Graves disease [address] Manuel Addison. [address], [place], [place], [id number] , [place]. tel: [phone] Referring Provider: Azael Burnette, [address], [place], [address] . tel:[phone] OFFICE/OUTPAT IENT VISIT, EST [facility], [address], [place], [address], [place] tel: [phone] [facility] 2 year medical f/u exam (chief complaint) Graves disease 1 Manuel Addison. [address], [place], [place], [id number] , [place]. tel: [phone] Referring Provider: Azael Burnette, [address], [place], [address] . tel:[phone] [facility], [address], [place], [address], [place] tel: [phone] [facility] Medical follow-up exam (chief complaint) Graves disease 0 Manuel Addison. [address], [place], [place], [id number] , [place]. tel: [phone] Referring Provider: Azael Burnette, [address], [place], [address] . tel:[phone] OFFICE/OUTPAT IENT VISIT, [facility], [address], [place], [address], [place] tel: [phone] [facility] 1 year medical f/u exam (chief complaint) Graves disease Oct-3 0-201 7 Manuel Addison. [address], [place], [place], [id number] , [place]. tel: [phone] Referring Provider: Azael Burnette, [address], [place], [address] . tel:[phone] OFFICE/OUTPAT IENT VISIT, EST [facility], [address], [place], [address], [place] tel: [phone] [facility] Medical exam (chief complaint) Graves diseasePresbyopia 6 Manuel Addison. [address], [place], [place], [id number] , [place]. tel: [phone] Referring Provider: Azael Burnette, [address], [place], [address] . tel:[phone] [facility], [address], [place], [address], [place] tel: [phone] [facility] Eye examination (chief complaint)De creased vision (chief complaint) Graves diseasePresbyopia 4 Manuel Addison. [address], [place], [place], [id number] , [place]. tel: [phone] Referring Provider: Azael Burnette, [address], [place], [address] . tel:[phone] Family History Family Member Type Diagnosis Age At Onset Mother Problem (finding) glaucoma Payers Payer name Insurance type Covered constitution party ID Yadira lu(s) [facility] BL [id number] Social History Type Description Quantity Date Captured Comments Alcohol Use Details Unknown Caffeine Use Details Tobacco Use Status Current non-smoker Smoking Status Never smoker Non-Smoking Tobacco Use Details : No Details Available : No Details Available Sex Female Chief Complaint And Reason For Visit From encounter dated '03/21/2023 15:10'. Medical follow-up exam (chief complaint). Description: The 62 year old female presents for evaluation of Medical follow-up exam. pt worried about manifestation of thyroid eye disease, pt c/o occasional blurred VA OU that comes and goes x 1 yr, slightly affecting ADLs, pt finds mildly bothersome Reason For Referral Reason For Referral No Information History Of Present Illness Encounter Date Complaint History Of Prese nt Illness Medical follow-up exam The 62 ye ar old female presents for evaluation of Medical follow-up exam. pt worried about manifestation of thyroid eye disease, pt c/o occasional blurred VA OU that comes and goes x 1 yr, slightly affecting ADLs, pt finds mildly bothersome 2 year medical f/u exam The 60 y ear old female presents for evaluation of 2 year medical f/u exam. Pt requests cont care for Grave's and presbyopia. Mild decrease in Va OU x years, layne near. Pt is only using OTC readers. It varies with what power she uses. +2.00-+2.50.Pt denies COVID sxs. Medical follow-up exam The 58 ye ar old female presents for evaluation of Medical follow-up exam. 2 yr return, pt request continued care on GRAVES DISEASEPt uses OTC readers for NVA only, get's along well with these. OD has felt irritated first thing in the morning on and off for the 6 -8 months. Will use AT product, which helps with this. Denies any vision changes noted with dist OU. 1 year medical f/u exam This 56 year old female presents today for a 1 year medical follow-up exam. POH: Graves Disease - thyroid levels wnl since May! / Presbyopia OUPt c/o sudden intermittent FBS OS, 2 episodes in the past 1-2 mos. lasted just a few minutes and went away.Va seems ok, but occas has harder time reading and feels like she has to squint. Medical exam This 55 year old female presents today for Medical exam. Pt comes in for a one year check for Grave's disease and pt has concerns that this is a medical reason and doesn't feel she should be charged for a refraction because medical ins. should cover it. Eye examination This 53 year old female presents today for Eye examination. Dr. Evie Brar rec eye evaluation for Graves / Thyroid Disease. Has had Hx Proptosis. Decreased vision The patient als o complains of Decreased vision. Very Mild decrease in near vision in both eyes, gradual onset over past couple years. Wearing OTC readers for small print. Functional Status Date Functional Assessmen t No Information Instructions Date Instruction Additional Infor philippe Monitor.Letter to PCP. Related t o Graves disease Monitor. Related to Grave s disease Continue to lubricate. Related t o Graves disease Monitor. Related to Grave s disease Patient education given Discussed use of OTC readers. Re lated to Presbyopia Monitor. Related to Grave s disease Monitor. Related to Grave s disease Patient education given Discussed use of OTC readers. Re lated to Presbyopia Patient education given Assessments Type Assessment Date assessment Graves disease impression No eye involvement. No exposure of cornea and no motility issues. No retraction. Patient Care Teams Name Effective Dates (start - stop) Status Members No Information
--- OUTSIDE RECORDS SUMMARY | 2024-10-09 00:58 | XMS_ITS | Encounter Summary ---
Author Organization [facility] Address [address] [place] [address] Phone Care Team Providers Care Wireless Consultant Name Role Phone Juan Cabral MD Primary [...] on file Legal Sex Female 8:01 PM RETREADER Gender Identity Female 08/02/2020 7:06 PM CDT [...] on filedocumented in this encounter Care Teams Wireless Consultant Relationship Specialty Start Date End Date uJan Cabral MD [address] [facility] [address] [place] [address] PCP - General Family Medicine 03/28/19 documented as of this encounter
--- OUTSIDE RECORDS SUMMARY | 2024-10-09 00:58 | XMS_ITS | Encounter Summary ---
Author Organization [facility] Address [address] [place] [address] Phone Care Team Providers Care Gas Meter Installer Name Role Phone Juan Cabral MD [...] on file Legal Sex Female 8:01 PM CHIEF LIFESTYLE OFFICER Gender Identity Female 08/02/2020 7:06 PM CDT [...] on filedocumented in this encounter Care Teams Gas Meter Installer Relationship Specialty Start Date End Date Juan Cabral MD [address] [facility] [address] [facility] [address] [place] [address] PCP - General Family Medicine 03/28/19 documented as of this encounter
--- NOTE | 2024-10-09 08:30 | PM.IMHP ---
H&P: HPI History of Present Illness Date/Time: 10/09/24 08:30 Chief Complaint: History of stroke Narrative: 64-year-old with history of stroke. Recommended to have a transesophageal echocardiogram with agitated saline is saved to evaluate for possible cardiac etiology Review of Systems Review of Systems: All systems reviewed & are unremarkable except as noted in HPI and below Eyes: Eyes: Denies blurry vision ENT: Reports as per HPI and Reports Normal hearing present Cardiovascular: Cardiovascular: Denies chest pain Respiratory: Respiratory: Denies chest congestion Gastrointestinal: Gastrointestinal: Denies hematemesis Genitourinary: Genitourinary: Denies hematuria Musculoskeletal: Musculoskeletal: Denies myalgias Integumentary/Breasts: Skin/Breast: Denies pruritus Neurologic: Denies Abnormal speech present Psychiatric: Psychiatric: Denies behavioral changes Endocrine: Endocrine: Denies flushing Hematologic/Lymphatic: Hematologic/Lymphatic: Denies easy bleeding Allergic/Immunologic: Allergic/Immunologic: Denies GI upset with certain foods PMFSH Past Medical History Medical History CKD (chronic kidney disease), stage III Heart and renal disease, hypertensive Vitamin B12 deficiency Diabetes mellitus with diabetic neuropathy, without long-term current use of insulin Type 2 diabetes mellitus Chronic anticoagulation Obstructive sleep apnea on CPAP Paroxysmal atrial fibrillation Hypertension Coronary artery disease Status post right coronary artery stent in 2019. Left heart catheterization in December 2020 showed a patent stent with nonocclusive 30% stenosis of the mid RCA. Controlled diabetes mellitus Hyperlipemia Diastolic heart failure Essential hypertension Chest pain Hypothyroidism Tobacco use disorder Surgical History Surgical History S/P ablation of atrial fibrillation History of cholecystectomy History of heart artery stent (2019) Right coronary artery. Status post rotator cuff repair Status post hysterectomy Family History Family History Sibling Patient's sister is in good health Family history of type 2 diabetes mellitus Acute myocardial infarction Sibling Family history of type 2 diabetes mellitus Sibling Family history of type 2 diabetes mellitus Sibling Family history of type 2 diabetes mellitus Sibling Family history of type 2 diabetes mellitus Coronary artery disease involving coronary bypass graft Mother Family history of type 2 diabetes mellitus Acute myocardial infarction Coronary artery disease involving coronary bypass graft Cerebrovascular accident Hypertension Father Liver cancer Lupus Hypertension Social History Social History Social History: Surrogate decision maker: Hola Ortiz, significant other. Code status: Full code. Smoking packs per day: 0.5 Smoking cigarettes per day: 10.0 Years smoked: 40 Smoking pack-years: 20.00 Smoking status: Former smoker Tobacco type: cigarettes Second hand tobacco smoke exposure: No Smoking end date: 05/19/23 Alcohol intake: never Substance use: never Substance use type: does not use Do You Feel Safe in your Home?: Yes Lack of Transportation: No Lack of Food: Never True Current Housing: I Have Housing Concerned About Future Housing: No Difficulty Paying Gas/Electric Bills: No Difficulty Paying for Meds: No Currently Unemployed: No Education: Bachelor's Degree Difficulty w/ Childcare or Family Care: No Living arrangements: with family Occupation/Education: occupation Gender identity (if verbalized by the patient): Female Sexual Orientation (if Verbalized by the Patient): Straight or Heterosexual Spiritual care concerns: No Meds Home Medications and Allergies Home Medications ?Medication ?Instructions ?Recorded ?Confirmed ?Type rosuvastatin 20 mg tablet (Crestor) 20 mg PO DAILY 04/04/19 10/08/24 History clopidogrel 75 mg tablet (Plavix) 75 mg PO DAILY #30 tabs 04/18/19 10/08/24 Rx nitroglycerin 0.4 mg sublingual 0.4 mg sublingual ONCE PRN Chest 06/04/19 10/08/24 History tablet (Nitrostat) Pain ranolazine 1,000 mg 1,000 mg PO Q12H 08/04/22 10/08/24 History tablet,extended release,12 hr fluticasone propionate 50 2 spray intranasal BID #16 grams 12/03/23 10/08/24 Rx mcg/actuation nasal spray,suspension (Flonase Allergy Relief) Lasix 20 mg PO .q48 02/26/24 10/08/24 History rivaroxaban 20 mg tablet (Xarelto) 20 mg PO Q24H 02/26/24 10/08/24 History lisinopril 40 mg tablet 40 mg PO DAILY #90 tabs 04/26/24 10/08/24 Rx topiramate 50 mg capsule,extended 50 mg PO DAILY #90 caps 04/26/24 10/08/24 Rx release 24 hr tramadol 50 mg tablet 50 mg PO Q8H PRN pain #30 tabs 08/19/24 10/08/24 Rx semaglutide 0.25 mg or 0.5 mg (2 0.25 mg (0.368 mL) subcut WEEKLY 10/02/24 10/08/24 Rx mg/3 mL) subcutaneous pen injector #3 mL (Ozempic) isosorbide mononitrate 30 mg 60 mg PO DAILY 10/08/24 10/08/24 History tablet,extended release 24 hr metformin 500 mg tablet 1,000 mg PO DAILY 10/08/24 10/08/24 History Allergies Allergy/AdvReac Type Severity Reaction Status Date / Time carbamazepine Allergy Unknown Unknown Verified 10/08/24 12:21 Tetanus Vaccines and Toxoid Allergy Unknown Unknown Verified 10/08/24 12:21 tuberculin, purified protein Allergy Unknown Unknown Verified 10/08/24 12:21 deriva adhesive tape Allergy Unknown Verified 10/08/24 12:21 empagliflozin (From Allergy Unknown Verified 10/08/24 12:21 Jardiance) TETANUS TOXOID,FLUID Allergy Unknown Unknown Uncoded 10/08/24 12:21 Vital Signs Vital Signs - 24 hr 10/09/24 07:21 Temperature 36.6 C Pulse Rate 69 Respiratory Rate 16 Blood Pressure 157/81 H Pulse Oximetry 99 Oxygen Delivery Room Air Exam Narrative: Alert oriented. Appears stated age Const: General: comfortable and no acute distress HENMT: Face/Nose/Sinus: Normal nares present Mouth: Yes moist mucous membranes Eyes: Sclera: sclerae normal Neck: Neck: supple Chest: Other: No reproducible chest wall pain to palpation Resp: Effort & Inspection: normal respiratory effort Auscultation: clear to auscultation bilaterally Cardio: Rate: regular rate Rhythm: regular rhythm GI: Inspection: non-distended GI Palp: Yes Soft to palpation Skin: General skin exam: normal color Neuro: Speech: normal speech Extrem: General: normal to inspection Psych: Mental Status: mental status grossly normal Affect: normal affect Assessment and Plan Assessment and plan (1) History of stroke: Code(s): Z86.73 - Personal history of transient ischemic attack (TIA), and cerebral infarction without residual deficits Status: Acute Plan [facility] with agitated saline study Moderate sedation
--- NOTE | 2024-10-09 08:34 | P.SEDATION_ITS ---
Moderate Sedation Note-Pt Data Patient Data Diagnosis: History of stroke Present Complaint: History of stroke Procedure to be performed/Plan: Transesophageal echocardiography with color-flow pulse-wave Doppler with agitated saline study Moderate sedation Allergies Allergy/AdvReac Type Severity Reaction Status Date / Time carbamazepine Allergy Unknown Unknown Verified 10/08/24 12:21 Tetanus Vaccines and Toxoid Allergy Unknown Unknown Verified 10/08/24 12:21 tuberculin, purified protein Allergy Unknown Unknown Verified 10/08/24 12:21 deriva adhesive tape Allergy Unknown Verified 10/08/24 12:21 empagliflozin (From Allergy Unknown Verified 10/08/24 12:21 Jardiance) TETANUS TOXOID,FLUID Allergy Unknown Unknown Uncoded 10/08/24 12:21 Home Medications ?Medication ?Instructions ?Recorded ?Confirmed ?Type rosuvastatin 20 mg tablet (Crestor) 20 mg PO DAILY 04/04/19 10/08/24 History clopidogrel 75 mg tablet (Plavix) 75 mg PO DAILY #30 tabs 04/18/19 10/08/24 Rx nitroglycerin 0.4 mg sublingual 0.4 mg sublingual ONCE PRN Chest 06/04/19 10/08/24 History tablet (Nitrostat) Pain ranolazine 1,000 mg 1,000 mg PO Q12H 08/04/22 10/08/24 History tablet,extended release,12 hr fluticasone propionate 50 2 spray intranasal BID #16 grams 12/03/23 10/08/24 Rx mcg/actuation nasal spray,suspension (Flonase Allergy Relief) Lasix 20 mg PO .q48 02/26/24 10/08/24 History rivaroxaban 20 mg tablet (Xarelto) 20 mg PO Q24H 02/26/24 10/08/24 History lisinopril 40 mg tablet 40 mg PO DAILY #90 tabs 04/26/24 10/08/24 Rx topiramate 50 mg capsule,extended 50 mg PO DAILY #90 caps 04/26/24 10/08/24 Rx release 24 hr tramadol 50 mg tablet 50 mg PO Q8H PRN pain #30 tabs 08/19/24 10/08/24 Rx semaglutide 0.25 mg or 0.5 mg (2 0.25 mg (0.368 mL) subcut WEEKLY 10/02/24 10/08/24 Rx mg/3 mL) subcutaneous pen injector #3 mL ([employer]) isosorbide mononitrate 30 mg 60 mg PO DAILY 10/08/24 10/08/24 History tablet,extended release 24 hr metformin 500 mg tablet 1,000 mg PO DAILY 10/08/24 10/08/24 History Sedation/Anesthesia: No previous sedation/anesthesia problems (including family history). [facility] Past Medical History Medical History CKD (chronic kidney disease), stage III Heart and renal disease, hypertensive Vitamin B12 deficiency Diabetes mellitus with diabetic neuropathy, without long-term current use of insulin Type 2 diabetes mellitus Chronic anticoagulation Obstructive sleep apnea on CPAP Paroxysmal atrial fibrillation Hypertension Coronary artery disease Status post right coronary artery stent in 2019. Left heart catheterization in December 2020 showed a patent stent with nonocclusive 30% stenosis of the mid RCA. Controlled diabetes mellitus Hyperlipemia Diastolic heart failure Essential hypertension Chest pain Hypothyroidism Tobacco use disorder Surgical History Surgical History S/P ablation of atrial fibrillation History of cholecystectomy History of heart artery stent (2019) Right coronary artery. Status post rotator cuff repair Status post hysterectomy Family History Family History Sibling Patient's sister is in good health Family history of type 2 diabetes mellitus Acute myocardial infarction Sibling Family history of type 2 diabetes mellitus Sibling Family history of type 2 diabetes mellitus Sibling Family history of type 2 diabetes mellitus Sibling Family history of type 2 diabetes mellitus Coronary artery disease involving coronary bypass graft Mother Family history of type 2 diabetes mellitus Acute myocardial infarction Coronary artery disease involving coronary bypass graft Cerebrovascular accident Hypertension Father Liver cancer Lupus Hypertension Social History Social History Social History: Surrogate decision maker: Hola Ortiz, significant other. Code status: Full code. Smoking packs per day: 0.5 Smoking cigarettes per day: 10.0 Years smoked: 40 Smoking pack-years: 20.00 Smoking status: Former smoker Tobacco type: cigarettes Second hand tobacco smoke exposure: No Smoking end date: 05/19/23 Alcohol intake: never Substance use: never Substance use type: does not use Do You Feel Safe in your Home?: Yes Lack of Transportation: No Lack of Food: Never True Current Housing: I Have Housing Concerned About Future Housing: No Difficulty Paying Gas/Electric Bills: No Difficulty Paying for Meds: No Currently Unemployed: No Education: Bachelor's Degree Difficulty w/ Childcare or Family Care: No Living arrangements: with family Occupation/Education: occupation Gender identity (if verbalized by the patient): Female Sexual Orientation (if Verbalized by the Patient): Straight or Heterosexual Spiritual care concerns: No Mod Sed Physical Exam Physical Exam Pre Procedural Exam: Normal: Appearance, Eyes, Ears, Nose, Neck, Throat, Airway, Lungs, Heart Size, Heart Rate, Heart Rhythm, Neuro Exam and Skin Hours since solid foods: 12 Hours since liquid intake: 12 Mallampati Classification: class II Internal Medicine - PN: Obj Da Vital Signs Vital Signs: Vital Signs - 24 hr 10/09/24 07:21 Temperature 36.6 C Pulse Rate 69 Respiratory Rate 16 Blood Pressure 157/81 H Pulse Oximetry 99 Oxygen Delivery Room Air ASA Classification/Sedation ASA Classification/Sedation ASA Class: II Emergent: No Risks: Risks, benefits and alternatives explained and patient/family accepted plan for sedation. Patient re-evaluated immediately prior to sedation.
[2024-10-09] MEDS: fentaNYL CITRATE INJ (*CRX) 100 MCG/2 ML VIAL 50 MCG IV PUSH (08:48)
[2024-10-09] MEDS: MIDAZOLAM HCL (*CRX) 2 MG/2 ML VIAL 3 MG IV PUSH (08:48)
--- NOTE | 2024-10-09 08:57 | WPDTEECHO ---
JACINTO TransEsophageal Echocardiogram Date of procedure: 10/09/24 Procedure Type: 1. Multiplanar transesophageal echocardiography with color flow and pulse wave Doppler 2. Agitated saline study 3. Moderate sedation Diagnosis: CVA Indications: CVA Image Quality: Good Findings: After discussing the risks, benefits alternatives of procedure patient agreeable via verbal and written informed consent. Risks discussed included soft rupture perforation, , bleeding, pain, infection, sore throat, adverse reaction anesthesia. After informed consent was signed and after time-out was taken procedure was initiated. Continuous monitor car operator, pulse ox states in serial blood pressure assessments were taken. After adequate sedation the echoscope was intubated into the esophagus without difficulty. Images were is were then taken Patient tolerated procedure well. At the conclusion, the procedure the echo scope was withdrawn without complication. Procedure start time 8:44 a.m. Procedure stop time 8:55 a.m. Medications used: Hurricane spray to the hypopharynx times 3 for topical anesthetic. A total of 3 mg of Versed and 50 mcg of fentanyl given in divided dosages for moderate sedation. Medications were administered patient was monitored by Ginette Rene RN Complications: None Blood loss: None Findings: Normal left ventricular size and function with ejection fraction of 60-65%. Left ventricular hypertrophy is noted. The right ventricular size and function is grossly normal. Mild left atrial enlargement. Mild right atrial enlargement. Left atrial appendage is free of mass or thrombus with pulsed wave velocities of 75 centimeters/second. Atrial septum is intact with no color flow or agitated saline evidence of shunting. The mitral valve appears to be normal with mild mitral regurgitation. Tricuspid valve is normal with mild tricuspid regurgitation. Pulmonic valve is grossly normal without significant pulmonic insufficiency. Aortic valve is trileaflet, modestly calcified with mild aortic stenosis. Trivial aortic insufficiency. No pericardial effusion. Aortic root measures 2.6 cm at the sinus of Valsalva. It is not large but upon withdrawal the echoscope the ascending aorta and aortic arch were re-evaluated and there is atherosclerotic plaquing noted within the ascending aorta and aortic arch. Conclusions: 1. Normal left ventricular size and function ejection fraction 60 65% 2. Mild mitral and tricuspid regurgitation 3. Normal left atrial appendage without mass or thrombus 4. Intact atrial septum without evidence of PFO. Negative bubble study. 5. Aortic valve calcifications with mild aortic stenosis 6. Ascending aortic and aortic arch atherosclerotic plaquing noted. 7. Moderate sedation
== END 2024-10-09 10:06 | disposition home or self-care (01) ==
PROVIDERS: PCP Family Medicine; Visit Provider Internal Medicine Cardiovascular Disease
PROC: (CPT 93312; principal; 2024-10-09 08:30)
DX: I63.9 Cerebral infarction, unspecified (principal); I08.1 Rheumatic disorders of both mitral and tricuspid valves; I35.0 Nonrheumatic aortic (valve) stenosis; I70.0 Atherosclerosis of aorta; I48.0 Paroxysmal atrial fibrillation; E78.5 Hyperlipidemia, unspecified; I12.9 Hypertensive chronic kidney disease with stage 1 through stage 4 chronic kidney disease, or unspecified chronic kidney disease; E11.22 Type 2 diabetes mellitus with diabetic chronic kidney disease; N18.30 Chronic kidney disease, stage 3 unspecified; E11.40 Type 2 diabetes mellitus with diabetic neuropathy, unspecified; I11.0 Hypertensive heart disease with heart failure; I50.30 Unspecified diastolic (congestive) heart failure; E03.9 Hypothyroidism, unspecified; E53.8 Deficiency of other specified B group vitamins; I25.10 Atherosclerotic heart disease of native coronary artery without angina pectoris; G47.33 Obstructive sleep apnea (adult) (pediatric); Z79.01 Long term (current) use of anticoagulants; Z79.02 Long term (current) use of antithrombotics/antiplatelets; Z79.891 Long term (current) use of opiate analgesic; Z79.85 Long-term (current) use of injectable non-insulin antidiabetic drugs; Z79.84 Long term (current) use of oral hypoglycemic drugs; Z99.89 Dependence on other enabling machines and devices; Z98.890 Other specified postprocedural states; Z95.5 Presence of coronary angioplasty implant and graft; Z90.49 Acquired absence of other specified parts of digestive tract; Z87.891 Personal history of nicotine dependence; Z86.73 Personal history of transient ischemic attack (TIA), and cerebral infarction without residual deficits; Z80.0 Family history of malignant neoplasm of digestive organs; Z82.49 Family history of ischemic heart disease and other diseases of the circulatory system
CPT/HCPCS: 93312; 93320; 93325; J2250; J3010; J7040